=== PATIENT | male | born 1960 | race Caucasian/White ===

== ENCOUNTER 2023-06-25 13:41 | Inpatient (IN) | payer MEDICARE, OTHER ==
[2023-06-25 14:19] LABS: Glucose,Whole Blood 532 mg/dL (70-110)
[2023-06-25 14:48] LABS: Basophils % (A) 0 %; Eosinophils # (A) 0.1 k/uL (0-0.7); Eosinophils % (A) 0 %; HGB 10.4 gm/dL (13.0-17.5); Lymphocytes # (A) 1.2 k/uL (1.0-4.8); Lymphocytes % (A) 10 %; MCH 31.6 pg (25.0-35.0); MCHC 35.8 g/dL (31.0-37.0); MCV 88.3 fL (80.0-100.0); Mean Platelet Volume 9.3; Monocytes # (A) 1.1 k/uL (0-1.0); Monocytes % (A) 9 %; Neutrophils # (A) 9.2 k/uL (1.3-7.7); Neutrophils % (A) 78 %; Platelet Count 187 k/uL (150-450); RBC 3.28 m/uL (4.30-5.90); RDW 13.1 % (11.5-15.5); WBC 11.9 k/uL (3.8-10.6)
[2023-06-25 15:15] LABS: ALT 68 U/L (4-49); AST 38 U/L (17-59); African American GFR (CKD) 38 (>60 ml/min/1.73 sqM); Albumin 4.2 g/dL (3.5-5.0); Alkaline Phosphatase 153 U/L (38-126); Anion Gap 13 mmol/L; Blood Urea Nitrogen 90 mg/dL (9-20); Calcium 8.9 mg/dL (8.4-10.2); Carbon Dioxide 25 mmol/L (22-30); Chloride 103 mmol/L (98-107); Glucose 495 mg/dL (74-99); Non-African American GFR(CKD) 32 (>60 ml/min/1.73 sqM); Potassium 4.7 mmol/L (3.5-5.1); Sodium 141 mmol/L (137-145); Total Bilirubin 0.5 mg/dL (0.2-1.3); Total Protein 6.9 g/dL (6.3-8.2)
--- NOTE | 2023-06-25 15:31 | ED ---
General Adult HPI - General Chief complaint: Altered Mental Status Stated complaint: Hyperglycemia Time Seen by Provider: 06/25/23 13:50 Source: patient, EMS, RN notes reviewed, old records reviewed Mode of arrival: EMS Limitations: no limitations, altered mental status - History of Present Illness Initial comments: This is a 63-year-old male who was transferred to us from the hospital. We were told the patient was in DKA and renal failure. Patient arrived they aren't giving him Ativan and Haldol and [address] here for combativeness. Patient was unable to give any history and no one came with the patient. Patient did not appear to be in DKA from the lab work sent. Ear to be dehydrated with hyperglycemia as well as a possible mass on the CAT scan and some acute renal failure. Review of Systems ROS Statement: Those systems with pertinent positive or pertinent negative responses have been documented in the HPI. ROS Other: All systems not noted in ROS Statement are negative. Past Medical History Past Medical History: Unable to Obtain History of Any Multi-Drug Resistant Organisms: Unobtainable Past Surgical History: Unable to Obtain Past Psychological History: Unable to Obtain Smoking Status: Unknown if ever smoked General Exam - General Exam Comments Initial Comments: GENERAL: Patient is well-developed and well-nourished. Patient is nontoxic and well- hydrated and is in mild distress. ENT: Neck is soft and supple. No significant lymphadenopathy is noted. Oropharynx is clear. Moist mucous membranes. Neck has full range of motion without eliciting any pain. EYES: The sclera were anicteric and conjunctiva were pink and moist. Extraocular movements were intact and pupils were equal round and reactive to light. Eyelids were unremarkable. PULMONARY: Unlabored respirations. Good breath sounds bilaterally. No audible rales rhonchi or wheezing was noted. CARDIOVASCULAR: There is a regular rate and rhythm without any murmurs gallops or rubs. ABDOMEN: Soft and nontender with normal bowel sounds. SKIN: Skin is clear with no lesions or rashes and otherwise unremarkable. NEUROLOGIC: Patient is alert and oriented 0. Unable to complete neuro exam since patient was very obtunded secondary to medications MUSCULOSKELETAL: Normal extremities with adequate strength and full range of motion. LYMPHATICS: No significant lymphadenopathy is noted PSYCHIATRIC: Normal psychiatric evaluation. Limitations: no limitations, altered mental status Course Vital Signs 06/25/23 06/25/23 06/25/23 13:49 14:22 15:16 Temperature 98.6 F Pulse Rate 63 73 73 Respiratory 18 18 18 Rate Blood Pressure 99/57 136/74 O2 Sat by Pulse 95 99 96 Oximetry Medical Decision Making - Medical Decision Making EKG was interpreted by myself. EKG shows a sinus rhythm at 66 bpm MS interval is 154 QRS is 117 QT interval is 417 QTC is 4:30. EKG shows no ST segment elevation or depression. Was pt. sent in by a medical professional or institution (, PA, OPERATING ROOM MANAGER, urgent care, hospital, or retirement...) When possible be specific @ -[facility] sent the patient to us Did you speak to anyone other than the patient for history (EMS, parent, family, police, friend...)? What history was obtained from this source @ -I got all the history from the [facility] ER doctor Did you review nursing and triage notes (agree or disagree)? Why? @ -I reviewed and agree with nursing and triage notes Were old charts reviewed (outside hosp., previous admission, EMS record, old EKG, old radiological studies, urgent care reports/EKG's, retirement records)? Report findings @ -I reviewed all the charts and lab work and radiological studies that came with the patient from [facility] Differential Diagnosis (chest pain, altered mental status, abdominal pain women, abdominal pain men, vaginal bleeding, weakness, fever, dyspnea, syncope, headache, dizziness, GI bleed, back pain, seizure, CVA, palpatations, mental health, musculoskeletal)? @ -Differential Altered Mental Status: Hypoglycemia, DKA, hypercapnia, ETOH, overdose, CO poisoning, trauma, myxedema coma, HTN encephalopathy, infection, encephalitis, psychosis, intercranial hemorrhage, hepatic encephalopathy, meningitis, CVA, this is not meant to be an all-inclusive list EKG interpreted by me (3pts min.). @ -As above X-rays interpreted by me (1pt min.). @ -None done CT interpreted by me (1pt min.). @ -None done U/S interpreted by me (1pt. min.). @ -None done What testing was considered but not performed or refused? (CT, X-rays, U/S, labs)? Why? @ -None What meds were considered but not given or refused? Why? @ -None Did you discuss the management of the patient with other professionals (professionals i.e. DrDejuan, PA, OPERATING ROOM MANAGER, lab, RT, psych nurse, social services specialist, bilingual student tutor, teacher, returning officer, pillowcase cleaner)? Give summary @ -I spoke with sounds physicians and they agreed to admit the patient admitted the patient I wrote admitting orders Was smoking cessation discussed for >3mins.? @ -No Was critical care preformed (if so, how long)? @ -No Were there social determinants of health that impacted care today? How? (Homelessness, low income, unemployed, alcoholism, drug addiction, transportation, low edu. Level, literacy, decrease access to med. care, intermediate, rehab)? @ -No Was there de-escalation of care discussed even if they declined (Discuss DNR or withdrawal of care, Hospice)? DNR status @ -No What co-morbidities impacted this encounter? (DM, HTN, Smoking, COPD, CAD, Cancer, CVA, ARF, Chemo, Hep., AIDS, mental health diagnosis, sleep apnea, morbid obesity)? @ -None Was patient admitted / discharged? Hospital course, mention meds given and route, prescriptions, significant lab abnormalities, going to OR and other pertinent info. @ -Patient was Insulin Drip. Patient Received 2 L of Fluid. Patient's CT Showed a Mass in the Mediastinum Which They Did Not Mention with Triage the Patient. Patient Was Not Acidotic so Patient Is Not in DKA. Patient's Creatinine Was Elevated but since the Fluids Were Given at His Come down. Undiagnosed new problem with uncertain prognosis? @ -No Drug Therapy requiring intensive monitoring for toxicity (Heparin, Nitro, Insulin, Cardizem)? @ -No Were any procedures done? @ -No Diagnosis/symptom? @ -Dehydration Acute, or Chronic, or Acute on Chronic? @ -Acute Uncomplicated (without systemic symptoms) or Complicated (systemic symptoms)? @ -Complicated Side effects of treatment? @ -No Exacerbation, Progression, or Severe Exacerbation? @ -No Poses a threat to life or bodily function? How? (Chest pain, USA, CA, pneumonia, PE, COPD, DKA, ARF, appy, cholecystitis, CVA, Diverticulitis, Homicidal, Suicidal, threat to staff... and all critical care pts) @ -Yes this could lead to severe dehydration and poor perfusion and end organ dysfunction Diagnosis/symptom? @ -Mediastinal mass Acute, or Chronic, or Acute on Chronic? @ -Acute Uncomplicated (without systemic symptoms) or Complicated (systemic symptoms)? @ -Complicated Side effects of treatment? @ -none Exacerbation, Progression, or Severe Exacerbation] @ -no Poses a threat to life or bodily function? @ -no Diagnosis/symptom? @ -Acute renal failure Acute, or Chronic, or Acute on Chronic? @ -Acute Uncomplicated (without systemic symptoms) or Complicated (systemic symptoms)? @ -Complicated Side effects of treatment? @ -none Exacerbation, Progression, or Severe Exacerbation] @ -no Poses a threat to life or bodily function? @ -no - Lab Data Result diagrams: 06/25/23 14:23 06/25/23 14: Lab Results 06/25/23 06/25/23 06/25/23 Range/Units 14:17 14:23 14:23 WBC 11.9 H (3.8-10.6) k/uL RBC 3.28 L (4.30-5.90) m/uL Hgb 10.4 L (13.0-17.5) gm/dL Hct 29.0 L (39.0-53.0) % MCV 88.3 (80.0-100.0) fL MCH 31.6 (25.0-35.0) pg MCHC 35.8 (31.0-37.0) g/dL RDW 13.1 (11.5-15.5) % Plt Count 187 (150-450) k/uL MPV 9.3 Neutrophils % 78 % Lymphocytes % 10 % Monocytes % 9 % Eosinophils % 0 % Basophils % 0 % Neutrophils # 9.2 H (1.3-7.7) k/uL Lymphocytes # 1.2 (1.0-4.8) k/uL Monocytes # 1.1 H (0-1.0) k/uL Eosinophils # 0.1 (0-0.7) k/uL Basophils # 0.0 (0-0.2) k/uL Sodium 141 (137-145) mmol/L Potassium 4.7 (3.5-5.1) mmol/L Chloride 103 (98-107) mmol/L Carbon Dioxide 25 (22-30) mmol/L Anion Gap 13 mmol/L BUN 90 H (9-20) mg/dL Creatinine 2.08 H (0.66-1.25) mg/dL Est GFR (CKD-EPI)AfAm 38 (>60 ml/min/1.73 sqM) Est GFR (CKD-EPI)NonAf 32 (>60 ml/min/1.73 sqM) Glucose 495 H (74-99) mg/dL POC Glucose (mg/dL) 532 H (70-110) mg/dL POC Glu Propagation Manager [facility]ASS[facility] Nathalie Gallardo Calcium 8.9 (8.4-10.2) mg/dL Total Bilirubin 0.5 (0.2-1.3) mg/dL AST 38 (17-59) U/L ALT 68 H (4-49) U/L Alkaline Phosphatase 153 H (38-126) U/L Total Protein 6.9 (6.3-8.2) g/dL Albumin 4.2 (3.5-5.0) g/dL Disposition Clinical Impression: Dehydration, Acute renal failure, Hyperglycemia, Mediastinal mass Disposition: ADMITTED IP TO THIS HOSP Referrals: None,Stated [Primary Care Provider] - 1-2 days Time of Disposition: 15:31
--- NOTE | 2023-06-25 15:45 | P.HPIM ---
History of Present Illness H&P Date: 06/25/23 Patient is a 63-year-old male with no well known past medical history presenting from outside hospital for hyperglycemia, altered mentation. Patient unable to provide any meaningful history. Records reviewed from outside facility. On initial presentation, he should still EDC was 10.4, hemoglobin 9.5, anion gap 16, bicarb 24, BUN 85, creatinine 2.9, glucose 650, pH 7.358, pCO2 37, lactate 1.6, respiratory viral panel negative, troponin negative, acetone minimal, UA negative. EKG shows sinus rhythm. CT head showed no acute process. CT abdomen showed constipation and distended bladder. CT neck showed right lobe thyroid mass. Per records, patient received 2 mg of IV Haldol, 0.5 mg of IV Ativan as well as was started on insulin drip. Per report, patient received 5 mg of IV Versed on the way from other hospital. In the ED at our facility, patient saturating 95% on 3 L, rest of the vitals signs were otherwise normal limits. Point of care glucose was 532. Labs at our facility showed WBC of 11.9, hemoglobin of 10.4, BUN 90, creatinine on 08, glucose of 495, mildly elevated ALT of 68, ALP 153. Patient being admitted for acute metabolic encephalopathy as well as possible HHS. Pertinent positives and negatives as discussed in HPI, a complete review of systems was performed and all other systems are negative. Patient seen and examined at bedside. Vital signs reviewed General: nontoxic, no distress, appears at stated age Derm: warm, dry Head: atraumatic, normocephalic, symmetric Eyes: EOMI, no lid lag, anicteric sclera, pupils equal round reactive to light ENT: Nose and ears atraumatic Neck: No thyromegaly, supple Mouth: no lip lesion, mucus membranes moist Cardiovascular: S1S2 reg, no murmur, no edema Lungs: clear to auscultation bilateral, no rhonchi, no rales, no wheeze, no accessory muscle use Abdominal: soft, nontender to palpation, no guarding, no appreciable organomegaly Ext: no gross muscle atrophy, muscle strength muscle strength 5 out of 5 in all 4 extremities, no contractures Neuro: CN II-XII grossly intact Psych: Alert, oriented, appropriate affect Assessment/Plan: Acute metabolic encephalopathy Hyperglycemia, concerning for HHS versus DKA Leukocytosis Normocytic anemia, unknown baseline Acute kidney injury, baseline creatinine Constipation Thyroid mass Urinary retention -CT head did not show any acute process -TSH, B12, folic acid, A1c pending -Renal ultrasound ordered -Place Becerril catheter -Repeat CMP tomorrow -Blood cultures ordered -UA negative at outside facility -Thyroid ultrasound ordered -MiraLAX when patient is more awake -Continue insulin drip, monitor for hypoglycemia -No records available in regards to family contact or past medical history -Patient also received 5 mg of IV Versed en route from other hospital, as well as 2 mg of IV Haldol 0.5 mg of Ativan at outside hospital The patient is admitted with an anticipated greater than 2 midnight stay as inp atient status for evaluation of encephalopathy. Surrogate decision-maker: Not available CODE STATUS: Full code DVT prophylaxis: Subcu heparin Anticipated discharge date: Pending clinical course Anticipated discharge place: Pending clinical course A total of 55 minutes was spent on the care of this complex patient more than 50% of the time was spent in counseling and care coordination. Past Medical History Past Medical History: Unable to Obtain History of Any Multi-Drug Resistant Organisms: Unobtainable Past Surgical History: Unable to Obtain Past Psychological History: Unable to Obtain Smoking Status: Unknown if ever smoked Medications and Allergies Allergies Allergy/AdvReac Type Severity Reaction Status Date / Time latex Allergy Itching Verified 06/25/23 15:42 Penicillins Allergy Itching Verified 06/25/23 15:41 Physical Exam Vitals: Vital Signs Temp Pulse Resp BP Pulse Ox 06/25/23 15:16 73 18 136/74 96 06/25/23 14:22 98.6 F 73 18 99 06/25/23 13:49 63 18 99/57 95 Intake and Output 06/25/23 06/25/23 06/25/23 06:59 14:59 22:59 Other: Weight 77.111 kg Results CBC & Chem 7: 06/25/23 14:23 06/25/23 14:23 Labs: Abnormal Lab Results - Last 24 Hours (Table) 06/25/23 06/25/23 06/25/23 Range/Units 14:17 14:23 14:23 WBC 11.9 H (3.8-10.6) k/uL RBC 3.28 L (4.30-5.90) m/uL Hgb 10.4 L (13.0-17.5) gm/dL Hct 29.0 L (39.0-53.0) % Neutrophils # 9.2 H (1.3-7.7) k/uL Monocytes # 1.1 H (0-1.0) k/uL BUN 90 H (9-20) mg/dL Creatinine 2.08 H (0.66-1.25) mg/dL Glucose 495 H (74-99) mg/dL POC Glucose (mg/dL) 532 H (70-110) mg/dL ALT 68 H (4-49) U/L Alkaline Phosphatase 153 H (38-126) U/L
[2023-06-25] MEDS: SODIUM CHLORIDE 0.9% 1,000 ML IV SCH ×2 (15:54→23:09)
[2023-06-25] MEDS: INSULIN REGULAR 100 UNIT in SODIUM CHLORIDE 0.9% 100 ML IV SCH ×2 (15:58→23:31)
[2023-06-25 16:01] LABS: Glucose,Whole Blood 569 mg/dL (70-110)
[2023-06-25] MEDS ORDERED: SODIUM CHLORIDE 0.9% 1,000 ML IV STA (16:06)
[2023-06-25 16:51] LABS: Glucose,Whole Blood 556 mg/dL (70-110)
[2023-06-25 17:32] LABS: African American GFR (CKD) 37 (>60 ml/min/1.73 sqM); Anion Gap 16 mmol/L; Blood Urea Nitrogen 86 mg/dL (9-20); Carbon Dioxide 23 mmol/L (22-30); Chloride 102 mmol/L (98-107); Non-African American GFR(CKD) 32 (>60 ml/min/1.73 sqM); Phosphorus 5.1 mg/dL (2.5-4.5); Potassium 4.7 mmol/L (3.5-5.1); Sodium 141 mmol/L (137-145)
[2023-06-25 17:41] LABS: Glucose 519 mg/dL (74-99)
[2023-06-25 17:52] LABS: Glucose,Whole Blood 527 mg/dL (70-110)
[2023-06-25] MEDS ORDERED: OLANZapine 10 MG VIAL IM STA (17:52)
[2023-06-25] MEDS ORDERED: LORazepam 2 MG/ML INJ IV STA (18:44)
[2023-06-25 18:48] LABS: Glucose,Whole Blood 503 mg/dL (70-110)
--- NOTE | 2023-06-25 19:01 | P.MHFACE ---
Face to Face Restrain/Seclus - Evaluation Patient's Immediate Situation: Endangers self safety Patient's Reaction to the Intervention: Combative, Restless Patient's Medical & Behavioral Condition: Confused, Agitated Patient's Medical & Behavioral Condition - Comment: remains encephalopathic Need to Continue or Terminate Restraint or Seclusion: Continue Need to Continue or Terminate Restraint/Seclusion - Comment: Patient being transferred to ICU for worsening agitation. Face to Face Eval of Restraint Date: 06/25/23 Face to Face Eval of Restraint Time: 18:45
[2023-06-25 19:20] LABS: African American GFR (CKD) 43 (>60 ml/min/1.73 sqM); Alcohol <10 mg/dL; Anion Gap 11 mmol/L; Blood Urea Nitrogen 84 mg/dL (9-20); Carbon Dioxide 28 mmol/L (22-30); Chloride 107 mmol/L (98-107); Glucose 423 mg/dL (74-99); Non-African American GFR(CKD) 37 (>60 ml/min/1.73 sqM); Potassium 3.9 mmol/L (3.5-5.1); Sodium 146 mmol/L (137-145)
[2023-06-25 19:59] LABS: Glucose,Whole Blood 472 mg/dL (70-110)
[2023-06-25] MEDS: DEXMEDETOMIDINE/0.9% NACL(PMX) 400 MCG in EMPTY BAG 1 BAG IV SCH (20:09)
[2023-06-25] MEDS ORDERED: LORazepam 2 MG/ML INJ IV PRN (20:24)
[2023-06-25 20:42] LABS: Appearance,Urine Clear (Clear); Bilirubin,Urine Negative (Negative); Blood,Urine Moderate (Negative); Color,Urine Colorless; Glucose,Urine (UA) 4+ (Negative); Ketones,Urine 1+ (Negative); Leukocyte Esterase,Urine Trace (Negative); Mucus,Urine Rare /hpf; Nitrite,Urine Negative (Negative); Protein,Urine Negative (Negative); RBC,Urine 5 /hpf (0-5); Specific Gravity,Urine 1.019 (1.001-1.035); Squamous Epithelial Cell,Urine <1 /hpf (0-4); Urobilinogen,Urine <2.0 mg/dL (<2.0); WBC,Urine 4 /hpf (0-5)
[2023-06-25] MEDS: LORazepam 2 MG/ML INJ IV PRN ×2 (20:47→20:52)
[2023-06-25 21:27] LABS: Glucose,Whole Blood 295 mg/dL (70-110)
[2023-06-25 22:14] LABS: Glucose,Whole Blood 235 mg/dL (70-110)
[2023-06-25] MEDS: D5-0.45% NACL WITH KCL 20MEQ/L 1,000 ML IV SCH (22:37)
[2023-06-25] MEDS: DIVALPROEX ER 500 MG TAB.ER.24H PO SCH (23:09)
[2023-06-25] MEDS: ATORVASTATIN 80 MG TAB PO SCH (23:09)
[2023-06-25] MEDS: QUEtiapine 100 MG TAB PO SCH (23:10)
[2023-06-25 23:14] LABS: Glucose,Whole Blood 203 mg/dL (70-110)
[2023-06-26 00:14] LABS: ALT 58 U/L (4-49); AST 45 U/L (17-59); African American GFR (CKD) 46 (>60 ml/min/1.73 sqM); Albumin 3.7 g/dL (3.5-5.0); Alkaline Phosphatase 104 U/L (38-126); Anion Gap 9 mmol/L; Blood Urea Nitrogen 72 mg/dL (9-20); Calcium 8.9 mg/dL (8.4-10.2); Carbon Dioxide 29 mmol/L (22-30); Chloride 112 mmol/L (98-107); Glucose 166 mg/dL (74-99); Non-African American GFR(CKD) 40 (>60 ml/min/1.73 sqM); Sodium 150 mmol/L (137-145); Total Bilirubin 0.3 mg/dL (0.2-1.3); Total Protein 6.4 g/dL (6.3-8.2)
[2023-06-26 00:16] LABS: Glucose,Whole Blood 164 mg/dL (70-110)
[2023-06-26 01:26] LABS: Glucose,Whole Blood 148 mg/dL (70-110)
[2023-06-26 02:01] LABS: Glucose,Whole Blood 120 mg/dL (70-110)
[2023-06-26] MEDS: DEXMEDETOMIDINE/0.9% NACL(PMX) 400 MCG in EMPTY BAG 1 BAG IV SCH ×4 (02:02→23:15)
[2023-06-26 02:39] LABS: Glucose,Whole Blood 121 mg/dL (70-110)
--- NOTE | 2023-06-26 03:00 | P.CNPUL ---
History of Present Illness Consult date: 06/26/23 Requesting physician: Murtaza Vaughan Reason for consult: other (ICU management) Chief complaint: Altered mental status History of present illness: I am seeing this patient in new consultation today 06/26/2023 in the intensive care unit after the patient was transferred from [facility] for altered mental status and high blood sugars. Patient is a 63-year-old white male whose past medical history is largely unknown. He is currently confused and obtunded, unable to answer questions. Apparently, patient presented to [facility] yesterday he was found to be combative and confused. His blood sugars were also found to be severely high at 808 g/dL. Serum CO2 was 20, anion gap 23. Ketones were mildly positive. Possible in mild DKA vs HHS. Patient did have an initial workup, including a brain CT which did not show any acute intracranial process. Urine drug screen also negative. EtOH level at our facility was less than 10. A CT of the chest done at the outside facility reported a mass within the superior mediastinum favoring to be from the right lobe of the thyroid. There were also postsurgical open-heart changes, and dependent atelectasis without acute infiltrates. Upon transfer, the patient became combative and agitated. He required restraints, multiple doses of Ativan, and a dose of Zyprexa. Patient was then admitted to the intensive care unit, and started on Precedex which is currently infusing at 0.12 mcg/kg per hour. He is fairly sedated on this dose, and it could be weaned down. He does not follow commands, briefly opens his eyes to painful stimuli. He is currently on 3 L nasal cannula. SpO2 was in reading at 98%. Insulin is currently infusing at 12.7 units per hour. Most recent BMP at our facility shows a sodium of 150, potassium 4, chloride 112, serum bicarb of 29, anion gap 9, BUN 72, creatinine 1.76, and blood glucose is down to 166. D5W/half-normal saline with 20 meq K is infusing at 150 ML's per hour. Patient's hemoglobin A1c is 13.6. LFTs are mildly elevated. TSH level was 1.24. CBC done in our facility shows a WBC count 11.9, hemoglobin 10.4, hematocrit 29, platelets 187. Urinalysis not significant for urinary tract infection. He is afebrile. Vital signs are stable. He will be monitored in the intensive care unit. Review of Systems ROS unobtainable: due to mental status Past Medical History Past Medical History: Unable to Obtain History of Any Multi-Drug Resistant Organisms: Unobtainable Past Surgical History: Unable to Obtain Past Psychological History: Unable to Obtain Smoking Status: Unknown if ever smoked Medications and Allergies Home Medications Medication Instructions Recorded Confirmed Type Aspirin EC [Ecotrin Low Dose] 81 mg PO DAILY@1500 06/25/23 06/25/23 History Atorvastatin [Lipitor] 80 mg PO HS 06/25/23 06/25/23 History Cyanocobalamin/Mecobalamin/Folic 1 tab PO DAILY@1500 06/25/23 06/25/23 History Acid Divalproex ER [Depakote ER] 1,000 mg PO HS 06/25/23 06/25/23 History Ezetimibe [Zetia] 10 mg PO DAILY@0800 06/25/23 06/25/23 History Furosemide [Lasix] 80 mg PO DAILY@0800 06/25/23 06/25/23 History Insulin Aspart [NovoLOG Flexpen] 15 units SQ AC-LUNCH 06/25/23 06/25/23 History Insulin Aspart [NovoLOG Flexpen] 25 units SQ AC-BRKFST 06/25/23 06/25/23 History Insulin Aspart [NovoLOG Flexpen] 28 units SQ AC-SUPPER 06/25/23 06/25/23 History Insulin Aspart [NovoLOG Flexpen] See Protocol SQ AC-TID 06/25/23 06/25/23 History Insulin Glargine,Hum.rec.anlog 34 units SQ 06/25/23 06/25/23 History [Lantus Solostar Pen] Isosorbide Mononitrate ER [Imdur] 30 mg PO DAILY@0800 06/25/23 06/25/23 History Loratadine 10 mg PO DAILY@0800 06/25/23 06/25/23 History Meclizine [Antivert] 12.5 mg PO BID@0800,2100 06/25/23 06/25/23 History Meclizine [Antivert] 25 mg PO DAILY@1500 06/25/23 06/25/23 History Nitroglycerin Sl Tabs [Nitrostat] 0.4 mg SL Q5M PRN 06/25/23 06/25/23 History Omeprazole 40 mg PO DAILY@0800 06/25/23 06/25/23 History Propranolol HCl [Inderal] 80 mg PO HS 06/25/23 06/25/23 History Propranolol HCl [Inderal] 160 mg PO DAILY@0800 06/25/23 06/25/23 History QUEtiapine FUMARATE [SEROquel] 300 mg PO HS 06/25/23 06/25/23 History Venlafaxine HCl ER [Effexor Xr] 150 mg PO BID@0800,1500 06/25/23 06/25/23 History Vitamin E (Dl,Tocopheryl Acet) 400 unit PO BID@0800,1500 06/25/23 06/25/23 Hi story [Vitamin E (400 Iu = 180 mg)] buPROPion SR [Wellbutrin SR] 150 mg PO BID@0700,1500 06/25/23 06/25/23 History Allergies Allergy/AdvReac Type Severity Reaction Status Date / Time latex Allergy Itching Verified 06/25/23 15:42 Penicillins Allergy Itching Verified 06/25/23 15:41 Physical Exam Vitals: Vital Signs Temp Pulse Pulse Resp BP BP Pulse Ox 06/26/23 02:00 61 19 110/62 99 06/26/23 01:30 64 21 111/59 92 L 06/26/23 01:00 65 21 118/64 90 L 06/26/23 00:30 63 26 H 109/64 89 L 06/26/23 00:00 98.3 F 64 19 98/60 98 06/25/23 23:30 67 21 109/62 94 L 06/25/23 23:08 70 20 109/62 96 06/25/23 23:00 71 21 124/65 95 06/25/23 22:30 74 20 134/65 94 L 06/25/23 22:00 75 21 151/73 94 L 06/25/23 21:30 79 20 157/68 92 L 06/25/23 21:00 98.1 F 76 23 172/69 94 L 06/25/23 20:30 163/79 97 06/25/23 20:20 163/79 06/25/23 17:55 99.3 F 89 24 164/77 96 06/25/23 16:58 64 18 110/57 100 06/25/23 15:16 73 18 136/74 96 06/25/23 14:22 98.6 F 73 18 99 06/25/23 13:49 63 18 99/57 95 Intake and Output 06/25/23 06/25/23 06/26/23 14:59 22:59 06:59 Intake Total 64.381 912.034 Output Total 850 Balance 64.381 62.034 Intake: IV 850 D5-0.45% NaCl with KCl 450 20Meq/l 1,000 ml @ 150 mls/hr IV .[id number] [facility]AYDE Rx# :[id number] Sodium Chloride 0.9% 1, 400 000 ml @ 200 mls/hr IV . Q5H [facility]AYDE Rx#:[id number] Intake, IV Titration 64.381 62.034 Amount Dexmedetomidine/0.9% NaCl 8.098 8.751 (Pmx) 400 mcg In Empty Bag 1 bag @ 0.2 MCG/KG/HR 3.856 mls/hr IV .Q24H [facility]AYDE Rx#:[id number] Insulin Regular 100 unit 56.283 53.283 In Sodium Chloride 0.9% 100 ml @ 0.1 UNITS/KG/HR 7.788 mls/hr IV .[id number] HAYDE Rx#:[id number] Output: Urine 850 Other: Voiding Method Indwelling Catheter Indwelling Catheter Weight 77.111 kg GENERAL EXAM: Obtunded, 63-year-old white male, sedated in no apparent distress. HEAD: Normocephalic and atraumatic EYES: Normal reaction of pupils, equal size. NOSE: Clear with pink turbinates. THROAT: No erythema or exudates. NECK: No masses, no JVD. CHEST: No chest wall deformity. LUNGS: Equal air entry with no crackles, wheeze, rhonchi or dullness. On 3 L/m nasal cannula. No conversational dyspnea or accessory muscle use.. CVS: S1 and S2 normal with no audible murmur, regular rhythm. No extra heart sounds ABDOMEN: No hepatosplenomegaly, active bowel sounds, no guarding or rigidity. SPINE: No scoliosis or deformity SKIN: No rashes CENTRAL NERVOUS SYSTEM: Patient is fairly sedated and obtunded. Depressed DTRs in all 4 extremities. No clonus. EXTREMITIES: Currently in bilateral upper extremities soft restraints. Neurovascular status of upper extremity is intact. There is no peripheral edema, clubbing, or cyanosis. Peripheral pulses are intact. Results - Laboratory Findings CBC and BMP: 06/26/23 05:28 06/26/23 05:28 Abnormal lab findings: Abnormal Labs 06/25/23 06/25/23 06/25/23 14:17 14:23 14:23 WBC 11.9 H RBC 3.28 L Hgb 10.4 L Hct 29.0 L Neutrophils # 9.2 H Monocytes # 1.1 H Sodium Chloride BUN 90 H Creatinine 2.08 H Glucose 495 H POC Glucose (mg/dL) 532 H Hemoglobin A1c Phosphorus ALT 68 H Alkaline Phosphatase 153 H Vitamin B12 Folate Urine Glucose (UA) Urine Ketones Urine Blood Ur Leukocyte Esterase Urine Mucus 06/25/23 06/25/23 06/25/23 15:54 16:28 16:50 WBC RBC Hgb Hct Neutrophils # Monocytes # Sodium Chloride BUN 86 H Creatinine 2.09 H Glucose 519 H* POC Glucose (mg/dL) 569 H 556 H Hemoglobin A1c Phosphorus 5.1 H ALT Alkaline Phosphatase Vitamin B12 Folate Urine Glucose (UA) Urine Ketones Urine Blood Ur Leukocyte Esterase Urine Mucus 06/25/23 06/25/23 06/25/23 16:51 16:51 16:51 WBC RBC Hgb Hct Neutrophils # Monocytes # Sodium Chloride BUN Creatinine Glucose POC Glucose (mg/dL) Hemoglobin A1c 13.6 H Phosphorus ALT Alkaline Phosphatase Vitamin B12 3369.0 H Folate 40.00 H Urine Glucose (UA) Urine Ketones Urine Blood Ur Leukocyte Esterase Urine Mucus 06/25/23 06/25/23 06/25/23 17:45 17:50 18:42 WBC RBC Hgb Hct Neutrophils # Monocytes # Sodium Chloride BUN Creatinine Glucose POC Glucose (mg/dL) 527 H 503 H Hemoglobin A1c Phosphorus ALT Alkaline Phosphatase Vitamin B12 Folate Urine Glucose (UA) 4+ H Urine Ketones 1+ H Urine Blood Moderate H Ur Leukocyte Esterase Trace H Urine Mucus Rare H 06/25/23 06/25/23 06/25/23 18:50 19:57 21:26 WBC RBC Hgb Hct Neutrophils # Monocytes # Sodium 146 H Chloride BUN 84 H Creatinine 1.88 H Glucose 423 H POC Glucose (mg/dL) 472 H 295 H Hemoglobin A1c Phosphorus ALT Alkaline Phosphatase Vitamin B12 Folate Urine Glucose (UA) Urine Ketones Urine Blood Ur Leukocyte Esterase Urine Mucus 06/25/23 06/25/23 06/25/23 22:13 23:13 23:23 WBC RBC Hgb Hct Neutrophils # Monocytes # Sodium 150 H Chloride 112 H BUN 72 H Creatinine 1.76 H Glucose 166 H POC Glucose (mg/dL) 235 H 203 H Hemoglobin A1c Phosphorus ALT 58 H Alkaline Phosphatase Vitamin B12 Folate Urine Glucose (UA) Urine Ketones Urine Blood Ur Leukocyte Esterase Urine Mucus 06/26/23 06/26/23 06/26/23 00:14 01:23 01:59 WBC RBC Hgb Hct Neutrophils # Monocytes # Sodium Chloride BUN Creatinine Glucose POC Glucose (mg/dL) 164 H 148 H 120 H Hemoglobin A1c Phosphorus ALT Alkaline Phosphatase Vitamin B12 Folate Urine Glucose (UA) Urine Ketones Urine Blood Ur Leukocyte Esterase Urine Mucus - Diagnostic Findings CT scan - chest: report reviewed Assessment and Plan Assessment: Acute Hyperglycemia, related to mild DHHS. Altered mental status, likely related to toxic metabolic encephalopathy, secondary to above. CAT scan of the brain showed some chronic white matter changes. No CVA. No seizure activity. Poorly controlled diabetes mellitus. The patient will maintain on insulin on outpatient basis and he has been taken Lantus 34 units at bedtime, NovoLog 15 units at lunch, 25 at breakfast and 28 at supper. 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 No evidence of any stridor Acute hypoxemic respiratory failure, currently on BiPAP at a pressure of 14/6 cm of water with FiO2 of 40% with a pulse ox of 94% acute kidney injury, no baseline creatinine available, improving and the patient is currently on IV fluids Hypernatremia History of uncontrolled insulin-dependent diabetes mellitus, hemoglobin A1c of 13.6 History of anxiety/depression/bipolar disorder, maintain on a combination of Seroquel, Effexor, Wellbutrin, and Depakote. Coronary artery disease with previous coronary artery bypass surgery Plan: Patient is currently on the DKA protocol. Patient's blood glucose has corrected nicely at a rate to 50-100 mg/dL per hour. Continue on the insulin infusion overnight, and will likely transition to subcu insulin in the morning. He is unable to tolerate an oral diet at this point. Patient is obtunded, hold Precedex for now CT of the brain at outside facility did not report any acute intracranial process. Urine drug screen is negative. Serum EtOH level less than 10. Assess readiness for restraint removable Obtain chest x-ray Thyroid ultrasound ordered Patient will be monitored in the intensive care unit. Prognosis is guarded. I have personally seen and examined the patient, performed the documentation and the assessment and plan as written. Number of minutes spent on the visit:20 This is a 63-year-old male patient, poorly controlled diabetic, presented to us with acute hyperglycemia, probably a hyperosmolar nonketotic state and the patie nt does not have any significant anion gap metabolic acidosis of this point in time. The patient is also encephalopathic. Currently on IV fluids with D5 half-normal saline at and 20 mg of potassium running at 150 mL an hour. Insulin drip is running at 7 units an hour. The patient's is encephalopathic, at times restless and agitated. He has an extensive psychiatric history maintain on a combination of Seroquel s, Depakote, Wellbutrin and Effexor on outpatient basis. Currently is on Precedex which is running at 1 mcg/kg/h and his agitation is under adequate control. He has 2 point restraints and he has also subsided the bedside. CAT scan of the brain that was done at the time of admission showed no evidence of any intracranial process. There was some mild white matter hypodensities consistent with chronic microvascular changes. Computed tomography scan of the chest that was done without contrast showed a low-density mass measuring 2.3 x 2.1 cm involving the right lobe of the thyroid with a calcified rim. Lungs showed some dependent atelectatic changes. Gallbladder was within normal limits. The blood work from today shows a BUN of 71 and a creatinine of 1.5. Sodium level is at 148, the physical 7.9 with a hemoglobin of 9 and a platelet count of 158. Alcohol level is less than 10. UA is positive for ketones. Anion gap is currently at 9 with a serum bicarb of 26. C hest x-ray that was done this morning shows postthoracotomy changes, small hiatal hernia, no airspace disease. The patient is currently on BiPAP for respiratory support and he is currently on a BiPAP pressure of 14/6 cm of water The plan for now is to continue the insulin drip. I'm going to use the regular insulin infusion intended for ICU patients. We'll give an additional 2 L of normal saline at this point in time. We'll check a Depakote level. No evidence of any anion gap metabolic acidosis at this point in time. Keep the Precedex. We will gradually wean this patient off the BiPAP. We'll obtain a ultrasound of the neck to evaluate for this superior mediastinal/thyroid mass. No stridor on physical examination. No palpable masses on physical examination. He is a full code. We'll continue to follow. This is a critical care evaluation. The patient will be kept in ICU for now. Critical care evaluation,, >30 min Time with Patient: Greater than 30
[2023-06-26] MEDS ORDERED: SODIUM CHLORIDE 0.9% 1,000 ML IV ONE (03:02)
[2023-06-26] MEDS: LACTATED RINGERS 1,000 ML IV SCH ×3 (03:07→06:44)
[2023-06-26 03:11] LABS: Glucose,Whole Blood 129 mg/dL (70-110)
--- NOTE | 2023-06-26 03:27 | XR ---
EXAM: XR Chest, 1 View CLINICAL HISTORY: ITS.REASON XR Reason: dyspnea TECHNIQUE: Frontal view of the chest. COMPARISON: No previous studies. FINDINGS: Lungs: There is patchy airspace disease the right lung base. A 2.2 x 1.8 cm density is noted posterior medially at the right lung base of uncertain etiology. Pleural space: Unremarkable. No pneumothorax. Heart: Unremarkable. No cardiomegaly. Mediastinum: Unremarkable. Bones/joints: Sternotomy wires are noted in place. Upper abdomen: Elevation of the right hemidiaphragm. IMPRESSION: 1. Ovoid density posterior medially at the right lung base. 2. Presumed subsegmental atelectasis at the right lung base. 3. Elevation of the right hemidiaphragm. 4. CT imaging of the chest is advised to further assessment at the right lung base posteriorly medially.
[2023-06-26 03:59] LABS: Glucose,Whole Blood 130 mg/dL (70-110)
[2023-06-26] MEDS: LORazepam 2 MG/ML INJ IV PRN ×5 (04:24→22:00)
[2023-06-26] MEDS: D5-0.45% NACL WITH KCL 20MEQ/L 1,000 ML IV SCH (04:44)
[2023-06-26] MEDS: buPROPion SR 150 MG TABLET.ER PO SCH ×2 (04:45→15:11)
[2023-06-26 05:04] LABS: Glucose,Whole Blood 300 mg/dL (70-110)
[2023-06-26 06:01] LABS: HCT 26.7 % (39.0-53.0); MCHC 33.8 g/dL (31.0-37.0); MCV 91.6 fL (80.0-100.0); Platelet Count 158 k/uL (150-450); RBC 2.91 m/uL (4.30-5.90); RDW 13.2 % (11.5-15.5); WBC 7.9 k/uL (3.8-10.6)
[2023-06-26 06:25] LABS: Glucose,Whole Blood 337 mg/dL (70-110)
[2023-06-26 06:59] LABS: ALT 53 U/L (4-49); AST 47 U/L (17-59); African American GFR (CKD) 53 (>60 ml/min/1.73 sqM); Albumin 3.3 g/dL (3.5-5.0); Alkaline Phosphatase 94 U/L (38-126); Anion Gap 9 mmol/L; Blood Urea Nitrogen 71 mg/dL (9-20); Calcium 8.5 mg/dL (8.4-10.2); Carbon Dioxide 26 mmol/L (22-30); Chloride 113 mmol/L (98-107); Glucose 273 mg/dL (74-99); Non-African American GFR(CKD) 46 (>60 ml/min/1.73 sqM); Potassium 4.7 mmol/L (3.5-5.1); Sodium 148 mmol/L (137-145); Total Bilirubin 0.5 mg/dL (0.2-1.3); Total Protein 5.9 g/dL (6.3-8.2)
[2023-06-26 06:59] LABS: Glucose,Whole Blood 358 mg/dL (70-110)
[2023-06-26] MEDS: EZETIMIBE 10 MG TAB PO SCH (07:56)
[2023-06-26] MEDS: VENLAFAXINE HCL ER 150 MG CAP PO SCH ×2 (07:56→15:11)
[2023-06-26] MEDS ORDERED: PANTOPRAZOLE 40 MG TABLET PO SCH (08:00)
[2023-06-26 08:03] LABS: Glucose,Whole Blood 330 mg/dL (70-110)
[2023-06-26] MEDS ORDERED: THIAMINE 100 MG in SODIUM CHLORIDE 0.9% 50 ML IVPB SCH (09:00)
[2023-06-26] MEDS ORDERED: THIAMINE 100 MG TAB PO SCH (09:00)
[2023-06-26 09:03] LABS: Glucose,Whole Blood 327 mg/dL (70-110)
[2023-06-26] MEDS ORDERED: SODIUM CHLORIDE 0.9% 2,000 ML IV ONE (09:26)
[2023-06-26] MEDS ORDERED: SODIUM CHLORIDE 0.9% 1,000 ML IV SCH (09:30)
[2023-06-26] MEDS ORDERED: INSULIN REGULAR 100 UNIT in SODIUM CHLORIDE 0.9% 100 ML IV SCH (09:36)
[2023-06-26] MEDS: PANTOPRAZOLE 40 MG/10 ML VIAL IVP SCH (09:46)
[2023-06-26] MEDS: HEPARIN SODIUM,PORCINE 5,000 UNIT/ML 1 ML VIAL SQ SCH ×2 (09:46→21:01)
[2023-06-26] MEDS: THIAMINE 100 MG/ML 2 ML VIAL IVP SCH (09:46)
[2023-06-26] MEDS: SODIUM CHLORIDE 0.45% 1,000 ML IV SCH ×3 (09:46→23:38)
[2023-06-26 10:04] LABS: Glucose,Whole Blood 294 mg/dL (70-110)
--- NOTE | 2023-06-26 10:52 | US ---
EXAMINATION TYPE: US renals and bladder DATE OF EXAM: 06/26/2023 COMPARISON: NONE CLINICAL INDICATION: Male, 63 years old with history of guillermo; EXAM MEASUREMENTS: Right Kidney: 10.2 x 5.0 x 4.5 cm Left Kidney: unable to visualize Technical limitations, ICU patient, unable to rotate from supine position Right Kidney: Inferior pole obscured by bowel gas Left Kidney: Obscured by overlying bowel gas, unable to visualize Bladder: Becerril catheter No obvious hydronephrosis right kidney. No nephrolithiasis. IMPRESSION: No hydronephrosis or nephrolithiasis of the right kidney. Left kidney obscured by bowel gas.
--- NOTE | 2023-06-26 10:55 | US ---
EXAMINATION TYPE: US thyroid st tissue head/neck DATE OF EXAM: 06/26/2023 COMPARISON: NONE CLINICAL INDICATION: Male, 63 years old with history of thryoid mass; thyroid lesion visualized on re cent CT. Technical limitations, ICU patient GLAND SIZE: Right Lobe: 4.5 x 2.9 x 2.0 cm Overall Parenchyma: homogeneous Left Lobe: 3.3 x 1.4 x 1.9 cm - limited evaluation Overall Parenchyma: homogeneous NODULES RIGHT: # of nodules measured on right: 1 1. 2.2 X 2.5 x 2.0 cm, mid , mixed cystic and solid, hypoechoic nodule, which is taller than wide, with lobulated or irregular margins, with echogenic foci. Prior size: no prior LEFT: # of nodules measured on left: 0 ISTHMUS: # of nodules measured in the isthmus: 0 Bilateral neck scanned, no evidence of lymphadenopathy as visualized IMPRESSION: Complex predominantly cystic 2.5 cm right thyroid TR 5 nodule 2017 ACR TI-RADS LEVEL: TI-RADS 5 - Highly Suspicious: Follow if > 0.5 cm, FNA if > 1.0 cm *Highest TI-RADS level nodule reported
[2023-06-26 11:07] LABS: Glucose,Whole Blood 236 mg/dL (70-110)
--- NOTE | 2023-06-26 11:21 | P.PN ---
Subjective Progress Note Date: 06/26/23 Hospital Course: 63-year-old male with no well known past medical history presenting from outside hospital for hyperglycemia, altered mentation. On initial presentation, his WBC was 10.4, hemoglobin 9.5, anion gap 16, bicarb 24, BUN 85, creatinine 2.9, glucose 650, pH 7.358, pCO2 37, lactate 1.6, respiratory viral panel negative, troponin negative, acetone minimal, UA negative. EKG shows sinus rhythm. CT head showed no acute process. CT abdomen showed constipation and distended b ladder. CT neck showed right lobe thyroid mass. Per records, patient received 2 mg of IV Haldol, 0.5 mg of IV Ativan as well as was started on insulin drip. Per report, patient received 5 mg of IV Versed on the way from other hospital. In the ED at our facility, patient saturating 95% on 3 L, rest of the vitals signs were otherwise normal limits. Point of care glucose was 532. Labs at our facility showed WBC of 11.9, hemoglobin of 10.4, BUN 90, creatinine on 08, glucose of 495, mildly elevated ALT of 68, ALP 153. Patient being admitted for acute metabolic encephalopathy in the setting of HHS versus mild DKA. Patient continued to remain agitated requiring restraints. He was transferred to medical ICU. Subjective: Patient seen and examined at bedside. No acute events overnight. Continues to remain agitated Pertinent positives and negatives as discussed above, a complete review of systems was performed and all other systems are negative. Vitals Signs Reviewed. General: nontoxic, no distress, appears at stated age Derm: warm, dry Head: atraumatic, normocephalic, symmetric Eyes: EOMI, no lid lag, anicteric sclera Mouth: no lip lesion, mucus membranes moist Cardiovascular: S1S2 reg, no murmur Lungs: CTA bilateral, no rhonchi, no rales , no accessory muscle use, suppl emental oxygen Abdominal: soft, nontender to palpation, no guarding, no appreciable organomegaly Ext: no gross muscle atrophy, no edema, no contractures Neuro: CN II-XI grossly intact, no focal neuro deficits Psych: Agitated and noncooperative Data Reviewed Today: Pertinent Labs: WBC 7.9, hemoglobin 9, sodium 148, chloride 113, creatinine 1.57, BUN 71, blood sugars ranging between 121-358 Imaging: Chest x-ray independently interpreted, shows right hemidiaphragm Assessment and Plan: Patient is critically ill, in ICU, prognosis guarded. Acute metabolic encephalopathy with agitation Uncontrolled type 2 diabetes, A1c 13.6 HHS versus mild DKA Possible alcohol withdrawal Acute hypoxic respiratory failure Leukocytosis, resolved Normocytic anemia, unknown baseline Acute kidney injury, unknown baseline creatinine, resolving Hyponatremia Constipation Thyroid mass Urinary retention History of psychotic disorder History of depression Dyslipidemia -Patient currently on Ativan IV as needed per CIWA scores -Also on Precedex drip -Continue insulin drip, monitor for hypoglycemia -Currently requiring BiPAP -Pulmonology note reviewed, continue supportive care -Renal ultrasound pending -Blood cultures pending -Thyroid ultrasound pending -MiraLAX when patient is more awake -Patient has no active bleeding, repeat CBC tomorrow -He may need more free water given hypernatremia -Continue to monitor BMP DVT ppx: Subcu heparin Code status: Full code Anticipated discharge place: Pending clinical course Anticipated discharge time: Pending clinical course Objective - Vital Signs Vital signs: Vital Signs Temp 98.3 F 06/26/23 04:00 Pulse 55 L 06/26/23 07:00 Resp 19 06/26/23 07:00 BP 111/63 06/26/23 07:00 Pulse Ox 98 06/26/23 07:00 FiO2 60 06/26/23 07:00 Intake & Output 06/25/23 06/26/23 06/26/23 18:59 06:59 18:59 Intake Total 24.037 2737.260 155.456 Output Total 1130 100 Balance 24.037 1607.260 55.456 Weight 77.111 kg 85.1 kg Intake: IV 1600 150 D5-0.45% NaCl with KCl 1200 150 20Meq/l 1,000 ml @ 150 mls/hr IV .Q6H40M [facility] Rx# :[id number] Sodium Chloride 0.9% 1, 400 000 ml @ 200 mls/hr IV . Q5H [facility] Rx#:[id number] Intake, IV Titration 24.037 1137.260 5.456 Amount Dexmedetomidine/0.9% NaCl 45.401 (Pmx) 400 mcg In Empty Bag 1 bag @ 0.2 MCG/KG/HR 3.856 mls/hr IV .Q24H [facility] Rx#:[id number] Insulin Regular 100 unit 24.037 91.859 5.456 In Sodium Chloride 0.9% 100 ml @ 0.1 UNITS/KG/HR 7.788 mls/hr IV .[id number] [facility] Rx#:[id number] Sodium Chloride 0.9% 1, 1000 000 ml @ 999 mls/hr IV . Q1H1M [facility] Rx#:[id number] Output: Urine 1130 100 Other: Voiding Method Indwelling Catheter - Labs CBC & Chem 7: 06/26/23 05:28 06/26/23 05:28 Labs: Abnormal Lab Results - Last 24 Hours (Table) 06/25/23 06/25/23 06/25/23 Range/Units 14:17 14:23 14:23 WBC 11.9 H (3.8-10.6) k/uL RBC 3.28 L (4.30-5.90) m/uL Hgb 10.4 L (13.0-17.5) gm/dL Hct 29.0 L (39.0-53.0) % Neutrophils # 9.2 H (1.3-7.7) k/uL Monocytes # 1.1 H (0-1.0) k/uL Sodium (137-145) mmol/L Chloride (98-107) mmol/L BUN 90 H (9-20) mg/dL Creatinine 2.08 H (0.66-1.25) mg/dL Glucose 495 H (74-99) mg/dL POC Glucose (mg/dL) 532 H (70-110) mg/dL Hemoglobin A1c (<=6.0) % Phosphorus (2.5-4.5) mg/dL ALT 68 H (4-49) U/L Alkaline Phosphatase 153 H (38-126) U/L Total Protein (6.3-8.2) g/dL Albumin (3.5-5.0) g/dL Vitamin B12 (200.0-944.0) pg/mL Folate (4.40-31.00) ng/mL Urine Glucose (UA) (Negative) Urine Ketones (Negative) Urine Blood (Negative) Ur Leukocyte Esterase (Negative) Urine Mucus (None) /hpf 06/25/23 06/25/23 06/25/23 Range/Units 15:54 16:28 16:50 WBC (3.8-10.6) k/uL RBC (4.30-5.90) m/uL Hgb (13.0-17.5) gm/dL Hct (39.0-53.0) % Neutrophils # (1.3-7.7) k/uL Monocytes # (0-1.0) k/uL Sodium (137-145) mmol/L Chloride (98-107) mmol/L BUN 86 H (9-20) mg/dL Creatinine 2.09 H (0.66-1.25) mg/dL Glucose 519 H* (74-99) mg/dL POC Glucose (mg/dL) 569 H 556 H (70-110) mg/dL Hemoglobin A1c (<=6.0) % Phosphorus 5.1 H (2.5-4.5) mg/dL ALT (4-49) U/L Alkaline Phosphatase (38-126) U/L Total Protein (6.3-8.2) g/dL Albumin (3.5-5.0) g/dL Vitamin B12 (200.0-944.0) pg/mL Folate (4.40-31.00) ng/mL Urine Glucose (UA) (Negative) Urine Ketones (Negative) Urine Blood (Negative) Ur Leukocyte Esterase (Negative) Urine Mucus (None) /hpf 06/25/23 06/25/23 06/25/23 Range/Units 16:51 16:51 16:51 WBC (3.8-10.6) k/uL RBC (4.30-5.90) m/uL Hgb (13.0-17.5) gm/dL Hct (39.0-53.0) % Neutrophils # (1.3-7.7) k/uL Monocytes # (0-1.0) k/uL Sodium (137-145) mmol/L Chloride (98-107) mmol/L BUN (9-20) mg/dL Creatinine (0.66-1.25) mg/dL Glucose (74-99) mg/dL POC Glucose (mg/dL) (70-110) mg/dL Hemoglobin A1c 13.6 H (<=6.0) % Phosphorus (2.5-4.5) mg/dL ALT (4-49) U/L Alkaline Phosphatase (38-126) U/L Total Protein (6.3-8.2) g/dL Albumin (3.5-5.0) g/dL Vitamin B12 3369.0 H (200.0-944.0) pg/mL Folate 40.00 H (4.40-31.00) ng/mL Urine Glucose (UA) (Negative) Urine Ketones (Negative) Urine Blood (Negative) Ur Leukocyte Esterase (Negative) Urine Mucus (None) /hpf 06/25/23 06/25/23 06/25/23 Range/Units 17:45 17:50 18:42 WBC (3.8-10.6) k/uL RBC (4.30-5.90) m/uL Hgb (13.0-17.5) gm/dL Hct (39.0-53.0) % Neutrophils # (1.3-7.7) k/uL Monocytes # (0-1.0) k/uL Sodium (137-145) mmol/L Chloride (98-107) mmol/L BUN (9-20) mg/dL Creatinine (0.66-1.25) mg/dL Glucose (74-99) mg/dL POC Glucose (mg/dL) 527 H 503 H (70-110) mg/dL Hemoglobin A1c (<=6.0) % Phosphorus (2.5-4.5) mg/dL ALT (4-49) U/L Alkaline Phosphatase (38-126) U/L Total Protein (6.3-8.2) g/dL Albumin (3.5-5.0) g/dL Vitamin B12 (200.0-944.0) pg/mL Folate (4.40-31.00) ng/mL Urine Glucose (UA) 4+ H (Negative) Urine Ketones 1+ H (Negative) Urine Blood Moderate H (Negative) Ur Leukocyte Esterase Trace H (Negative) Urine Mucus Rare H (None) /hpf 06/25/23 06/25/23 06/25/23 Range/Units 18:50 19:57 21:26 WBC (3.8-10.6) k/uL RBC (4.30-5.90) m/uL Hgb (13.0-17.5) gm/dL Hct (39.0-53.0) % Neutrophils # (1.3-7.7) k/uL Monocytes # (0-1.0) k/uL Sodium 146 H (137-145) mmol/L Chloride (98-107) mmol/L BUN 84 H (9-20) mg/dL Creatinine 1.88 H (0.66-1.25) mg/dL Glucose 423 H (74-99) mg/dL POC Glucose (mg/dL) 472 H 295 H (70-110) mg/dL Hemoglobin A1c (<=6.0) % Phosphorus (2.5-4.5) mg/dL ALT (4-49) U/L Alkaline Phosphatase (38-126) U/L Total Protein (6.3-8.2) g/dL Albumin (3.5-5.0) g/dL Vitamin B12 (200.0-944.0) pg/mL Folate (4.40-31.00) ng/mL Urine Glucose (UA) (Negative) Urine Ketones (Negative) Urine Blood (Negative) Ur Leukocyte Esterase (Negative) Urine Mucus (None) /hpf 06/25/23 06/25/23 06/25/23 Range/Units 22:13 23:13 23:23 WBC (3.8-10.6) k/uL RBC (4.30-5.90) m/uL Hgb (13.0-17.5) gm/dL Hct (39.0-53.0) % Neutrophils # (1.3-7.7) k/uL Monocytes # (0-1.0) k/uL Sodium 150 H (137-145) mmol/L Chloride 112 H (98-107) mmol/L BUN 72 H (9-20) mg/dL Creatinine 1.76 H (0.66-1.25) mg/dL Glucose 166 H (74-99) mg/dL POC Glucose (mg/dL) 235 H 203 H (70-110) mg/dL Hemoglobin A1c (<=6.0) % Phosphorus (2.5-4.5) mg/dL ALT 58 H (4-49) U/L Alkaline Phosphatase (38-126) U/L Total Protein (6.3-8.2) g/dL Albumin (3.5-5.0) g/dL Vitamin B12 (200.0-944.0) pg/mL Folate (4.40-31.00) ng/mL Urine Glucose (UA) (Negative) Urine Ketones (Negative) Urine Blood (Negative) Ur Leukocyte Esterase (Negative) Urine Mucus (None) /hpf 06/26/23 06/26/23 06/26/23 Range/Units 00:14 01:23 01:59 WBC (3.8-10.6) k/uL RBC (4.30-5.90) m/uL Hgb (13.0-17.5) gm/dL Hct (39.0-53.0) % Neutrophils # (1.3-7.7) k/uL Monocytes # (0-1.0) k/uL Sodium (137-145) mmol/L Chloride (98-107) mmol/L BUN (9-20) mg/dL Creatinine (0.66-1.25) mg/dL Glucose (74-99) mg/dL POC Glucose (mg/dL) 164 H 148 H 120 H (70-110) mg/dL Hemoglobin A1c (<=6.0) % Phosphorus (2.5-4.5) mg/dL ALT (4-49) U/L Alkaline Phosphatase (38-126) U/L Total Protein (6.3-8.2) g/dL Albumin (3.5-5.0) g/dL Vitamin B12 (200.0-944.0) pg/mL Folate (4.40-31.00) ng/mL Urine Glucose (UA) (Negative) Urine Ketones (Negative) Urine Blood (Negative) Ur Leukocyte Esterase (Negative) Urine Mucus (None) /hpf 06/26/23 06/26/23 06/26/23 Range/Units 02:36 03:09 03:58 WBC (3.8-10.6) k/uL RBC (4.30-5.90) m/uL Hgb (13.0-17.5) gm/dL Hct (39.0-53.0) % Neutrophils # (1.3-7.7) k/uL Monocytes # (0-1.0) k/uL Sodium (137-145) mmol/L Chloride (98-107) mmol/L BUN (9-20) mg/dL Creatinine (0.66-1.25) mg/dL Glucose (74-99) mg/dL POC Glucose (mg/dL) 121 H 129 H 130 H (70-110) mg/dL Hemoglobin A1c (<=6.0) % Phosphorus (2.5-4.5) mg/dL ALT (4-49) U/L Alkaline Phosphatase (38-126) U/L Total Protein (6.3-8.2) g/dL Albumin (3.5-5.0) g/dL Vitamin B12 (200.0-944.0) pg/mL Folate (4.40-31.00) ng/mL Urine Glucose (UA) (Negative) Urine Ketones (Negative) Urine Blood (Negative) Ur Leukocyte Esterase (Negative) Urine Mucus (None) /hpf 06/26/23 06/26/23 06/26/23 Range/Units 05:03 05:28 05:28 WBC (3.8-10.6) k/uL RBC 2.91 L (4.30-5.90) m/uL Hgb 9.0 L (13.0-17.5) gm/dL Hct 26.7 L (39.0-53.0) % Neutrophils # (1.3-7.7) k/uL Monocytes # (0-1.0) k/uL Sodium 148 H (137-145) mmol/L Chloride 113 H (98-107) mmol/L BUN 71 H (9-20) mg/dL Creatinine 1.57 H (0.66-1.25) mg/dL Glucose 273 H (74-99) mg/dL POC Glucose (mg/dL) 300 H (70-110) mg/dL Hemoglobin A1c (<=6.0) % Phosphorus (2.5-4.5) mg/dL ALT 53 H (4-49) U/L Alkaline Phosphatase (38-126) U/L Total Protein 5.9 L (6.3-8.2) g/dL Albumin 3.3 L (3.5-5.0) g/dL Vitamin B12 (200.0-944.0) pg/mL Folate (4.40-31.00) ng/mL Urine Glucose (UA) (Negative) Urine Ketones (Negative) Urine Blood (Negative) Ur Leukocyte Esterase (Negative) Urine Mucus (None) /hpf 06/26/23 06/26/23 06/26/23 Range/Units 06:23 06:57 08:02 WBC (3.8-10.6) k/uL RBC (4.30-5.90) m/uL Hgb (13.0-17.5) gm/dL Hct (39.0-53.0) % Neutrophils # (1.3-7.7) k/uL Monocytes # (0-1.0) k/uL Sodium (137-145) mmol/L Chloride (98-107) mmol/L BUN (9-20) mg/dL Creatinine (0.66-1.25) mg/dL Glucose (74-99) mg/dL POC Glucose (mg/dL) 337 H 358 H 330 H (70-110) mg/dL Hemoglobin A1c (<=6.0) % Phosphorus (2.5-4.5) mg/dL ALT (4-49) U/L Alkaline Phosphatase (38-126) U/L Total Protein (6.3-8.2) g/dL Albumin (3.5-5.0) g/dL Vitamin B12 (200.0-944.0) pg/mL Folate (4.40-31.00) ng/mL Urine Glucose (UA) (Negative) Urine Ketones (Negative) Urine Blood (Negative) Ur Leukocyte Esterase (Negative) Urine Mucus (None) /hpf
[2023-06-26 12:21] LABS: Glucose,Whole Blood 190 mg/dL (70-110)
[2023-06-26 13:02] LABS: Glucose,Whole Blood 172 mg/dL (70-110)
[2023-06-26] MEDS ORDERED: LORazepam 2 MG/ML INJ IV STA ×3 (13:25→21:56)
[2023-06-26] MEDS ORDERED: OLANZapine 10 MG VIAL IM STA (13:25)
[2023-06-26 13:53] LABS: Glucose,Whole Blood 161 mg/dL (70-110)
[2023-06-26] MEDS ORDERED: FOLIC ACID PO SCH (15:00)
[2023-06-26] MEDS ORDERED: MECOBALAMIN PO SCH (15:00)
[2023-06-26] MEDS ORDERED: CYANOCOBALAMIN PO SCH (15:00)
[2023-06-26 15:03] LABS: Glucose,Whole Blood 196 mg/dL (70-110)
[2023-06-26] MEDS: ASPIRIN 81 MG PO SCH (15:11)
[2023-06-26 16:19] LABS: Glucose,Whole Blood 183 mg/dL (70-110)
[2023-06-26 17:01] LABS: Glucose,Whole Blood 161 mg/dL (70-110)
[2023-06-26 18:17] LABS: Glucose,Whole Blood 142 mg/dL (70-110)
[2023-06-26 19:13] LABS: Glucose,Whole Blood 134 mg/dL (70-110)
[2023-06-26 20:12] LABS: Glucose,Whole Blood 190 mg/dL (70-110)
[2023-06-26] MEDS: ATORVASTATIN 80 MG TAB PO SCH (21:01)
[2023-06-26] MEDS: QUEtiapine 100 MG TAB PO SCH (21:01)
[2023-06-26] MEDS: DIVALPROEX ER 500 MG TAB.ER.24H PO SCH (21:01)
[2023-06-26 21:08] LABS: Glucose,Whole Blood 203 mg/dL (70-110)
[2023-06-26 22:14] LABS: Glucose,Whole Blood 183 mg/dL (70-110)
[2023-06-26 23:04] LABS: Glucose,Whole Blood 158 mg/dL (70-110)
[2023-06-26 23:48] LABS: Glucose,Whole Blood 171 mg/dL (70-110)
[2023-06-27] MEDS: LORazepam 2 MG/ML INJ IV PRN ×10 (00:38→20:22)
[2023-06-27 01:35] LABS: Glucose,Whole Blood 170 mg/dL (70-110)
[2023-06-27 02:26] LABS: Glucose,Whole Blood 168 mg/dL (70-110)
[2023-06-27 03:09] LABS: Glucose,Whole Blood 156 mg/dL (70-110)
[2023-06-27 04:10] LABS: Glucose,Whole Blood 139 mg/dL (70-110)
[2023-06-27] MEDS: DEXMEDETOMIDINE/0.9% NACL(PMX) 400 MCG in EMPTY BAG 1 BAG IV SCH ×3 (05:47→21:27)
[2023-06-27 05:50] LABS: Glucose,Whole Blood 179 mg/dL (70-110)
[2023-06-27] MEDS: buPROPion SR 150 MG TABLET.ER PO SCH ×2 (06:50→13:49)
--- NOTE | 2023-06-27 07:17 | XR ---
EXAMINATION TYPE: XR chest 1V portable DATE OF EXAM: 06/27/2023 COMPARISON: 06/26/2023 HISTORY: Shortness of breath TECHNIQUE: Single frontal view of the chest is obtained. FINDINGS: Post median sternotomy. Limited inspiration. Right retrocardiac infiltrate stable. No pleu ral effusion or pneumothorax. No overt failure. Arthropathy of the right AC joint. Degenerative billings e spine. IMPRESSION: Stable right lower lobe infiltrate.
[2023-06-27] MEDS: INSULIN REGULAR 100 UNIT in SODIUM CHLORIDE 0.9% 100 ML IV SCH (07:49)
[2023-06-27 08:02] LABS: Glucose,Whole Blood 176 mg/dL (70-110)
--- NOTE | 2023-06-27 08:20 | P.PN ---
Subjective Progress Note Date: 06/27/23 I am seeing this patient in new consultation today 06/26/2023 in the intensive care unit after the patient was transferred from [facility] for altered mental status and high blood sugars. Patient is a 63-year-old white male whose past medical history is largely unknown. He is currently confused and obtunded, unable to answer questions. Apparently, patient presented to [facility] yesterday he was found to be combative and confused. His blood sugars were also found to be severely high at 808 g/dL. Serum CO2 was 20, anion gap 23. Ketones were mildly positive. Possible in mild DKA vs HHS. Patient did have an initial workup, including a brain CT which did not show any acute intracranial process. Urine drug screen also negative. EtOH level at our facility was less than 10. A CT of the chest done at the outside facility reported a mass within the superior mediastinum favoring to be from the right lobe of the thyroid. There were also postsurgical open-heart changes, and dependent atelectasis without acute infiltrates. Upon transfer, the patient became combative and agitated. He required restraints, multiple doses of Ativan, and a dose of Zyprexa. Patient was then admitted to the intensive care unit, and started on Precedex which is currently infusing at 0.12 mcg/kg per hour. He is fairly sedated on this dose, and it could be weaned down. He does not follow commands, briefly opens his eyes to painful stimuli. He is currently on 3 L nasal cannula. SpO2 was in reading at 98%. Insulin is currently infusing at 12.7 units per hour. Most recent BMP at our facility shows a sodium of 150, potassium 4, chloride 112, serum bicarb of 29, anion gap 9, BUN 72, creatinine 1.76, and blood glucose is down to 166. D5W/half-normal saline with 20 meq K is infusing at 150 ML's per hour. Patient's hemoglobin A1c is 13.6. LFTs are mildly elevated. TSH level was 1.24. CBC done in our facility shows a WBC count 11.9, hemoglobin 10.4, hematocrit 29, platelets 187. Urinalysis not significant for urinary tract infection. He is afebrile. Vital signs are stabl e. He will be monitored in the intensive care unit. On 06/27/2023, the patient is being seen for a follow-up. The patient was transferred to us for altered mental status and hyperglycemia related to hyperosmolar nonketotic state. The patient remains in the intensive care unit. The patient remains on a BiPAP at pressure 14/6 cm of water with an FiO2 of 40%. Overnight, he was quite restless and agitated. He remains on 2 point restraints. He was given a total of 5 mg of Ativan overnight. This morning, is quite comfortable and his synchronous with the BiPAP machine. He remains encephalopathic for now. Precedex is also running at 0.7 mcg/kg/h to control his agitation. CAT scan of the brain showed some chronic microvascular changes. The patient remains on IV fluids. He is currently on half-normal saline at the rate of 150 mL an hour. Is also on an insulin drip at 3 units an hour. Blood sugars under better control for now. In terms of his blood work, no new labs are available from today. Most recent labs are from yesterday and morning labs are still pending for now. His chest x-ray showed no acute abnormalities. Ultrasound the kidneys showed no evidence of any hydronephrosis. There was a concern of a neck/thyroid mass and for that reason, the patient was given an u ltrasound of the thyroid that showed a a 2.2 x 2.5 x 2.0 cm mixed cystic and solid nodule on the right. Hemodynamically stable. Cardiac rhythm is sinus. No other significant issues overnight. Objective - Vital Signs Vital signs: Vital Signs Temp 98 F 06/27/23 04:00 Pulse 58 L 06/27/23 07:00 Resp 18 06/27/23 07:00 BP 125/62 06/27/23 07:00 Pulse Ox 95 06/27/23 07:00 FiO2 40 06/27/23 07:51 Intake & Output 06/26/23 06/27/23 06/27/23 18:59 06:59 18:59 Intake Total 4187.193 2121.647 Output Total 1135 1905 Balance 3052.193 216.647 Weight 85.1 kg 87.8 kg Intake: IV 450 1800 0.45@150 1800 D5-0.45% NaCl with KCl 450 20Meq/l 1,000 ml @ 150 mls/hr IV .Q6H40M [facility] Rx# :[id number] Intake, IV Titration 3737.193 321.647 Amount Dexmedetomidine/0.9% NaCl 189.419 152.884 (Pmx) 400 mcg In Empty Bag 1 bag @ 0.2 MCG/KG/HR 3.856 mls/hr IV .Q24H [facility] Rx#:[id number] Insulin Regular 100 unit 47.774 18.763 In Sodium Chloride 0.9% 100 ml @ 0.0796 UNITS/KG/ HR 6.199 mls/hr IV . [id number] [facility] Rx#:[id number] Sodium Chloride 0.9% 1, 1500 150 000 ml @ 150 mls/hr IV . Q6H40M [facility] Rx#:[id number] Sodium Chloride 0.9% 2, 2000 000 ml @ 999 mls/hr IV . Q2H1M [facility] Rx#:[id number] Output: Urine 1135 1905 Other: Voiding Method Indwelling Catheter Indwelling Catheter Indwelling Catheter - Exam GENERAL EXAM: Obtunded, 63-year-old white male, sedated in no apparent distress. , The patient remains on a BiPAP at a pressure 14/6 with an FiO2 of 40% HEAD: Normocephalic and atraumatic EYES: Normal reaction of pupils, equal size. NOSE: Clear with pink turbinates. THROAT: No erythema or exudates. NECK: No masses, no JVD. CHEST: No chest wall deformity. LUNGS: Equal air entry with no crackles, wheeze, rhonchi or dullness. No conversational dyspnea or accessory muscle use.. CVS: S1 and S2 normal with no audible murmur, regular rhythm. No extra heart sounds ABDOMEN: No hepatosplenomegaly, active bowel sounds, no guarding or rigidity. SPINE: No scoliosis or deformity SKIN: No rashes CENTRAL NERVOUS SYSTEM: Patient is fairly sedated and obtunded. Depressed DTRs in all 4 extremities. No clonus. EXTREMITIES: Currently in bilateral upper extremities soft restraints. Neurovascular status of upper extremity is intact. There is no peripheral edema, clubbing, or cyanosis. Peripheral pulses are intact. - Labs CBC & Chem 7: 06/26/23 05:28 06/26/23 05:28 Labs: Abnormal Lab Results - Last 24 Hours (Table) 06/26/23 06/26/23 06/26/23 Range/Units 05:28 09:00 10:02 POC Glucose (mg/dL) 327 H 294 H (70-110) mg/dL Hemoglobin A1c 12.6 H (<=6.0) % 06/26/23 06/26/23 06/26/23 Range/Units 11:05 12:19 13:00 POC Glucose (mg/dL) 236 H 190 H 172 H (70-110) mg/dL Hemoglobin A1c (<=6.0) % 06/26/23 06/26/23 06/26/23 Range/Units 13:52 15:02 16:17 POC Glucose (mg/dL) 161 H 196 H 183 H (70-110) mg/dL Hemoglobin A1c (<=6.0) % 06/26/23 06/26/23 06/26/23 Range/Units 16:59 18:15 19:11 POC Glucose (mg/dL) 161 H 142 H 134 H (70-110) mg/dL Hemoglobin A1c (<=6.0) % 06/26/23 06/26/23 06/26/23 Range/Units 20:11 21:07 22:13 POC Glucose (mg/dL) 190 H 203 H 183 H (70-110) mg/dL Hemoglobin A1c (<=6.0) % 06/26/23 06/26/23 06/27/23 Range/Units 23:03 23:47 01:34 POC Glucose (mg/dL) 158 H 171 H 170 H (70-110) mg/dL Hemoglobin A1c (<=6.0) % 06/27/23 06/27/23 06/27/23 Range/Units 02:25 03:07 04:09 POC Glucose (mg/dL) 168 H 156 H 139 H (70-110) mg/dL Hemoglobin A1c (<=6.0) % 06/27/23 06/27/23 Range/Units 05:49 08:01 POC Glucose (mg/dL) 179 H 176 H (70-110) mg/dL Hemoglobin A1c (<=6.0) % Microbiology - Last 24 Hours (Table) 06/25/23 16:51 Blood Culture - Preliminary Blood Assessment and Plan Assessment: Acute Hyperglycemia, related to mild DHHS. The patient has been adequately resuscitated with IV fluids. Awaiting follow-up electrolytes from today. Remains on insulin drip at 3 units an hour and the patient is also on half- normal saline at the rate of 150 mL an hour. Blood sugars under better control Diabetes mellitus type 2, poorly controlled Altered mental status, likely related to toxic metabolic encephalopathy, secondary to above. CAT scan of the brain showed some chronic white matter changes. No CVA. No seizure activity. The patient is on Precedex and the patient is still requiring Ativan for agitation. No significant history of alcoholism. Nevertheless, the patient is an extensive psychiatric history. He is a previous alcoholic. Poorly controlled diabetes mellitus. The patient will maintain on insulin on outpatient basis and he has been taken Lantus 34 units at bedtime, NovoLog 15 units at lunch, 25 at breakfast and 28 at supper. 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 No evidence of any stridor. Ultrasound the thyroid showed a right thyroid nodule as discussed. Acute hypoxemic respiratory failure, currently on BiPAP at a pressure of 14/6 cm of water with FiO2 of 40% with a pulse ox of 94% acute kidney injury, no baseline creatinine available, improving and the patient is currently on IV fluids Hypernatremia History of uncontrolled insulin-dependent diabetes mellitus, hemoglobin A1c of 13.6 History of anxiety/depression/bipolar disorder, maintain on a combination of Seroquel, Effexor, Wellbutrin, and Depakote. Coronary artery disease with previous coronary artery bypass surgery Plan: Keep the patient on Precedex and titrate Avoid Ativan Continue BiPAP for respiratory support Continue half-normal saline at the rate of 150 mL an hour Continue insulin drip Awaiting labs from today Chest x-rays not showing any acute abnormalities is clear May need a neurology evaluation doesn't show adequate recovery in terms of his mental status We'll continue to follow Critical care evaluation, >30 min Time with Patient: Greater than 30
[2023-06-27 08:41] LABS: Basophils % (A) 0 %; Eosinophils # (A) 0.1 k/uL (0-0.7); Eosinophils % (A) 2 %; HCT 24.8 % (39.0-53.0); HGB 8.4 gm/dL (13.0-17.5); Lymphocytes # (A) 1.2 k/uL (1.0-4.8); Lymphocytes % (A) 28 %; MCH 31.5 pg (25.0-35.0); MCHC 33.9 g/dL (31.0-37.0); MCV 92.9 fL (80.0-100.0); Mean Platelet Volume 8.8; Monocytes # (A) 0.3 k/uL (0-1.0); Monocytes % (A) 8 %; Neutrophils # (A) 2.6 k/uL (1.3-7.7); Neutrophils % (A) 60 %; Platelet Count 118 k/uL (150-450); RBC 2.67 m/uL (4.30-5.90); RDW 13.3 % (11.5-15.5); WBC 4.4 k/uL (3.8-10.6)
[2023-06-27] MEDS: VENLAFAXINE HCL ER 150 MG CAP PO SCH ×2 (08:43→13:49)
[2023-06-27] MEDS: SODIUM CHLORIDE 0.45% 1,000 ML IV SCH ×3 (08:43→20:22)
[2023-06-27] MEDS: EZETIMIBE 10 MG TAB PO SCH (08:43)
[2023-06-27] MEDS: PANTOPRAZOLE 40 MG/10 ML VIAL IVP SCH (08:48)
[2023-06-27] MEDS: THIAMINE 100 MG/ML 2 ML VIAL IVP SCH (08:48)
[2023-06-27] MEDS: HEPARIN SODIUM,PORCINE 5,000 UNIT/ML 1 ML VIAL SQ SCH ×2 (08:48→20:22)
[2023-06-27 08:55] LABS: Glucose,Whole Blood 178 mg/dL (70-110)
[2023-06-27 08:56] LABS: African American GFR (CKD) >90 (>60 ml/min/1.73 sqM); Anion Gap 1 mmol/L; Blood Urea Nitrogen 27 mg/dL (9-20); Calcium 8.1 mg/dL (8.4-10.2); Carbon Dioxide 28 mmol/L (22-30); Chloride 117 mmol/L (98-107); Glucose 165 mg/dL (74-99); Non-African American GFR(CKD) >90 (>60 ml/min/1.73 sqM); Sodium 146 mmol/L (137-145)
--- NOTE | 2023-06-27 10:31 | P.PN ---
Subjective Progress Note Date: 06/27/23 Hospital Course: 63-year-old male with no well known past medical history presenting from outside hospital for hyperglycemia, altered mentation. On initial presentation, his WBC was 10.4, hemoglobin 9.5, anion gap 16, bicarb 24, BUN 85, creatinine 2.9, glucose 650, pH 7.358, pCO2 37, lactate 1.6, respiratory viral panel negative, troponin negative, acetone minimal, UA negative. EKG shows sinus rhythm. CT head showed no acute process. CT abdomen showed constipation and distended b ladder. CT neck showed right lobe thyroid mass. Per records, patient received 2 mg of IV Haldol, 0.5 mg of IV Ativan as well as was started on insulin drip. Per report, patient received 5 mg of IV Versed on the way from other hospital. In the ED at our facility, patient saturating 95% on 3 L, rest of the vitals signs were otherwise normal limits. Point of care glucose was 532. Labs at our facility showed WBC of 11.9, hemoglobin of 10.4, BUN 90, creatinine on 08, glucose of 495, mildly elevated ALT of 68, ALP 153. Patient being admitted for acute metabolic encephalopathy in the setting of HHS versus mild DKA. Patient continued to remain agitated requiring restraints. He was transferred to medical ICU. He remains agitated. Currently on Precedex drip. Also hypoxic requiring BiPAP. Subjective: Patient seen and examined at bedside. No acute events overnight. Continues to remain agitated, on BiPAP, Becreril catheter in place. Restraints in place. Pertinent positives and negatives as discussed above, a complete review of systems was performed and all other systems are negative. Vitals Signs Reviewed. General: nontoxic, no distress, appears at stated age, sedated, restrained Derm: warm, dry Head: atraumatic, normocephalic, symmetric Eyes: EOMI, no lid lag, anicteric sclera Mouth: no lip lesion, mucus membranes moist Cardiovascular: S1S2 reg, no murmur Lungs: CTA bilateral, no rhonchi, no rales , no accessory muscle use, supplemental oxygen on BiPAP Abdominal: soft, nontender to palpation, no guarding, no appreciable organomegaly Ext: no gross muscle atrophy, no edema, no contractures Neuro: CN II-XI grossly intact, no focal neuro deficits Psych: Noncooperative Data Reviewed Today: Pertinent Labs: WBC 4.4, hemoglobin 8.4, platelet 118, sodium 146, creatinine 0.88, glucose 165-179 Imaging: Chest x-ray independently interpreted, shows no clear opacities Assessment and Plan: Patient is critically ill, in ICU, prognosis guarded. Acute metabolic encephalopathy with agitation Uncontrolled type 2 diabetes, A1c 13.6 HHS versus mild DKA, resolving Possible alcohol withdrawal Acute hypoxic respiratory failure Leukocytosis, resolved Normocytic anemia, unknown baseline Acute kidney injury, unknown baseline creatinine, resolved Hyponatremia Constipation Thyroid mass Urinary retention History of psychotic disorder History of depression Dyslipidemia -Patient currently on Ativan IV as needed per CIWA scores, requiring a quite frequently -Also on Precedex drip, continue to wean -If no improvement, would recommend neurology or psychiatric -Continue insulin drip, monitor for hypoglycemia -On D5 half-normal saline at 1 50 mL an hour -Currently requiring BiPAP -Pulmonology note reviewed, continue supportive care -Blood cultures no growth to date -Thyroid ultrasound complex predominantly cystic 2.5 cm right thyroid T-R 5 nodule, highly suspicious for malignancy -MiraLAX when patient is more awake -Patient has no active bleeding, repeat CBC tomorrow -Continue to monitor BMP DVT ppx: Subcu heparin Code status: Full code Anticipated discharge place: Pending clinical course Anticipated discharge time: Pending clinical course Objective - Vital Signs Vital signs: Vital Signs Temp 98.3 F 06/27/23 08:00 Pulse 74 06/27/23 08:00 Resp 13 06/27/23 08:00 BP 144/60 06/27/23 08:00 Pulse Ox 98 06/27/23 08:00 FiO2 40 06/27/23 08:00 Intake & Output 06/26/23 06/27/23 06/27/23 18:59 06:59 18:59 Intake Total 4187.193 2121.647 353.107 Output Total 1135 1905 300 Balance 3052.193 216.647 53.107 Weight 85.1 kg 87.8 kg Intake: IV 450 1800 300 0.45@150 1800 300 D5-0.45% NaCl with KCl 450 20Meq/l 1,000 ml @ 150 mls/hr IV .Q6H40M [facility] Rx# :[id number] Intake, IV Titration 3737.193 321.647 53.107 Amount Dexmedetomidine/0.9% NaCl 189.419 152.884 50.507 (Pmx) 400 mcg In Empty Bag 1 bag @ 0.2 MCG/KG/HR 3.856 mls/hr IV .Q24H [facility] Rx#:[id number] Insulin Regular 100 unit 47.774 18.763 2.6 In Sodium Chloride 0.9% 100 ml @ 0.0796 UNITS/KG/ HR 6.199 mls/hr IV . [id number] [facility] Rx#:[id number] Sodium Chloride 0.9% 1, 1500 150 000 ml @ 150 mls/hr IV . Q6H40M [facility] Rx#:[id number] Sodium Chloride 0.9% 2, 2000 000 ml @ 999 mls/hr IV . Q2H1M [facility] Rx#:[id number] Output: Urine 1135 1905 300 Other: Voiding Method Indwelling Catheter Indwelling Catheter Indwelling Catheter - Labs CBC & Chem 7: 06/27/23 08:17 06/27/23 08:17 Labs: Abnormal Lab Results - Last 24 Hours (Table) 06/26/23 06/26/23 06/26/23 Range/Units 05:28 11:05 12:19 RBC (4.30-5.90) m/uL Hgb (13.0-17.5) gm/dL Hct (39.0-53.0) % Plt Count (150-450) k/uL Sodium (137-145) mmol/L Chloride (98-107) mmol/L BUN (9-20) mg/dL Glucose (74-99) mg/dL POC Glucose (mg/dL) 236 H 190 H (70-110) mg/dL Hemoglobin A1c 12.6 H (<=6.0) % Calcium (8.4-10.2) mg/dL 06/26/23 06/26/23 06/26/23 Range/Units 13:00 13:52 15:02 RBC (4.30-5.90) m/uL Hgb (13.0-17.5) gm/dL Hct (39.0-53.0) % Plt Count (150-450) k/uL Sodium (137-145) mmol/L Chloride (98-107) mmol/L BUN (9-20) mg/dL Glucose (74-99) mg/dL POC Glucose (mg/dL) 172 H 161 H 196 H (70-110) mg/dL Hemoglobin A1c (<=6.0) % Calcium (8.4-10.2) mg/dL 06/26/23 06/26/23 06/26/23 Range/Units 16:17 16:59 18:15 RBC (4.30-5.90) m/uL Hgb (13.0-17.5) gm/dL Hct (39.0-53.0) % Plt Count (150-450) k/uL Sodium (137-145) mmol/L Chloride (98-107) mmol/L BUN (9-20) mg/dL Glucose (74-99) mg/dL POC Glucose (mg/dL) 183 H 161 H 142 H (70-110) mg/dL Hemoglobin A1c (<=6.0) % Calcium (8.4-10.2) mg/dL 06/26/23 06/26/23 06/26/23 Range/Units 19:11 20:11 21:07 RBC (4.30-5.90) m/uL Hgb (13.0-17.5) gm/dL Hct (39.0-53.0) % Plt Count (150-450) k/uL Sodium (137-145) mmol/L Chloride (98-107) mmol/L BUN (9-20) mg/dL Glucose (74-99) mg/dL POC Glucose (mg/dL) 134 H 190 H 203 H (70-110) mg/dL Hemoglobin A1c (<=6.0) % Calcium (8.4-10.2) mg/dL 06/26/23 06/26/23 06/26/23 Range/Units 22:13 23:03 23:47 RBC (4.30-5.90) m/uL Hgb (13.0-17.5) gm/dL Hct (39.0-53.0) % Plt Count (150-450) k/uL Sodium (137-145) mmol/L Chloride (98-107) mmol/L BUN (9-20) mg/dL Glucose (74-99) mg/dL POC Glucose (mg/dL) 183 H 158 H 171 H (70-110) mg/dL Hemoglobin A1c (<=6.0) % Calcium (8.4-10.2) mg/dL 06/27/23 06/27/23 06/27/23 Range/Units 01:34 02:25 03:07 RBC (4.30-5.90) m/uL Hgb (13.0-17.5) gm/dL Hct (39.0-53.0) % Plt Count (150-450) k/uL Sodium (137-145) mmol/L Chloride (98-107) mmol/L BUN (9-20) mg/dL Glucose (74-99) mg/dL POC Glucose (mg/dL) 170 H 168 H 156 H (70-110) mg/dL Hemoglobin A1c (<=6.0) % Calcium (8.4-10.2) mg/dL 06/27/23 06/27/23 06/27/23 Range/Units 04:09 05:49 08:01 RBC (4.30-5.90) m/uL Hgb (13.0-17.5) gm/dL Hct (39.0-53.0) % Plt Count (150-450) k/uL Sodium (137-145) mmol/L Chloride (98-107) mmol/L BUN (9-20) mg/dL Glucose (74-99) mg/dL POC Glucose (mg/dL) 139 H 179 H 176 H (70-110) mg/dL Hemoglobin A1c (<=6.0) % Calcium (8.4-10.2) mg/dL 06/27/23 06/27/23 06/27/23 Range/Units 08:17 08:17 08:54 RBC 2.67 L (4.30-5.90) m/uL Hgb 8.4 L (13.0-17.5) gm/dL Hct 24.8 L (39.0-53.0) % Plt Count 118 L (150-450) k/uL Sodium 146 H (137-145) mmol/L Chloride 117 H (98-107) mmol/L BUN 27 H (9-20) mg/dL Glucose 165 H (74-99) mg/dL POC Glucose (mg/dL) 178 H (70-110) mg/dL Hemoglobin A1c (<=6.0) % Calcium 8.1 L (8.4-10.2) mg/dL Microbiology - Last 24 Hours (Table) 06/25/23 16:51 Blood Culture - Preliminary Blood
[2023-06-27 10:54] LABS: Glucose,Whole Blood 186 mg/dL (70-110)
[2023-06-27 12:01] LABS: Glucose,Whole Blood 174 mg/dL (70-110)
[2023-06-27] MEDS: ASPIRIN 81 MG PO SCH (13:49)
[2023-06-27 13:53] LABS: Glucose,Whole Blood 184 mg/dL (70-110)
[2023-06-27] MEDS ORDERED: DEXTROSE 50% SYRINGE 50 ML IVP PRN ×2 (15:22)
[2023-06-27] MEDS: INSULIN DETEMIR (LEVEMIR) 100 UNIT/ML SYR SQ SCH ×2 (16:38→20:22)
[2023-06-27 17:57] LABS: Glucose,Whole Blood 150 mg/dL (70-110)
[2023-06-27] MEDS: INSULIN ASPART (NovoLOG) 100 UNIT/ML VIAL SQ SCH (18:00)
[2023-06-27 20:11] LABS: Glucose,Whole Blood 187 mg/dL (70-110)
[2023-06-27] MEDS: QUEtiapine 100 MG TAB PO SCH (20:21)
[2023-06-27] MEDS: ATORVASTATIN 80 MG TAB PO SCH (20:21)
[2023-06-27] MEDS: DIVALPROEX ER 500 MG TAB.ER.24H PO SCH (20:21)
[2023-06-28 00:02] LABS: Glucose,Whole Blood 137 mg/dL (70-110)
[2023-06-28] MEDS: INSULIN ASPART (NovoLOG) 100 UNIT/ML VIAL SQ SCH ×5 (00:20→23:29)
[2023-06-28] MEDS: LORazepam 2 MG/ML INJ IV PRN ×4 (00:27→08:53)
[2023-06-28] MEDS: DEXMEDETOMIDINE/0.9% NACL(PMX) 400 MCG in EMPTY BAG 1 BAG IV SCH ×3 (05:48→22:46)
[2023-06-28] MEDS: SODIUM CHLORIDE 0.45% 1,000 ML IV SCH ×2 (05:48→10:15)
[2023-06-28 06:18] LABS: Glucose,Whole Blood 50 mg/dL (70-110)
[2023-06-28] MEDS: buPROPion SR 150 MG TABLET.ER PO SCH ×2 (06:36→14:08)
[2023-06-28] MEDS: INSULIN DETEMIR (LEVEMIR) 100 UNIT/ML SYR SQ SCH (06:36)
[2023-06-28 06:40] LABS: Glucose,Whole Blood 153 mg/dL (70-110)
[2023-06-28 07:38] LABS: Basophils % (A) 0 %; Eosinophils # (A) 0.1 k/uL (0-0.7); Eosinophils % (A) 2 %; HCT 23.8 % (39.0-53.0); HGB 8.4 gm/dL (13.0-17.5); Lymphocytes # (A) 1.1 k/uL (1.0-4.8); Lymphocytes % (A) 24 %; MCH 32.3 pg (25.0-35.0); MCHC 35.1 g/dL (31.0-37.0); MCV 91.9 fL (80.0-100.0); Mean Platelet Volume 8.4; Monocytes # (A) 0.3 k/uL (0-1.0); Monocytes % (A) 7 %; Neutrophils # (A) 2.7 k/uL (1.3-7.7); Neutrophils % (A) 62 %; Platelet Count 111 k/uL (150-450); RBC 2.59 m/uL (4.30-5.90); WBC 4.4 k/uL (3.8-10.6)
[2023-06-28 07:45] LABS: Potassium 3.5 mmol/L (3.5-5.1)
[2023-06-28 07:46] LABS: African American GFR (CKD) >90 (>60 ml/min/1.73 sqM); Anion Gap 5 mmol/L; Blood Urea Nitrogen 15 mg/dL (9-20); Calcium 8.3 mg/dL (8.4-10.2); Carbon Dioxide 24 mmol/L (22-30); Chloride 113 mmol/L (98-107); Glucose 115 mg/dL (74-99); Non-African American GFR(CKD) >90 (>60 ml/min/1.73 sqM); Sodium 142 mmol/L (137-145)
[2023-06-28] MEDS: HEPARIN SODIUM,PORCINE 5,000 UNIT/ML 1 ML VIAL SQ SCH ×2 (09:17→21:35)
[2023-06-28] MEDS: PANTOPRAZOLE 40 MG/10 ML VIAL IVP SCH (09:17)
[2023-06-28] MEDS: THIAMINE 100 MG/ML 2 ML VIAL IVP SCH (09:31)
[2023-06-28] MEDS ORDERED: HALOPERIDOL LACTATE 5 MG/ML 1 ML VIAL IVP PRN (09:45)
--- NOTE | 2023-06-28 09:46 | P.PN ---
Subjective Progress Note Date: 06/28/23 I am seeing this patient in new consultation today 06/26/2023 in the intensive care unit after the patient was transferred from [facility] for altered mental status and high blood sugars. Patient is a 63-year-old white male whose past medical history is largely unknown. He is currently confused and obtunded, unable to answer questions. Apparently, patient presented to [facility] yesterday he was found to be combative and confused. His blood sugars were also found to be severely high at 808 g/dL. Serum CO2 was 20, anion gap 23. Ketones were mildly positive. Possible in mild DKA vs HHS. Patient did have an initial workup, including a brain CT which did not show any acute intracranial process. Urine drug screen also negative. EtOH level at our facility was less than 10. A CT of the chest done at the outside facility reported a mass within the superior mediastinum favoring to be from the right lobe of the thyroid. There were also postsurgical open-heart changes, and dependent atelectasis without acute infiltrates. Upon transfer, the patient became combative and agitated. He required restraints, multiple doses of Ativan, and a dose of Zyprexa. Patient was then admitted to the intensive care unit, and started on Precedex which is currently infusing at 0.12 mcg/kg per hour. He is fairly sedated on this dose, and it could be weaned down. He does not follow commands, briefly opens his eyes to painful stimuli. He is currently on 3 L nasal cannula. SpO2 was in reading at 98%. Insulin is currently infusing at 12.7 units per hour. Most recent BMP at our facility shows a sodium of 150, potassium 4, chloride 112, serum bicarb of 29, anion gap 9, BUN 72, creatinine 1.76, and blood glucose is down to 166. D5W/half-normal saline with 20 meq K is infusing at 150 ML's per hour. Patient's hemoglobin A1c is 13.6. LFTs are mildly elevated. TSH level was 1.24. CBC done in our facility shows a WBC count 11.9, hemoglobin 10.4, hematocrit 29, platelets 187. Urinalysis not significant for urinary tract infection. He is afebrile. Vital signs are stabl e. He will be monitored in the intensive care unit. On 06/27/2023, the patient is being seen for a follow-up. The patient was transferred to us for altered mental status and hyperglycemia related to hyperosmolar nonketotic state. The patient remains in the intensive care unit. The patient remains on a BiPAP at pressure 14/6 cm of water with an FiO2 of 40%. Overnight, he was quite restless and agitated. He remains on 2 point restraints. He was given a total of 5 mg of Ativan overnight. This morning, is quite comfortable and his synchronous with the BiPAP machine. He remains encephalopathic for now. Precedex is also running at 0.7 mcg/kg/h to control his agitation. CAT scan of the brain showed some chronic microvascular changes. The patient remains on IV fluids. He is currently on half-normal saline at the rate of 150 mL an hour. Is also on an insulin drip at 3 units an hour. Blood sugars under better control for now. In terms of his blood work, no new labs are available from today. Most recent labs are from yesterday and morning labs are still pending for now. His chest x-ray showed no acute abnormalities. Ultrasound the kidneys showed no evidence of any hydronephrosis. There was a concern of a neck/thyroid mass and for that reason, the patient was given an u ltrasound of the thyroid that showed a a 2.2 x 2.5 x 2.0 cm mixed cystic and solid nodule on the right. Hemodynamically stable. Cardiac rhythm is sinus. No other significant issues overnight. On today's evaluation of 06/28/2023, the patient is restless and is thrashing in bed. Nevertheless, he seems to be more alert and awake compared to yesterday. His opening up his eyes and is trying to get out of bed. He has a sitter at the bedside. He remains on Precedex which is running at 0.9 microvascular kilogram per minutes. He was also given Ativan overnight and he was getting frequent doses. The patient is currently off BiPAP. He was taken off BiPAP yesterday midday and he was placed on nasal cannula at 2 L. No signs of any respiratory distress. No neck stiffness. No fever. No hemodynamic instability. No hypoxemia. He is hemodynamically stable. BUN is at 50 with a creatinine 0.8 and a sodium level is at 142 and the patient is on normal saline at rate of 75 mL an hour. I'll discuss 4.4 with a hemoglobin of 8.4. He remains nothing by mouth. Unable to take his oral medication as the patient is quite altered mentally and his swallow is not properly at this point in time. I think Objective - Vital Signs Vital signs: Vital Signs Temp 98.1 F 06/28/23 08:00 Pulse 71 06/28/23 09:00 Resp 9 L 06/28/23 09:00 BP 131/67 06/28/23 09:00 Pulse Ox 98 06/28/23 09:00 FiO2 40 06/27/23 11:39 Intake & Output 06/27/23 06/28/23 06/28/23 18:59 06:59 18:59 Intake Total 3286.823 0837.634 472.330 Output Total 1675 1645 340 Balance 82.328 354.634 132.330 Weight 87.4 kg Intake: IV 1650 1800 450 0.45@150 1650 1800 450 Intake, IV Titration 107.328 199.634 22.330 Amount Dexmedetomidine/0.9% NaCl 84.853 199.634 22.330 (Pmx) 400 mcg In Empty Bag 1 bag @ 0.2 MCG/KG/HR 3.856 mls/hr IV .Q24H [facility] Rx#:[id number] Insulin Regular 100 unit 22.475 In Sodium Chloride 0.9% 100 ml @ 0.0796 UNITS/KG/ HR 6.199 mls/hr IV . [id number] [facility] Rx#:[id number] Output: Urine 1675 1645 340 Other: Voiding Method Indwelling Catheter Indwelling Catheter # Bowel Movements 1 - Exam GENERAL EXAM: Obtunded, 63-year-old white male, sedated in no apparent distress., The patient remains on a 2liters NC HEAD: Normocephalic and atraumatic EYES: Normal reaction of pupils, equal size. NOSE: Clear with pink turbinates. THROAT: No erythema or exudates. NECK: No masses, no JVD. CHEST: No chest wall deformity. LUNGS: Equal air entry with no crackles, wheeze, rhonchi or dullness. No conversational dyspnea or accessory muscle use.. CVS: S1 and S2 normal with no audible murmur, regular rhythm. No extra heart sounds ABDOMEN: No hepatosplenomegaly, active bowel sounds, no guarding or rigidity. SPINE: No scoliosis or deformity SKIN: No rashes CENTRAL NERVOUS SYSTEM: Patient is fairly sedated and obtunded. Depressed DTRs in all 4 extremities. No clonus. EXTREMITIES: Currently in bilateral upper extremities soft restraints. Neurovascular status of upper extremity is intact. There is no peripheral edema, clubbing, or cyanosis. Peripheral pulses are intact. - Labs CBC & Chem 7: 06/28/23 07:09 06/28/23 07:09 Labs: Abnormal Lab Results - Last 24 Hours (Table) 06/27/23 06/27/23 06/27/23 Range/Units 10:52 12:00 13:51 RBC (4.30-5.90) m/uL Hgb (13.0-17.5) gm/dL Hct (39.0-53.0) % Plt Count (150-450) k/uL Chloride (98-107) mmol/L Glucose (74-99) mg/dL POC Glucose (mg/dL) 186 H 174 H 184 H (70-110) mg/dL Calcium (8.4-10.2) mg/dL 06/27/23 06/27/23 06/28/23 Range/Units 17:56 20:09 00:01 RBC (4.30-5.90) m/uL Hgb (13.0-17.5) gm/dL Hct (39.0-53.0) % Plt Count (150-450) k/uL Chloride (98-107) mmol/L Glucose (74-99) mg/dL POC Glucose (mg/dL) 150 H 187 H 137 H (70-110) mg/dL Calcium (8.4-10.2) mg/dL 06/28/23 06/28/23 06/28/23 Range/Units 06:16 06:38 07:09 RBC 2.59 L (4.30-5.90) m/uL Hgb 8.4 L (13.0-17.5) gm/dL Hct 23.8 L (39.0-53.0) % Plt Count 111 L (150-450) k/uL Chloride (98-107) mmol/L Glucose (74-99) mg/dL POC Glucose (mg/dL) 50 L 153 H (70-110) mg/dL Calcium (8.4-10.2) mg/dL 06/28/23 Range/Units 07:09 RBC (4.30-5.90) m/uL Hgb (13.0-17.5) gm/dL Hct (39.0-53.0) % Plt Count (150-450) k/uL Chloride 113 H (98-107) mmol/L Glucose 115 H (74-99) mg/dL POC Glucose (mg/dL) (70-110) mg/dL Calcium 8.3 L (8.4-10.2) mg/dL Microbiology - Last 24 Hours (Table) 06/25/23 16:51 Blood Culture - Preliminary Blood Assessment and Plan Assessment: Acute Hyperglycemia, related to mild DHHS. The patient is currently on Levemir insulin 14 units twice a day. He is obviously received an additional dose of Levemir yesterday which resulted into some morning hypoglycemia. He was treated accordingly with D50. Most recent blood sugar is at 115. We'll keep the Levemir will for now and cover him only with slight scale coverage. Diabetes mellitus type 2, poorly controlled Altered mental status, likely related to toxic metabolic encephalopathy, secondary to above. CAT scan of the brain showed some chronic white matter changes. No CVA. No seizure activity. The patient is on Precedex and the patient is still requiring Ativan for agitation. No significant history of alcoholism. Nevertheless, the patient is an extensive psychiatric history. He is a previous alcoholic. The patient obviously may have a component of delirium at this point in time. he signs of serotonergic syndrome. Unable to take his psychiatric medication as the patient is not awake enough to take oral medication. I'm going to discontinue that evening utilize Haldol instead. Poorly controlled diabetes mellitus. The patient will maintain on insulin on ou tpatient basis and he has been taken Lantus 34 units at bedtime, NovoLog 15 units at lunch, 25 at breakfast and 28 at supper. 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 No evidence of any stridor. Ultrasound the thyroid showed a right thyroid nodule as discussed. Acute hypoxemic respiratory failure, currently on BiPAP at a pressure of 14/6 cm of water with FiO2 of 40% with a pulse ox of 94% acute kidney injury, no baseline creatinine available, improving and the patient is currently on IV fluids Hypernatremia History of uncontrolled insulin-dependent diabetes mellitus, hemoglobin A1c of 13.6 History of anxiety/depression/bipolar disorder, maintain on a combination of Seroquel, Effexor, Wellbutrin, and Depakote. Coronary artery disease with previous coronary artery bypass surgery Plan: Keep the patient on Precedex and titrate Discontinue Ativan and use Haldol 1-2 mg every 2 hours to control his agitation. Avoid Ativan Continue oxygen 2 L/m nasal cannula and the patient is off the BiPAP Continue normal saline at rate of 75 Chest x-rays not showing any acute abnormalities is clear May need a neurology evaluation doesn't show adequate recovery in terms of his mental status sitter at the bedside We'll continue to follow Critical care evaluation, >30 min
[2023-06-28] MEDS: VENLAFAXINE HCL ER 150 MG CAP PO SCH ×2 (10:14→14:08)
[2023-06-28] MEDS: EZETIMIBE 10 MG TAB PO SCH (10:14)
[2023-06-28] MEDS: SODIUM CHLORIDE 0.9% 1,000 ML IV SCH ×2 (10:20→21:36)
[2023-06-28] MEDS ORDERED: HALOPERIDOL LACTATE 5 MG/ML 1 ML VIAL IVP STA (10:25)
--- NOTE | 2023-06-28 10:34 | EEG ---
DATE OF SERVICE: 06/28/2023 ELECTROENCEPHALOGRAM REPORT PREAMBLE: This is a 63-year-old male with altered mental status. CURRENT MEDICATIONS: 1. Aspirin. 2. Wellbutrin. 3. Depakote. 4. Zetia. 5. NovoLog. 6. Ativan. 7. Seroquel. 8. B1. 9. Effexor. EEG FINDINGS: This is a 21-channel digital EEG recorded with video component, utilizing 10/20 international system with referential and bipolar montages. Background consists of moderately well-developed, poorly regulated, mixed frequencies of moderate amplitude theta, with some delta activity seen in bihemispheric region. Background does not seem to be reactive to eye opening or closing. Photic stimulation was not performed. Hyperventilation was not done. Different stages of sleep were not seen. No focal or generalized epileptiform activity was seen. Frequent movement/myogenic artifacts were seen. IMPRESSION: This is an abnormal EEG due to background slowing of moderate degree. This is suggestive of generalized cerebral dysfunction as can be seen with toxic metabolic encephalopathy or related to diffuse structural brain abnormality. Clinical correlation is recommended. No epileptiform activity was seen. MMODL / IJN: [id number] / MTDD
[2023-06-28 10:56] LABS: Glucose,Whole Blood 97 mg/dL (70-110)
--- NOTE | 2023-06-28 11:08 | P.CNNES ---
History of Present Illness Consult date: 06/27/23 Requesting physician: Murtaza Vaughan Reason for Consult: Encephalopathy History of Present Illness: Patient is a 63-year-old male, who was brought to the hospital by ambulance to days ago on 06/25/2023 at 1:41 PM. for altered mental status. Patient not able to provide any history. Family members were not present. As per EMS flow sheet, patient was transferred from [facility] for transfer to [facility]. They mentioned that patient was brought to the [place] couple hours prior. His blood sugar was noted to be 808 mg/dL. His BUN was elevated 94.0 mg/dL. He was diagnosed with diabetic ketoacidosis and acute kidney injury. He was on insulin infusion at 12 mL per hour. He also has been combative, uncooperative. He has been given Haldol and Ativan over an hour ago and his combativeness improved. He was transferred for consultation with emt p regarding DKA and defense analyst for acute kidney injury. [facility] does not have those specialties available. He was on supplemental oxygen at 2 L per minute via nasal cannula. He was uncooperative during transfer. His vital signs at [facility] prior to arrival was 1:30/62, pulse rate 70, saturation 92% and blood sugar 524. His vitals has been stable, and patient is afebrile. His blood tests on arrival was WBC 11.90, WBC 10.4, platelets are normal. Electrolytes are normal, BUN 19, creatinine 2.08. AST normal, ALT 68, B12 3369, folate 40.0 and TSH is normal, UA is negative. Blood alcohol level negative. His most recent hemoglobin 8.4, sodium 146, BUN has improved 27, creatinine 0.88. Calcium 8.1. CT head performed 06/25/2023 in [facility] showed no acute process. Some small vessel disease. Mild atrophy, and slight prominence of the ventricles. Chest x-ray showed ovoid density posterior medially at the right lung base. Presumed subsegmental atelectasis at the right lung base. Elevation of the right hemidiaphragm. CT chest recommended. Patient has a thyroid node dual. According to the nursing report, patient is currently on Ativan, Precedex. He is on CIWA protocol. According to the nurse, he quit alcohol more than 1 year ago. The nurse mentioned that he is trying to get out of bed. He is pulling on IV, gets agitated. He is not answering questions. He is very encephalopathic. Initially he was following some commands. Review of Systems Patient's nurse does not know any more details, and family members not available. ROS unobtainable: due to mental status Past Medical History Past Medical History: Unable to Obtain Additional Past Medical History / Comment(s): neuropathy History of Any Multi-Drug Resistant Organisms: Unobtainable Past Surgical History: Unable to Obtain Additional Past Surgical History / Comment(s): 2009 CABG, hernia Past Anesthesia/Blood Transfusion Reactions: No Reported Reaction Past Psychological History: Unable to Obtain Smoking Status: Unknown if ever smoked - Past Family History Mother Family Medical History: Coronary Artery Disease (CAD), Diabetes Mellitus Medications and Allergies Home Medications Medication Instructions Recorded Confirmed Type Aspirin EC [Ecotrin Low Dose] 81 mg PO DAILY@1500 06/25/23 06/26/23 History Atorvastatin [Lipitor] 80 mg PO HS 06/25/23 06/26/23 History Cyanocobalamin/Mecobalamin/Folic 1 tab PO DAILY@1500 06/25/23 06/26/23 History Acid Divalproex ER [Depakote ER] 1,000 mg PO HS 06/25/23 06/26/23 History Ezetimibe [Zetia] 10 mg PO DAILY@0800 06/25/23 06/26/23 History Furosemide [Lasix] 80 mg PO DAILY@0800 06/25/23 06/26/23 History Insulin Aspart [NovoLOG Flexpen] 15 units SQ AC-LUNCH 06/25/23 06/26/23 History Insulin Aspart [NovoLOG Flexpen] 25 units SQ AC-BRKFST 06/25/23 06/26/23 History Insulin Aspart [NovoLOG Flexpen] 28 units SQ AC-SUPPER 06/25/23 06/26/23 History Insulin Aspart [NovoLOG Flexpen] See Protocol SQ AC-TID 06/25/23 06/26/23 History Insulin Glargine,Hum.rec.anlog 34 units SQ HS 06/25/23 06/26/23 History [Lantus Solostar Pen] Isosorbide Mononitrate ER [Imdur] 30 mg PO DAILY@0800 06/25/23 06/26/23 History Loratadine 10 mg PO DAILY@0800 06/25/23 06/26/23 History Meclizine [Antivert] 12.5 mg PO BID@0800,2100 06/25/23 06/26/23 History Meclizine [Antivert] 25 mg PO DAILY@1500 06/25/23 06/26/23 History Nitroglycerin Sl Tabs [Nitrostat] 0.4 mg SL Q5M PRN 06/25/23 06/25/23 History Omeprazole 40 mg PO DAILY@0800 06/25/23 06/26/23 History Propranolol HCl [Inderal] 80 mg PO HS 06/25/23 06/26/23 History Propranolol HCl [Inderal] 160 mg PO DAILY@0800 06/25/23 06/26/23 History QUEtiapine FUMARATE [SEROquel] 300 mg PO HS 06/25/23 06/26/23 History Venlafaxine HCl ER [Effexor Xr] 150 mg PO BID@0800,1500 06/25/23 06/26/23 History Vitamin E (Dl,Tocopheryl Acet) 400 unit PO BID@0800,1500 06/25/23 06/26/23 History [Vitamin E (400 Iu = 180 mg)] buPROPion SR [Wellbutrin SR] 150 mg PO BID@0700 06/25/23 06/26/23 History Melatonin [Melatonin ER] 10 mg PO HS 06/26/23 06/26/23 History Vitamin E (Dl,Tocopheryl Acet) 400 unit PO 0800,1500 06/26/23 06/26/23 History [Vitamin E (400 Iu = 180 mg)] Allergies Allergy/AdvReac Type Severity Reaction Status Date / Time latex Allergy Itching Verified 06/25/23 15:42 Penicillins Allergy Itching Verified 06/25/23 15:41 Physical Examination - Vital Signs Vital Signs: Vital Signs Temp Pulse Resp BP Pulse Ox FiO2 06/27/23 16:00 99.2 F 80 14 97/51 95 06/27/23 15:00 20 127/61 95 06/27/23 14:00 73 24 116/98 97 06/27/23 13:00 82 23 137/81 97 06/27/23 12:00 78 13 147/79 96 06/27/23 11:45 96 06/27/23 11:39 97 40 06/27/23 11:34 40 06/27/23 11:00 98.3 F 66 20 140/100 98 06/27/23 10:00 72 27 H 124/77 97 06/27/23 09:00 52 L 15 95 06/27/23 08:00 98.3 F 74 13 144/60 98 40 06/27/23 07:51 40 06/27/23 07:00 58 L 18 125/62 95 06/27/23 06:45 56 L 20 131/58 96 06/27/23 06:30 56 L 19 147/71 96 06/27/23 06:15 74 18 140/82 99 06/27/23 06:00 74 19 146/77 99 06/27/23 05:45 76 19 159/68 99 06/27/23 05:30 61 17 148/108 97 06/27/23 05:15 77 16 165/79 98 06/27/23 05:00 74 18 147/78 98 06/27/23 04:45 74 20 151/76 98 06/27/23 04:30 75 20 120/85 98 06/27/23 04:15 76 20 165/86 97 06/27/23 04:00 98 F 75 19 149/100 98 06/27/23 03:45 77 18 130/67 98 06/27/23 03:38 40 06/27/23 03:30 50 L 19 129/63 97 06/27/23 03:15 50 L 20 133/67 97 06/27/23 03:00 50 L 20 134/68 98 06/27/23 02:45 49 L 20 135/69 97 06/27/23 02:30 50 L 19 134/66 98 06/27/23 02:15 51 L 18 131/67 98 06/27/23 02:00 50 L 17 130/65 97 06/27/23 01:45 51 L 17 129/66 97 06/27/23 01:30 51 L 17 128/64 97 06/27/23 01:15 50 L 18 127/64 96 06/27/23 01:00 50 L 16 125/81 97 06/27/23 00:45 50 L 17 129/63 96 06/27/23 00:30 51 L 17 157/76 94 L 06/27/23 00:15 71 17 139/66 97 06/27/23 00:00 98.2 F 51 L 16 152/111 96 06/26/23 23:45 73 18 127/65 99 06/26/23 23:30 51 L 17 123/63 96 06/26/23 23:25 40 06/26/23 23:15 52 L 19 133/66 95 06/26/23 23:00 68 17 123/63 97 06/26/23 22:45 53 L 18 127/66 96 06/26/23 22:30 53 L 19 127/63 96 06/26/23 22:15 53 L 19 146/73 96 06/26/23 22:00 55 L 17 153/74 97 06/26/23 21:45 75 21 153/91 95 06/26/23 21:30 75 20 155/74 97 06/26/23 21:15 54 L 19 150/81 96 06/26/23 21:00 73 18 97/69 96 06/26/23 20:45 55 L 18 127/64 93 L 06/26/23 20:30 50 L 15 127/62 94 L 06/26/23 20:15 51 L 15 123/62 93 L 06/26/23 20:00 97.9 F 51 L 16 125/59 93 L 06/26/23 19:55 40 06/26/23 19:45 51 L 17 125/61 91 L 06/26/23 19:30 52 L 15 131/62 90 L 06/26/23 19:15 55 L 16 128/68 91 L 06/26/23 19:00 76 20 98 06/26/23 18:45 80 28 H 98 06/26/23 18:30 29 H 96 06/26/23 18:15 48 L 16 128/68 95 Intake and Output 06/27/23 06/27/23 06/27/23 06:59 14:59 22:59 Intake Total 3215.023 4930.453 319.875 Output Total 1375 1075 425 Balance 75.586 62.453 -105.125 Intake: IV 1350 1050 300 0.45@150 1350 1050 300 Intake, IV Titration 100.586 87.453 19.875 Amount Dexmedetomidine/0.9% NaCl 89.931 84.853 (Pmx) 400 mcg In Empty Bag 1 bag @ 0.2 MCG/KG/HR 3.856 mls/hr IV .Q24H [facility] Rx#:[id number] Insulin Regular 100 unit 10.655 2.6 19.875 In Sodium Chloride 0.9% 100 ml @ 0.0796 UNITS/KG/ HR 6.199 mls/hr IV . [id number] [facility] Rx#:[id number] Output: Urine 1375 1075 425 Other: Voiding Method Indwelling Catheter Indwelling Catheter Indwelling Catheter Weight 87.8 kg Patient is an elderly male, who is obviously encephalopathic, restless, frequently moving. He has a abdominal belt holding him down. He is currently on Precedex running at 0.7 mcg/kg/h to control his agitation. His hands are in mittens. Patient is restless, groggy. Patient did not speak any words, although with painful stimuli, he did vocalize 'Aaa" once. Speech and language functions cannot be assessed. Attention, concentration is severely impaired and fund of knowledge cannot be assessed. On cranial nerve examination, pupils are equal, round and reacting to light, visual palmer could not be tested. Extraocular muscles are intact. Oculocephalics are present. No obvious nystagmus in the primary gaze. Face is symmetric, did not protrude his tongue. Hearing and lower cranial nerves cannot be assessed. On muscle strength testing, patient very mildly grimaces to painful stimuli with the upper extremity and minimally moves the lower extremity with painful stimulus. Tone is normal in the arms and legs. His neck is supple. He does spontaneously moves all 4 extremities. Deep tendon reflexes are symmetric 1 at the biceps, 1 brachioradialis, 1+ at the knees, and plantars downgoing. Sensory and cerebellar functions cannot be tested. Gait cannot be tested. On general examination, there is no carotid bruit or murmur, S1-S2 audible. Chest is clear on consultation. Abdomen is soft nontender. No organomegaly, bowel sounds present. Peripheral pulses are present. No peripheral edema. Results - Laboratory Findings CBC and BMP: 06/28/23 07:09 06/28/23 07:09 Abnormal Lab Findings: Abnormal Labs 06/25/23 06/25/23 06/25/23 14:17 14:23 14:23 WBC 11.9 H RBC 3.28 L Hgb 10.4 L Hct 29.0 L Plt Count Neutrophils # 9.2 H Monocytes # 1.1 H Sodium Chloride BUN 90 H Creatinine 2.08 H Glucose 495 H POC Glucose (mg/dL) 532 H Hemoglobin A1c Calcium Phosphorus ALT 68 H Alkaline Phosphatase 153 H Total Protein Albumin Vitamin B12 Folate Urine Glucose (UA) Urine Ketones Urine Blood Ur Leukocyte Esterase Urine Mucus 06/25/23 06/25/23 06/25/23 15:54 16:28 16:50 WBC RBC Hgb Hct Plt Count Neutrophils # Monocytes # Sodium Chloride BUN 86 H Creatinine 2.09 H Glucose 519 H* POC Glucose (mg/dL) 569 H 556 H Hemoglobin A1c Calcium Phosphorus 5.1 H ALT Alkaline Phosphatase Total Protein Albumin Vitamin B12 Folate Urine Glucose (UA) Urine Ketones Urine Blood Ur Leukocyte Esterase Urine Mucus 06/25/23 06/25/23 06/25/23 16:51 16:51 16:51 WBC RBC Hgb Hct Plt Count Neutrophils # Monocytes # Sodium Chloride BUN Creatinine Glucose POC Glucose (mg/dL) Hemoglobin A1c 13.6 H Calcium Phosphorus ALT Alkaline Phosphatase Total Protein Albumin Vitamin B12 3369.0 H Folate 40.00 H Urine Glucose (UA) Urine Ketones Urine Blood Ur Leukocyte Esterase Urine Mucus 06/25/23 06/25/23 06/25/23 17:45 17:50 18:42 WBC RBC Hgb Hct Plt Count Neutrophils # Monocytes # Sodium Chloride BUN Creatinine Glucose POC Glucose (mg/dL) 527 H 503 H Hemoglobin A1c Calcium Phosphorus ALT Alkaline Phosphatase Total Protein Albumin Vitamin B12 Folate Urine Glucose (UA) 4+ H Urine Ketones 1+ H Urine Blood Moderate H Ur Leukocyte Esterase Trace H Urine Mucus Rare H 06/25/23 06/25/23 06/25/23 18:50 19:57 21:26 WBC RBC Hgb Hct Plt Count Neutrophils # Monocytes # Sodium 146 H Chloride BUN 84 H Creatinine 1.88 H Glucose 423 H POC Glucose (mg/dL) 472 H 295 H Hemoglobin A1c Calcium Phosphorus ALT Alkaline Phosphatase Total Protein Albumin Vitamin B12 Folate Urine Glucose (UA) Urine Ketones Urine Blood Ur Leukocyte Esterase Urine Mucus 06/25/23 06/25/23 06/25/23 22:13 23:13 23:23 WBC RBC Hgb Hct Plt Count Neutrophils # Monocytes # Sodium 150 H Chloride 112 H BUN 72 H Creatinine 1.76 H Glucose 166 H POC Glucose (mg/dL) 235 H 203 H Hemoglobin A1c Calcium Phosphorus ALT 58 H Alkaline Phosphatase Total Protein Albumin Vitamin B12 Folate Urine Glucose (UA) Urine Ketones Urine Blood Ur Leukocyte Esterase Urine Mucus 06/26/23 06/26/23 06/26/23 00:14 01:23 01:59 WBC RBC Hgb Hct Plt Count Neutrophils # Monocytes # Sodium Chloride BUN Creatinine Glucose POC Glucose (mg/dL) 164 H 148 H 120 H Hemoglobin A1c Calcium Phosphorus ALT Alkaline Phosphatase Total Protein Albumin Vitamin B12 Folate Urine Glucose (UA) Urine Ketones Urine Blood Ur Leukocyte Esterase Urine Mucus 06/26/23 06/26/23 06/26/23 02:36 03:09 03:58 WBC RBC Hgb Hct Plt Count Neutrophils # Monocytes # Sodium Chloride BUN Creatinine Glucose POC Glucose (mg/dL) 121 H 129 H 130 H Hemoglobin A1c Calcium Phosphorus ALT Alkaline Phosphatase Total Protein Albumin Vitamin B12 Folate Urine Glucose (UA) Urine Ketones Urine Blood Ur Leukocyte Esterase Urine Mucus 06/26/23 06/26/23 06/26/23 05:03 05:28 05:28 WBC RBC 2.91 L Hgb 9.0 L Hct 26.7 L Plt Count Neutrophils # Monocytes # Sodium 148 H Chloride 113 H BUN 71 H Creatinine 1.57 H Glucose 273 H POC Glucose (mg/dL) 300 H Hemoglobin A1c Calcium Phosphorus ALT 53 H Alkaline Phosphatase Total Protein 5.9 L Albumin 3.3 L Vitamin B12 Folate Urine Glucose (UA) Urine Ketones Urine Blood Ur Leukocyte Esterase Urine Mucus 06/26/23 06/26/23 06/26/23 05:28 06:23 06:57 WBC RBC Hgb Hct Plt Count Neutrophils # Monocytes # Sodium Chloride BUN Creatinine Glucose POC Glucose (mg/dL) 337 H 358 H Hemoglobin A1c 12.6 H Calcium Phosphorus ALT Alkaline Phosphatase Total Protein Albumin Vitamin B12 Folate Urine Glucose (UA) Urine Ketones Urine Blood Ur Leukocyte Esterase Urine Mucus 06/26/23 06/26/23 06/26/23 08:02 09:00 10:02 WBC RBC Hgb Hct Plt Count Neutrophils # Monocytes # Sodium Chloride BUN Creatinine Glucose POC Glucose (mg/dL) 330 H 327 H 294 H Hemoglobin A1c Calcium Phosphorus ALT Alkaline Phosphatase Total Protein Albumin Vitamin B12 Folate Urine Glucose (UA) Urine Ketones Urine Blood Ur Leukocyte Esterase Urine Mucus 06/26/23 06/26/23 06/26/23 11:05 12:19 13:00 WBC RBC Hgb Hct Plt Count Neutrophils # Monocytes # Sodium Chloride BUN Creatinine Glucose POC Glucose (mg/dL) 236 H 190 H 172 H Hemoglobin A1c Calcium Phosphorus ALT Alkaline Phosphatase Total Protein Albumin Vitamin B12 Folate Urine Glucose (UA) Urine Ketones Urine Blood Ur Leukocyte Esterase Urine Mucus 06/26/23 06/26/23 06/26/23 13:52 15:02 16:17 WBC RBC Hgb Hct Plt Count Neutrophils # Monocytes # Sodium Chloride BUN Creatinine Glucose POC Glucose (mg/dL) 161 H 196 H 183 H Hemoglobin A1c Calcium Phosphorus ALT Alkaline Phosphatase Total Protein Albumin Vitamin B12 Folate Urine Glucose (UA) Urine Ketones Urine Blood Ur Leukocyte Esterase Urine Mucus 06/26/23 06/26/23 06/26/23 16:59 18:15 19:11 WBC RBC Hgb Hct Plt Count Neutrophils # Monocytes # Sodium Chloride BUN Creatinine Glucose POC Glucose (mg/dL) 161 H 142 H 134 H Hemoglobin A1c Calcium Phosphorus ALT Alkaline Phosphatase Total Protein Albumin Vitamin B12 Folate Urine Glucose (UA) Urine Ketones Urine Blood Ur Leukocyte Esterase Urine Mucus 06/26/23 06/26/23 06/26/23 20:11 21:07 22:13 WBC RBC Hgb Hct Plt Count Neutrophils # Monocytes # Sodium Chloride BUN Creatinine Glucose POC Glucose (mg/dL) 190 H 203 H 183 H Hemoglobin A1c Calcium Phosphorus ALT Alkaline Phosphatase Total Protein Albumin Vitamin B12 Folate Urine Glucose (UA) Urine Ketones Urine Blood Ur Leukocyte Esterase Urine Mucus 06/26/23 06/26/23 06/27/23 23:03 23:47 01:34 WBC RBC Hgb Hct Plt Count Neutrophils # Monocytes # Sodium Chloride BUN Creatinine Glucose POC Glucose (mg/dL) 158 H 171 H 170 H Hemoglobin A1c Calcium Phosphorus ALT Alkaline Phosphatase Total Protein Albumin Vitamin B12 Folate Urine Glucose (UA) Urine Ketones Urine Blood Ur Leukocyte Esterase Urine Mucus 06/27/23 06/27/23 06/27/23 02:25 03:07 04:09 WBC RBC Hgb Hct Plt Count Neutrophils # Monocytes # Sodium Chloride BUN Creatinine Glucose POC Glucose (mg/dL) 168 H 156 H 139 H Hemoglobin A1c Calcium Phosphorus ALT Alkaline Phosphatase Total Protein Albumin Vitamin B12 Folate Urine Glucose (UA) Urine Ketones Urine Blood Ur Leukocyte Esterase Urine Mucus 06/27/23 06/27/23 06/27/23 05:49 08:01 08:17 WBC RBC 2.67 L Hgb 8.4 L Hct 24.8 L Plt Count 118 L Neutrophils # Monocytes # Sodium Chloride BUN Creatinine Glucose POC Glucose (mg/dL) 179 H 176 H Hemoglobin A1c Calcium Phosphorus ALT Alkaline Phosphatase Total Protein Albumin Vitamin B12 Folate Urine Glucose (UA) Urine Ketones Urine Blood Ur Leukocyte Esterase Urine Mucus 06/27/23 06/27/23 06/27/23 08:17 08:54 10:52 WBC RBC Hgb Hct Plt Count Neutrophils # Monocytes # Sodium 146 H Chloride 117 H BUN 27 H Creatinine Glucose 165 H POC Glucose (mg/dL) 178 H 186 H Hemoglobin A1c Calcium 8.1 L Phosphorus ALT Alkaline Phosphatase Total Protein Albumin Vitamin B12 Folate Urine Glucose (UA) Urine Ketones Urine Blood Ur Leukocyte Esterase Urine Mucus 06/27/23 06/27/23 06/27/23 12:00 13:51 17:56 WBC RBC Hgb Hct Plt Count Neutrophils # Monocytes # Sodium Chloride BUN Creatinine Glucose POC Glucose (mg/dL) 174 H 184 H 150 H Hemoglobin A1c Calcium Phosphorus ALT Alkaline Phosphatase Total Protein Albumin Vitamin B12 Folate Urine Glucose (UA) Urine Ketones Urine Blood Ur Leukocyte Esterase Urine Mucus Assessment and Plan Assessment: * Altered mental status, likely due to toxic metabolic encephalopathy * Diabetic HHS versus mild DKA, improving. 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 * Acute kidney injury, now resolved * Hyponatremia * History of psychiatric disorder, on Seroquel, Effexor, Wellbutrin and Depakote. * CAD with history of bypass surgery * Previous history of alcoholism Plan: * Patient is clearly encephalopathic, delirious, very restless. Patient's examination is nonfocal. CT head showed no acute process. * We will check EEG to evaluate for encephalopathy, rule out any epileptiform activity. * Management of other medical conditions as per IM/critical care. * Neurology will follow clinically. * We will also try to obtain collateral history from family member. * Thank you for the consult.
--- NOTE | 2023-06-28 12:09 | P.PN ---
Subjective Progress Note Date: 06/28/23 Hospital Course: 63-year-old male with no well known past medical history presenting from outside hospital for hyperglycemia, altered mentation. On initial presentation, his WBC was 10.4, hemoglobin 9.5, anion gap 16, bicarb 24, BUN 85, creatinine 2.9, glucose 650, pH 7.358, pCO2 37, lactate 1.6, respiratory viral panel negative, troponin negative, acetone minimal, UA negative. EKG shows sinus rhythm. CT head showed no acute process. CT abdomen showed constipation and distended bladder. CT neck showed right lobe thyroid mass. Per records, patient received 2 mg of IV Haldol, 0.5 mg of IV Ativan as well as was started on insulin drip. Per report, patient received 5 mg of IV Versed on the way from other hospital. In the ED at our facility, patient saturating 95% on 3 L, rest of the vitals signs were otherwise normal limits. Point of care glucose was 532. Labs at our facility showed WBC of 11.9, hemoglobin of 10.4, BUN 90, creatinine on 08, glucose of 495, mildly elevated ALT of 68, ALP 153. Patient being admitted for acute metabolic encephalopathy in the setting of HHS versus mild DKA. Patient continued to remain agitated requiring restraints. He was transferred to medical ICU. He remains agitated. Currently on Precedex drip. Subjective: Patient seen and examined at bedside. No acute events overnight. Restraints in place. Sitter at bedside. Pertinent positives and negatives as discussed above, a complete review of systems was performed and all other systems are negative. Vitals Signs Reviewed. General: nontoxic, no distress, appears at stated age, restrained, climbing out of bed Derm: warm, dry Head: atraumatic, normocephalic, symmetric Eyes: EOMI, no lid lag, anicteric sclera Mouth: no lip lesion, mucus membranes moist Cardiovascular: S1S2 reg, no murmur Lungs: CTA bilateral, no rhonchi, no rales , no accessory muscle use, supplem ental oxygen Abdominal: soft, nontender to palpation, no guarding, no appreciable organomegaly Ext: no gross muscle atrophy, no edema, no contractures Neuro: CN II-XI grossly intact, no focal neuro deficits Psych: Noncooperative Data Reviewed Today: Pertinent Labs: WBC 4.4, hemoglobin 8.4, platelets 111, potassium 3.5, creatinine 0.84, blood sugars range between 97-153 Imaging: EEG report reviewed, shows generalized cerebral dysfunction, no epileptiform activity Assessment and Plan: Patient is critically ill, in ICU, prognosis guarded. Acute metabolic encephalopathy with agitation History of psychosis Uncontrolled type 2 diabetes, A1c 13.6 HHS versus mild DKA, resolved Acute hypoxic respiratory failure, resolving Leukocytosis, resolved Normocytic anemia, unknown baseline, currently stable Acute kidney injury, unknown baseline creatinine, resolved Hyponatremia, resolved Constipation, resolved Thyroid mass Urinary retention, status post Becerril catheter Dyslipidemia -Pulmonology note reviewed, abdomen discontinued, started on Haldol 1 mg IV push every hour as needed -Also on Precedex drip, continue to wean -Neurology following, EEG does not show any Epileptiform activity -Psychiatry consulted -Insulin drip discontinued, patient started on insulin aspart every 6 hours per sliding scale, monitor for hypoglycemia -On normal saline 75 mL an hour -Blood cultures no growth to date -Thyroid ultrasound complex predominantly cystic 2.5 cm right thyroid T-R 5 nodule, highly suspicious for malignancy, will likely need further workup once patient is more stable -Patient has no active bleeding, repeat CBC tomorrow -Continue to monitor BMP DVT ppx: Subcu heparin Code status: Full code Anticipated discharge place: Pending clinical course Anticipated discharge time: Pending clinical course Objective - Vital Signs Vital signs: Vital Signs Temp 98.1 F 06/28/23 08:00 Pulse 69 06/28/23 11:00 Resp 14 06/28/23 11:00 BP 130/92 06/28/23 11:00 Pulse Ox 96 06/28/23 11:00 FiO2 40 06/27/23 11:39 Intake & Output 06/27/23 06/28/23 06/28/23 18:59 06:59 18:59 Intake Total 5936.102 5534.634 669.013 Output Total 1675 1645 525 Balance 82.328 354.634 144.013 Weight 87.4 kg Intake: IV 1650 1800 600 0.45@150 1650 1800 600 Intake, IV Titration 107.328 199.634 69.013 Amount Dexmedetomidine/0.9% NaCl 84.853 199.634 69.013 (Pmx) 400 mcg In Empty Bag 1 bag @ 0.2 MCG/KG/HR 3.856 mls/hr IV .Q24H [facility] Rx#:[id number] Insulin Regular 100 unit 22.475 In Sodium Chloride 0.9% 100 ml @ 0.0796 UNITS/KG/ HR 6.199 mls/hr IV . [id number] [facility] Rx#:[id number] Output: Urine 1675 1645 525 Other: Voiding Method Indwelling Catheter Indwelling Catheter Indwelling Catheter # Bowel Movements 1 - Labs CBC & Chem 7: 06/28/23 07:09 06/28/23 07:09 Labs: Abnormal Lab Results - Last 24 Hours (Table) 06/27/23 06/27/23 06/27/23 Range/Units 13:51 17:56 20:09 RBC (4.30-5.90) m/uL Hgb (13.0-17.5) gm/dL Hct (39.0-53.0) % Plt Count (150-450) k/uL Chloride (98-107) mmol/L Glucose (74-99) mg/dL POC Glucose (mg/dL) 184 H 150 H 187 H (70-110) mg/dL Calcium (8.4-10.2) mg/dL 06/28/23 06/28/23 06/28/23 Range/Units 00:01 06:16 06:38 RBC (4.30-5.90) m/uL Hgb (13.0-17.5) gm/dL Hct (39.0-53.0) % Plt Count (150-450) k/uL Chloride (98-107) mmol/L Glucose (74-99) mg/dL POC Glucose (mg/dL) 137 H 50 L 153 H (70-110) mg/dL Calcium (8.4-10.2) mg/dL 06/28/23 06/28/23 Range/Units 07:09 07:09 RBC 2.59 L (4.30-5.90) m/uL Hgb 8.4 L (13.0-17.5) gm/dL Hct 23.8 L (39.0-53.0) % Plt Count 111 L (150-450) k/uL Chloride 113 H (98-107) mmol/L Glucose 115 H (74-99) mg/dL POC Glucose (mg/dL) (70-110) mg/dL Calcium 8.3 L (8.4-10.2) mg/dL Microbiology - Last 24 Hours (Table) 06/25/23 16:51 Blood Culture - Preliminary Blood
[2023-06-28] MEDS: HALOPERIDOL LACTATE 5 MG/ML 1 ML VIAL IVP PRN ×3 (12:56→23:31)
[2023-06-28] MEDS: ASPIRIN 81 MG PO SCH (14:08)
[2023-06-28 16:41] LABS: Glucose,Whole Blood 178 mg/dL (70-110)
[2023-06-28] MEDS ORDERED: ZINC OXIDE PASTE (Z-GUARD) 1 APPLIC APPLIC TOPICAL PRN (17:12)
[2023-06-28] MEDS: ATORVASTATIN 80 MG TAB PO SCH (21:35)
[2023-06-28] MEDS: DIVALPROEX ER 500 MG TAB.ER.24H PO SCH (21:35)
[2023-06-28 23:19] LABS: Glucose,Whole Blood 289 mg/dL (70-110)
[2023-06-29] MEDS: HALOPERIDOL LACTATE 5 MG/ML 1 ML VIAL IVP PRN ×3 (02:04→06:09)
[2023-06-29 04:54] LABS: HCT 24.4 % (39.0-53.0); HGB 8.2 gm/dL (13.0-17.5); MCH 31.5 pg (25.0-35.0); MCHC 33.5 g/dL (31.0-37.0); Mean Platelet Volume 9.7; Platelet Count 92 k/uL (150-450); RDW 13.2 % (11.5-15.5); WBC 4.8 k/uL (3.8-10.6)
[2023-06-29 05:16] LABS: African American GFR (CKD) >90 (>60 ml/min/1.73 sqM); Anion Gap 12 mmol/L; Blood Urea Nitrogen 16 mg/dL (9-20); Calcium 8.3 mg/dL (8.4-10.2); Carbon Dioxide 17 mmol/L (22-30); Chloride 115 mmol/L (98-107); Glucose 215 mg/dL (74-99); Non-African American GFR(CKD) 78 (>60 ml/min/1.73 sqM); Potassium 4.1 mmol/L (3.5-5.1); Sodium 144 mmol/L (137-145)
[2023-06-29 05:22] LABS: Glucose,Whole Blood 261 mg/dL (70-110)
[2023-06-29] MEDS: DEXMEDETOMIDINE/0.9% NACL(PMX) 400 MCG in EMPTY BAG 1 BAG IV SCH ×2 (05:34→22:59)
[2023-06-29 05:59] LABS: Lymphocytes # (M) 0.91 k/uL (1.0-4.8); Monocytes # (M) 0.38 k/uL (0-1.0); Neutrophils # (M) 3.41 k/uL (1.3-7.7); Neutrophils % (M) 71 %; Nucleated Red Blood Cells 0 /100 WBC (0-0); Total Cells Counted 100
[2023-06-29] MEDS: buPROPion SR 150 MG TABLET.ER PO SCH (06:09)
[2023-06-29] MEDS: INSULIN ASPART (NovoLOG) 100 UNIT/ML VIAL SQ SCH ×3 (06:09→19:04)
[2023-06-29] MEDS: THIAMINE 100 MG/ML 2 ML VIAL IVP SCH (08:43)
[2023-06-29] MEDS: HEPARIN SODIUM,PORCINE 5,000 UNIT/ML 1 ML VIAL SQ SCH (08:45)
[2023-06-29] MEDS: PANTOPRAZOLE 40 MG/10 ML VIAL IVP SCH (08:45)
--- NOTE | 2023-06-29 09:23 | P.PN ---
Subjective Progress Note Date: 06/29/23 I am seeing this patient in new consultation today 06/26/2023 in the intensive care unit after the patient was transferred from [facility] for altered mental status and high blood sugars. Patient is a 63-year-old white male whose past medical history is largely unknown. He is currently confused and obtunded, unable to answer questions. Apparently, patient presented to [facility] yesterday he was found to be combative and confused. His blood sugars were also found to be severely high at 808 g/dL. Serum CO2 was 20, anion gap 23. Ketones were mildly positive. Possible in mild DKA vs HHS. Patient did have an initial workup, including a brain CT which did not show any acute intracranial process. Urine drug screen also negative. EtOH level at our facility was less than 10. A CT of the chest done at the outside facility reported a mass within the superior mediastinum favoring to be from the right lobe of the thyroid. There were also postsurgical open-heart changes, and dependent atelectasis without acute infiltrates. Upon transfer, the patient became combative and agitated. He required restraints, multiple doses of Ativan, and a dose of Zyprexa. Patient was then admitted to the intensive care unit, and started on Precedex which is currently infusing at 0.12 mcg/kg per hour. He is fairly sedated on this dose, and it could be weaned down. He does not follow commands, briefly opens his eyes to painful stimuli. He is currently on 3 L nasal cannula. SpO2 was in reading at 98%. Insulin is currently infusing at 12.7 units per hour. Most recent BMP at our facility shows a sodium of 150, potassium 4, chloride 112, serum bicarb of 29, anion gap 9, BUN 72, creatinine 1.76, and blood glucose is down to 166. D5W/half-normal saline with 20 meq K is infusing at 150 ML's per hour. Patient's hemoglobin A1c is 13.6. LFTs are mildly elevated. TSH level was 1.24. CBC done in our facility shows a WBC count 11.9, hemoglobin 10.4, hematocrit 29, platelets 187. Urinalysis not significant for urinary tract infection. He is afebrile. Vital signs are stabl e. He will be monitored in the intensive care unit. On 06/27/2023, the patient is being seen for a follow-up. The patient was transferred to us for altered mental status and hyperglycemia related to hyperosmolar nonketotic state. The patient remains in the intensive care unit. The patient remains on a BiPAP at pressure 14/6 cm of water with an FiO2 of 40%. Overnight, he was quite restless and agitated. He remains on 2 point restraints. He was given a total of 5 mg of Ativan overnight. This morning, is quite comfortable and his synchronous with the BiPAP machine. He remains encephalopathic for now. Precedex is also running at 0.7 mcg/kg/h to control his agitation. CAT scan of the brain showed some chronic microvascular changes. The patient remains on IV fluids. He is currently on half-normal saline at the rate of 150 mL an hour. Is also on an insulin drip at 3 units an hour. Blood sugars under better control for now. In terms of his blood work, no new labs are available from today. Most recent labs are from yesterday and morning labs are still pending for now. His chest x-ray showed no acute abnormalities. Ultrasound the kidneys showed no evidence of any hydronephrosis. There was a concern of a neck/thyroid mass and for that reason, the patient was given an u ltrasound of the thyroid that showed a a 2.2 x 2.5 x 2.0 cm mixed cystic and solid nodule on the right. Hemodynamically stable. Cardiac rhythm is sinus. No other significant issues overnight. On today's evaluation of 06/28/2023, the patient is restless and is thrashing in bed. Nevertheless, he seems to be more alert and awake compared to yesterday. His opening up his eyes and is trying to get out of bed. He has a sitter at the bedside. He remains on Precedex which is running at 0.9 microvascular kilogram per minutes. He was also given Ativan overnight and he was getting frequent doses. The patient is currently off BiPAP. He was taken off BiPAP yesterday midday and he was placed on nasal cannula at 2 L. No signs of any respiratory distress. No neck stiffness. No fever. No hemodynamic instability. No hypoxemia. He is hemodynamically stable. BUN is at 50 with a creatinine 0.8 and a sodium level is at 142 and the patient is on normal saline at rate of 75 mL an hour. I'll discuss 4.4 with a hemoglobin of 8.4. He remains nothing by mouth. Unable to take his oral medication as the patient is quite altered mentally and his swallow is not properly at this point in time. On today's evaluation of 06/29/2023, I'm seeing the patient for a follow-up. Agitation or restlessness and delirium is an ongoing issue for this patient. The patient is currently on Precedex at 0.8 mcg/kg/h. This needs to be gradually weaned off. I noticed that he is a is able to communicate more effectively and he was able to mention his date of today. He is not consistently following commands. Neurologic exam is nonfocal at this point in time and the patient is moving all 4 extremities without any limitation. Hemodynamically stable. Is on oxygen at 2 L nasal cannula. He has limited on multiple psychotropic medications on outpatient basis including Seroquel, they are milligrams at bedtime, Effexor XL are 150 mg by mouth twice a day, Wellbutrin SR 150 mg by mouth twice a day and Depakote 1 g at bedtime. Note that those medications have not been started the patient hasn't been able to safely swallow. The patient has a sitter at the bedside. In terms of blood sugar control, the patient was having episodes of hypoglycemia. Based on that, the Levemir insulin was placed on hold and the blood sugars are gradually on the rise and the patient will be started on a lower dose of Levemir for now in addition to a sliding scale coverage. IV fluids are currently running at 75 mL an hour and the patient is on oxygen at 2 L nasal cannula. EEG was done yesterday and it showed no seizure activity. The patient has abnormal EEG with moderate lowering and this is indicative of generalized cerebral dysfunction. Neurology consultation was also performed and that input is appreciated. Objective - Vital Signs Vital signs: Vital Signs Temp 100.4 F H 06/29/23 08:00 Pulse 62 06/29/23 09:00 Resp 7 L 06/29/23 09:00 BP 127/65 06/29/23 09:00 Pulse Ox 97 06/29/23 09:00 FiO2 40 06/27/23 11:39 Intake & Output 06/28/23 06/29/23 06/29/23 18:59 06:59 18:59 Intake Total 1735.754 1291.487 225 Output Total 1110 1120 275 Balance 158.905 -96.513 -50 Weight 86.1 kg Intake: IV 1125 900 225 0.45@150 1125 75 Sodium Chloride 0.9% 1, 825 225 000 ml @ 75 mls/hr IV . [id number] HAYDE Rx#:[id number] Intake, IV Titration 143.905 123.487 Amount Dexmedetomidine/0.9% NaCl 143.905 123.487 (Pmx) 400 mcg In Empty Bag 1 bag @ 0.2 MCG/KG/HR 3.856 mls/hr IV .Q24H HAYDE Rx#:[id number] Output: Urine 1110 1120 275 Other: Voiding Method Indwelling Catheter Indwelling Catheter # Bowel Movements 1 - Exam GENERAL EXAM: Obtunded, 63-year-old white male, sedated in no apparent distress., The patient remains on a 2liters NC HEAD: Normocephalic and atraumatic EYES: Normal reaction of pupils, equal size. NOSE: Clear with pink turbinates. THROAT: No erythema or exudates. NECK: No masses, no JVD. CHEST: No chest wall deformity. LUNGS: Equal air entry with no crackles, wheeze, rhonchi or dullness. No conversational dyspnea or accessory muscle use.. CVS: S1 and S2 normal with no audible murmur, regular rhythm. No extra heart sounds ABDOMEN: No hepatosplenomegaly, active bowel sounds, no guarding or rigidity. SPINE: No scoliosis or deformity SKIN: No rashes CENTRAL NERVOUS SYSTEM: Patient is fairly sedated and obtunded. Depressed DTRs in all 4 extremities. No clonus. EXTREMITIES: Currently in bilateral upper extremities soft restraints. Neurovascular status of upper extremity is intact. There is no peripheral edema, clubbing, or cyanosis. Peripheral pulses are intact. - Labs CBC & Chem 7: 06/29/23 03:58 06/29/23 03:58 Labs: Abnormal Lab Results - Last 24 Hours (Table) 06/28/23 06/28/23 06/29/23 Range/Units 16:40 23:18 03:58 RBC 2.60 L (4.30-5.90) m/uL Hgb 8.2 L (13.0-17.5) gm/dL Hct 24.4 L (39.0-53.0) % Plt Count 92 L (150-450) k/uL Lymphocytes # (Manual) 0.91 L (1.0-4.8) k/uL Chloride (98-107) mmol/L Carbon Dioxide (22-30) mmol/L Glucose (74-99) mg/dL POC Glucose (mg/dL) 178 H 289 H (70-110) mg/dL Calcium (8.4-10.2) mg/dL 06/29/23 06/29/23 Range/Units 03:58 05:20 RBC (4.30-5.90) m/uL Hgb (13.0-17.5) gm/dL Hct (39.0-53.0) % Plt Count (150-450) k/uL Lymphocytes # (Manual) (1.0-4.8) k/uL Chloride 115 H (98-107) mmol/L Carbon Dioxide 17 L (22-30) mmol/L Glucose 215 H (74-99) mg/dL POC Glucose (mg/dL) 261 H (70-110) mg/dL Calcium 8.3 L (8.4-10.2) mg/dL Microbiology - Last 24 Hours (Table) 06/25/23 16:51 Blood Culture - Preliminary Blood Assessment and Plan Assessment: Acute Hyperglycemia, related to mild DHHS. The patient is off Levemir will for now and cover him only with slight scale coverage. Diabetes mellitus type 2, poorly controlled Altered mental status, likely related to toxic metabolic encephalopathy, secondary to above. CAT scan of the brain showed some chronic white matter changes. No CVA. No seizure activity. The patient is on Precedex and Haldol for agitation. No significant history of alcoholism. Nevertheless, the patient is an extensive psychiatric history. He is a previous alcoholic. The patient obviously may have a component of delirium at this point in time. he signs of serotonergic syndrome. Unable to take his psychiatric medication as the patient is not awake enough to take oral medication. She remains on Precedex at 0.8 mcg/kg/h. The patient is also requiring Haldol and he was given few lows overnight. Poorly controlled diabetes mellitus. The patient will maintain on insulin on outpatient basis and he has been taken Lantus 34 units at bedtime, NovoLog 15 units at lunch, 25 at breakfast and 28 at supper. 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 No evidence of any stridor. Ultrasound the thyroid showed a right thyroid nodule as discussed. Acute hypoxemic respiratory failure, currently on BiPAP at a pressure of 14/6 cm of water with FiO2 of 40% with a pulse ox of 94% acute kidney injury, no baseline creatinine available, improving and the patient is currently on IV fluids Hypernatremia History of uncontrolled insulin-dependent diabetes mellitus, hemoglobin A1c of 13.6 History of anxiety/depression/bipolar disorder, maintain on a combination of Seroquel, Effexor, Wellbutrin, and Depakote. Coronary artery disease with previous coronary artery bypass surgery Plan: Keep the patient on Precedex and titrate currently on 0.8 micrograms Discontinue Ativan and use Haldol 1-2 mg every 2 hours to control his agitation. Restart his psychiatric medications once the patient is able to swallow his oral medication. No Ativan Levemir 10 units daily along with a sliding scale coverage Continue oxygen 2 L/m nasal cannula and the patient is off the BiPAP Continue normal saline at rate of 75 Chest x-rays not showing any acute abnormalities is clear Neurology consultation has been appreciated. The patient had an EEG that showed moderate encephalopathy. sitter at the bedside We'll continue to follow Critical care evaluation, >30 min
[2023-06-29] MEDS: SODIUM CHLORIDE 0.9% 1,000 ML IV SCH (09:28)
[2023-06-29] MEDS: EZETIMIBE 10 MG TAB PO SCH (09:37)
[2023-06-29] MEDS: VENLAFAXINE HCL ER 150 MG CAP PO SCH ×2 (09:38→16:06)
[2023-06-29] MEDS ORDERED: buPROPion SR 150 MG TABLET.ER PO SCH (09:45)
[2023-06-29 11:45] LABS: Glucose,Whole Blood 258 mg/dL (70-110)
--- NOTE | 2023-06-29 11:47 | P.PN ---
Subjective Progress Note Date: 06/29/23 Hospital Course: 63-year-old male with no well known past medical history presented from outside hospital for hyperglycemia, altered mentation. On initial presentation, his WBC was 10.4, hemoglobin 9.5, anion gap 16, bicarb 24, BUN 85, creatinine 2.9, glucose 650, pH 7.358, pCO2 37, lactate 1.6, respiratory viral panel negative, troponin negative, acetone minimal, UA negative. EKG shows sinus rhythm. CT head showed no acute process. CT abdomen showed constipation and distended bladder. CT neck showed right lobe thyroid mass. Per records, patient received 2 mg of IV Haldol, 0.5 mg of IV Ativan as well as was started on insulin drip. Per report, patient received 5 mg of IV Versed on the way from other hospital. In the ED at our facility, patient saturating 95% on 3 L, rest of the vitals s igns were otherwise normal limits. Point of care glucose was 532. Labs at our facility showed WBC of 11.9, hemoglobin of 10.4, BUN 90, creatinine on 08, glucose of 495, mildly elevated ALT of 68, ALP 153. Patient being admitted for acute metabolic encephalopathy in the setting of HHS versus mild DKA. Patient continued to remain agitated requiring restraints. He was transferred to medical ICU. He remains agitated. Currently on Precedex drip. Subjective: Patient seen and examined at bedside. No acute events overnight. Restraints in place. Sitter at bedside. He is interactive to voice, but is still encephalopathic and agitation requiring precedex gtt - has had limited PO intake due to AMS. Gen: awake, alert, confused HEENT: normocephalic, atraumatic, good hearing acuity, moist mucous membranes Resp: good air exchange, breathing comfortably with no accessory muscle use CVS: good distal perfusion x 4, GI: soft, NTTP, ND : no SPT, no CVAT, freeman catheter not present MSK: no pitting edema, no clubbing Neuro: non-focal, moving all extremities Assessment and Plan: Acute metabolic encephalopathy with agitation History of psychosis - metablic acidosis has improved, but non-gap acidosis is still present and mild - psychiatry consult is pending - patient has been unable to take his home depakote, effexor, and seroquel; has rec'd PRN haldol overnight - valproic acid level is subtherapeutic at 32.7 - ETOH level was < 10 - serum osmolality will be ordered to eval for osmol gap, and if positive will order volatiles screen - continue precedex as needed - bedside swallow evaluation, please inform MD when able to tolerate PO Uncontrolled type 2 diabetes, A1c 13.6 HHS versus mild DKA, resolved - insulin gtt d/c'd, transitioned to SQ levemir 10U, aspart SSI q6h - continue NS @ 75cc/hr Anemia, normocytic Thrombocytopenia - unclear etiology; B12/Folate are high - Timing of Plt drop (92 on 06/29, 187 on 06/25) is not consistent with HIT - will d/c SQ heparin and replace with lovenox 40 SQ daily - reticulocyte count, LDH, haptoglobin ordered Thyroid mass -TSH wnl -outpatient PCP f/u [facility] Urinary retention - resolved s/p freeman catheter insertion and IVF Dyslipidemia - atorvastatin 80mg HS DVT ppx: Subcu enoxaparin Code status: Full code Anticipated discharge place: Pending clinical course Anticipated discharge time: Pending clinical course Objective - Vital Signs Vital signs: Vital Signs Temp 100.4 F H 06/29/23 08:00 Pulse 71 06/29/23 11:00 Resp 19 06/29/23 11:00 BP 129/85 06/29/23 11:00 Pulse Ox 97 06/29/23 11:00 FiO2 40 06/27/23 11:39 Intake & Output 06/28/23 06/29/23 06/29/23 18:59 06:59 18:59 Intake Total 4233.666 8024.487 933.660 Output Total 1110 1120 375 Balance 158.905 -96.513 558.660 Weight 86.1 kg Intake: IV 1125 900 375 0.45@150 1125 75 Sodium Chloride 0.9% 1, 825 375 000 ml @ 75 mls/hr IV . [id number] [facility]AYDE Rx#:[id number] Intake, IV Titration 143.905 123.487 68.660 Amount Dexmedetomidine/0.9% NaCl 143.905 123.487 68.660 (Pmx) 400 mcg In Empty Bag 1 bag @ 0.2 MCG/KG/HR 3.856 mls/hr IV .Q24H [facility]AYDE Rx#:[id number] Oral 490 Output: Urine 1110 1120 375 Other: Voiding Method Indwelling Catheter Indwelling Catheter Indwelling Catheter # Bowel Movements 1 - Labs CBC & Chem 7: 06/29/23 03:58 06/29/23 03:58 Labs: Abnormal Lab Results - Last 24 Hours (Table) 06/28/23 06/28/23 06/29/23 Range/Units 16:40 23:18 03:58 RBC 2.60 L (4.30-5.90) m/uL Hgb 8.2 L (13.0-17.5) gm/dL Hct 24.4 L (39.0-53.0) % Plt Count 92 L (150-450) k/uL Lymphocytes # (Manual) 0.91 L (1.0-4.8) k/uL Chloride (98-107) mmol/L Carbon Dioxide (22-30) mmol/L Glucose (74-99) mg/dL POC Glucose (mg/dL) 178 H 289 H (70-110) mg/dL Calcium (8.4-10.2) mg/dL 06/29/23 06/29/23 Range/Units 03:58 05:20 RBC (4.30-5.90) m/uL Hgb (13.0-17.5) gm/dL Hct (39.0-53.0) % Plt Count (150-450) k/uL Lymphocytes # (Manual) (1.0-4.8) k/uL Chloride 115 H (98-107) mmol/L Carbon Dioxide 17 L (22-30) mmol/L Glucose 215 H (74-99) mg/dL POC Glucose (mg/dL) 261 H (70-110) mg/dL Calcium 8.3 L (8.4-10.2) mg/dL Microbiology - Last 24 Hours (Table) 06/25/23 16:51 Blood Culture - Preliminary Blood
[2023-06-29 12:45] LABS: LDH 356 U/L (120-246)
[2023-06-29 12:54] LABS: Reticulocyte % 1.6 % (0.5-2.0)
[2023-06-29] MEDS ORDERED: flUPHENAZine 2.5 MG/ML (MDV) 10 ML VIAL IM ONE (13:15)
--- NOTE | 2023-06-29 14:04 | P.CN ---
Psychiatric Consult - . Consult date: 06/29/23 Consult:: 06/29/23 12:15 IDENTIFYING DATA: This patient is a 63-year-old male, who currently lives with his in a house, he has 3 kids REASON FOR REFERRAL: Psychiatry was consulted for "multiple psychiatric medications, severe altered MENTAL status". HISTORY OF PRESENT ILLNESS: The patient presented to the hospital on 06/25 as a transfer, patient was indicated had renal failure, he was also combative and disoriented. Patient is currently in the ICU receiving treatment, he was in restraints with a sitter at his side. Patient is being described as being encephalopathic and agitated. Patient is currently on precedex titration and haldol prn and has selectiely been taking some psych meds. Patient's mother states that patient is doing a bit better today however continues to be disoriented, agitated at times and in restraints. Patient apparently has been kicking at times internally get out of bed. Patient was seen today laying in bed, patient was restless, poor eye contact poor attention span trying to get out of bed. He was kicking at times. Patient was also calling out for "mom" and also another name. She knew his crack name however did not know his date of , patient did not know the location he was in. He was a poor historian and did not answer many questions and cannot follow commands. was at his side and asked further questions and rest of information was taken from her. She states that patient was hallucinating earlier calling out for different people and his mother who is . She states that he is "in and out mentally" . states that she does not use any substances or any cigarettes or alcohol. PAST PSYCHIATRIC HISTORY: Patient has a a history of bipolar disorder and ADHD according to . Patient is currently on Effexor and Wellbutrin and Depakote. Patient denies any previous psychiatric hospitalizations. Patient is currently being seen by a tele-psychiatrist Dr Buchanan. Patient denies any history of suicide attempts in the past. Past Medical History: Unable to Obtain History of Any Multi-Drug Resistant Organisms: Unobtainable Past Surgical History: Unable to Obtain Past Psychological History: Unable to Obtain Smoking Status: Unknown if ever smoked ALLERGIES: as per EMR. CHEMICAL DEPENDENCY HISTORY: as per HPI. FAMILY PSYCHIATRIC/SUBSTANCE USE HISTORY: Patient's daughters have anxiety, his son apparently has bipolar disorder SOCIAL HISTORY: Patient was born and raised in [facility], states that he completed high school, he was in the [employer] from [id number]. Denies any legal history. He currently lives with his in a house, the 3 kids. MENTAL STATUS EXAM: General Appearance: Patient appears to be thin, longer hair, has a brannon, stated age is alert, agitated and restless. Patient appears to have fair hygiene and grooming wearing hospital gown with poor eye contact. Behavior: Age and is restless in bed, kicking and moving around. Speech: Patient's speech is fluent and nonpressured. Trinity Mood/Affect: Patient reports their mood is "ok", affect is incongruent Suicidality/Homicidality: Unable to assess Perceptions: unable to assess Though content/process: Trinity, poverty of content, bizarre, calling out names Memory and concentration: AOX1, to name only. Patient cannot follow directions/commands. Cannot spell "WORLD" backwards Judgment and insight: poor IMPRESSIONS: Delirium, unknown etiology History of bipolar disorder History of ADHD PLAN: -At this time patient DOES NOT meet criteria for inpatient psychiatric admission. -Delirium precautions recommended with patient including - avoiding use of narc otics and [employer] sedatives, limit anticholinergic medications when possible, frequent re-orientation, minimize use of restraints, open window shades during the day and close them at night -Would recommend the following medication changes/additions: please refrain from giving him benzodiazepines or opiates at this time as this will further increase patient's confusion and disorientation. Give prolixin IM one dose for agitation. Prolixin q8hr prn IM for agitation/psychosis. We'll start Risperdal 1 mg twice a day for psychosis/confusion, can continue with Depakote as prescribed and Effexor as prescribed. Will discontinue Wellbutrin this time. Added melatonin 5 mg daily at bedtime for sleep. -Continue 1:1 sitter for safety -Communicated plan to patient's nurse -Will continue to follow along as needed -Please contact with any questions.
[2023-06-29] MEDS: ASPIRIN 81 MG PO SCH (16:06)
[2023-06-29 18:51] LABS: Glucose,Whole Blood 427 mg/dL (70-110)
[2023-06-29] MEDS ORDERED: INSULIN DETEMIR (LEVEMIR) 100 UNIT/ML SYR SQ SCH (21:00)
[2023-06-29] MEDS ORDERED: MELATONIN 5 MG TABLET PO SCH (21:00)
[2023-06-29] MEDS: risperiDONE 1 MG TAB PO SCH (21:18)
[2023-06-29] MEDS: ATORVASTATIN 80 MG TAB PO SCH (21:18)
[2023-06-29] MEDS: DIVALPROEX ER 500 MG TAB.ER.24H PO SCH (21:18)
[2023-06-30 00:12] LABS: Glucose,Whole Blood 181 mg/dL (70-110)
[2023-06-30] MEDS: INSULIN ASPART (NovoLOG) 100 UNIT/ML VIAL SQ SCH ×6 (00:39→21:47)
[2023-06-30] MEDS: SODIUM CHLORIDE 0.9% 1,000 ML IV SCH ×2 (02:37→15:44)
[2023-06-30 05:57] LABS: African American GFR (CKD) >90 (>60 ml/min/1.73 sqM); Anion Gap 11 mmol/L; Blood Urea Nitrogen 15 mg/dL (9-20); Calcium 8.6 mg/dL (8.4-10.2); Carbon Dioxide 20 mmol/L (22-30); Chloride 117 mmol/L (98-107); Glucose 115 mg/dL (74-99); Magnesium 1.9 mg/dL (1.6-2.3); Non-African American GFR(CKD) >90 (>60 ml/min/1.73 sqM); Potassium 3.2 mmol/L (3.5-5.1); Sodium 148 mmol/L (137-145)
[2023-06-30 05:57] LABS: Glucose,Whole Blood 134 mg/dL (70-110)
[2023-06-30 06:11] LABS: HGB 8.4 gm/dL (13.0-17.5); MCH 32.1 pg (25.0-35.0); MCHC 34.8 g/dL (31.0-37.0); MCV 92.2 fL (80.0-100.0); Mean Platelet Volume 9.3; Platelet Count 126 k/uL (150-450); RDW 13.3 % (11.5-15.5); WBC 5.2 k/uL (3.8-10.6)
[2023-06-30] MEDS: POTASSIUM CHLORIDE ER 20 MEQ TAB.ER PO SCH ×2 (06:43→08:38)
[2023-06-30] MEDS ORDERED: Magnesium Replacement Protocol 1 EACH MISC MISCELLANE PRN (08:35)
[2023-06-30] MEDS: VENLAFAXINE HCL ER 150 MG CAP PO SCH ×2 (08:38→15:47)
[2023-06-30] MEDS: EZETIMIBE 10 MG TAB PO SCH (08:38)
[2023-06-30] MEDS: risperiDONE 1 MG TAB PO SCH (08:38)
[2023-06-30] MEDS: PANTOPRAZOLE 40 MG/10 ML VIAL IVP SCH (08:44)
[2023-06-30] MEDS: THIAMINE 100 MG/ML 2 ML VIAL IVP SCH (08:44)
[2023-06-30] MEDS ORDERED: ENOXAPARIN 40 MG/0.4 ML SYRINGE SQ SCH (09:00)
--- NOTE | 2023-06-30 09:04 | P.PN ---
Subjective Progress Note Date: 06/30/23 I am seeing this patient in new consultation today 06/26/2023 in the intensive care unit after the patient was transferred from [facility] for altered mental status and high blood sugars. Patient is a 63-year-old white male whose past medical history is largely unknown. He is currently confused and obtunded, unable to answer questions. Apparently, patient presented to [facility] yesterday he was found to be combative and confused. His blood sugars were also found to be severely high at 808 g/dL. Serum CO2 was 20, anion gap 23. Ketones were mildly positive. Possible in mild DKA vs HHS. Patient did have an initial workup, including a brain CT which did not show any acute intracranial process. Urine drug screen also negative. EtOH level at our facility was less than 10. A CT of the chest done at the outside facility reported a mass within the superior mediastinum favoring to be from the right lobe of the thyroid. There were also postsurgical open-heart changes, and dependent atelectasis without acute infiltrates. Upon transfer, the patient became combative and agitated. He required restraints, multiple doses of Ativan, and a dose of Zyprexa. Patient was then admitted to the intensive care unit, and started on Precedex which is currently infusing at 0.12 mcg/kg per hour. He is fairly sedated on this dose, and it could be weaned down. He does not follow commands, briefly opens his eyes to painful stimuli. He is currently on 3 L nasal cannula. SpO2 was in reading at 98%. Insulin is currently infusing at 12.7 units per hour. Most recent BMP at our facility shows a sodium of 150, potassium 4, chloride 112, serum bicarb of 29, anion gap 9, BUN 72, creatinine 1.76, and blood glucose is down to 166. D5W/half-normal saline with 20 meq K is infusing at 150 ML's per hour. Patient's hemoglobin A1c is 13.6. LFTs are mildly elevated. TSH level was 1.24. CBC done in our facility shows a WBC count 11.9, hemoglobin 10.4, hematocrit 29, platelets 187. Urinalysis not significant for urinary tract infection. He is afebrile. Vital signs are stabl e. He will be monitored in the intensive care unit. On 06/27/2023, the patient is being seen for a follow-up. The patient was transferred to us for altered mental status and hyperglycemia related to hyperosmolar nonketotic state. The patient remains in the intensive care unit. The patient remains on a BiPAP at pressure 14/6 cm of water with an FiO2 of 40%. Overnight, he was quite restless and agitated. He remains on 2 point restraints. He was given a total of 5 mg of Ativan overnight. This morning, is quite comfortable and his synchronous with the BiPAP machine. He remains encephalopathic for now. Precedex is also running at 0.7 mcg/kg/h to control his agitation. CAT scan of the brain showed some chronic microvascular changes. The patient remains on IV fluids. He is currently on half-normal saline at the rate of 150 mL an hour. Is also on an insulin drip at 3 units an hour. Blood sugars under better control for now. In terms of his blood work, no new labs are available from today. Most recent labs are from yesterday and morning labs are still pending for now. His chest x-ray showed no acute abnormalities. Ultrasound the kidneys showed no evidence of any hydronephrosis. There was a concern of a neck/thyroid mass and for that reason, the patient was given an u ltrasound of the thyroid that showed a a 2.2 x 2.5 x 2.0 cm mixed cystic and solid nodule on the right. Hemodynamically stable. Cardiac rhythm is sinus. No other significant issues overnight. On today's evaluation of 06/28/2023, the patient is restless and is thrashing in bed. Nevertheless, he seems to be more alert and awake compared to yesterday. His opening up his eyes and is trying to get out of bed. He has a sitter at the bedside. He remains on Precedex which is running at 0.9 microvascular kilogram per minutes. He was also given Ativan overnight and he was getting frequent doses. The patient is currently off BiPAP. He was taken off BiPAP yesterday midday and he was placed on nasal cannula at 2 L. No signs of any respiratory distress. No neck stiffness. No fever. No hemodynamic instability. No hypoxemia. He is hemodynamically stable. BUN is at 50 with a creatinine 0.8 and a sodium level is at 142 and the patient is on normal saline at rate of 75 mL an hour. I'll discuss 4.4 with a hemoglobin of 8.4. He remains nothing by mouth. Unable to take his oral medication as the patient is quite altered mentally and his swallow is not properly at this point in time. On today's evaluation of 06/29/2023, I'm seeing the patient for a follow-up. Agitation or restlessness and delirium is an ongoing issue for this patient. The patient is currently on Precedex at 0.8 mcg/kg/h. This needs to be gradually weaned off. I noticed that he is a is able to communicate more effectively and he was able to mention his date of today. He is not consistently following commands. Neurologic exam is nonfocal at this point in time and the patient is moving all 4 extremities without any limitation. Hemodynamically stable. Is on oxygen at 2 L nasal cannula. He has limited on multiple psychotropic medications on outpatient basis including Seroquel, they are milligrams at bedtime, Effexor XL are 150 mg by mouth twice a day, Wellbutrin SR 150 mg by mouth twice a day and Depakote 1 g at bedtime. Note that those medications have not been started the patient hasn't been able to safely swallow. The patient has a sitter at the bedside. In terms of blood sugar control, the patient was having episodes of hypoglycemia. Based on that, the Levemir insulin was placed on hold and the blood sugars are gradually on the rise and the patient will be started on a lower dose of Levemir for now in addition to a sliding scale coverage. IV fluids are currently running at 75 mL an hour and the patient is on oxygen at 2 L nasal cannula. EEG was done yesterday and it showed no seizure activity. The patient has abnormal EEG with moderate lowering and this is indicative of generalized cerebral dysfunction. Neurology consultation was also performed and that input is appreciated. On today's evaluation of 06/30/2023, seeing the patient for a follow-up. Is currently off Precedex and this medication was discontinued this morning. He is awake and communicating. He remains confused. He is pleasantly confused. He cannot answer all questions appropriately. He continues to try to get out of bed. He was seen by psychiatry yesterday. He was started on Risperdal 1 mg twice a day. He was also started on Effexor XR 150 mg twice a day and Depakote will be discontinued and the patient will be given Prolixin 30 mg IM every 8 hours on an as-needed basis. He is on room air oxygen. No signs of any respiratory distress. BiPAP has been discontinued. He remains on Levemir insulin 10 units daily. He is on Lovenox portably prophylaxis. Labs from today show a white cell count of 5.2 with a hemoglobin of 8.4. Sodium level is at 148 and the patient is currently on normal saline at the rate of 75 mL an hour. His potassium levels at 3.2. The ends of 50 with a creatinine of 0.8. Objective - Vital Signs Vital signs: Vital Signs Temp 97.4 F L 06/30/23 04:00 Pulse 66 06/30/23 06:00 Resp 13 06/30/23 06:00 BP 156/75 06/30/23 06:00 Pulse Ox 96 06/30/23 08:03 FiO2 40 06/27/23 11:39 Intake & Output 06/29/23 06/30/23 06/30/23 18:59 06:59 18:59 Intake Total 2056.660 920.793 Output Total 925 1600 Balance 1131.660 -679.207 Weight 87.7 kg Intake: IV 900 825 Sodium Chloride 0.9% 1, 900 825 000 ml @ 75 mls/hr IV . [id number] [facility] Rx#:[id number] Intake, IV Titration 68.660 95.793 Amount Dexmedetomidine/0.9% NaCl 68.660 95.793 (Pmx) 400 mcg In Empty Bag 1 bag @ 0.2 MCG/KG/HR 3.856 mls/hr IV .Q24H [facility] Rx#:[id number] Oral 1088 Output: Urine 925 1600 Other: Voiding Method Indwelling Catheter Indwelling Catheter # Bowel Movements 1 - Exam GENERAL EXAM: Obtunded, 63-year-old white male, sedated in no apparent distress., The patient remains on a RA HEAD: Normocephalic and atraumatic EYES: Normal reaction of pupils, equal size. NOSE: Clear with pink turbinates. THROAT: No erythema or exudates. NECK: No masses, no JVD. CHEST: No chest wall deformity. LUNGS: Equal air entry with no crackles, wheeze, rhonchi or dullness. No conversational dyspnea or accessory muscle use.. CVS: S1 and S2 normal with no audible murmur, regular rhythm. No extra heart sounds ABDOMEN: No hepatosplenomegaly, active bowel sounds, no guarding or rigidity. SPINE: No scoliosis or deformity SKIN: No rashes CENTRAL NERVOUS SYSTEM: Patient is fairly sedated and obtunded. Depressed DTRs in all 4 extremities. No clonus. EXTREMITIES: Currently in bilateral upper extremities soft restraints. Neurovascular status of upper extremity is intact. There is no peripheral edema, clubbing, or cyanosis. Peripheral pulses are intact. - Labs CBC & Chem 7: 06/30/23 05:30 06/30/23 05:30 Labs: Abnormal Lab Results - Last 24 Hours (Table) 06/29/23 06/29/23 06/29/23 Range/Units 03:58 11:44 18:50 RBC (4.30-5.90) m/uL Hgb (13.0-17.5) gm/dL Hct (39.0-53.0) % Plt Count (150-450) k/uL Sodium (137-145) mmol/L Potassium (3.5-5.1) mmol/L Chloride (98-107) mmol/L Carbon Dioxide (22-30) mmol/L Glucose (74-99) mg/dL POC Glucose (mg/dL) 258 H 427 H (70-110) mg/dL Osmolality 310 H (280-301) mosm/kg Lactate Dehydrogenase 356 H (120-246) U/L 06/30/23 06/30/23 06/30/23 Range/Units 00:10 05:30 05:30 RBC 2.60 L (4.30-5.90) m/uL Hgb 8.4 L (13.0-17.5) gm/dL Hct 24.0 L (39.0-53.0) % Plt Count 126 L (150-450) k/uL Sodium 148 H (137-145) mmol/L Potassium 3.2 L (3.5-5.1) mmol/L Chloride 117 H (98-107) mmol/L Carbon Dioxide 20 L (22-30) mmol/L Glucose 115 H (74-99) mg/dL POC Glucose (mg/dL) 181 H (70-110) mg/dL Osmolality (280-301) mosm/kg Lactate Dehydrogenase (120-246) U/L 06/30/23 Range/Units 05:56 RBC (4.30-5.90) m/uL Hgb (13.0-17.5) gm/dL Hct (39.0-53.0) % Plt Count (150-450) k/uL Sodium (137-145) mmol/L Potassium (3.5-5.1) mmol/L Chloride (98-107) mmol/L Carbon Dioxide (22-30) mmol/L Glucose (74-99) mg/dL POC Glucose (mg/dL) 134 H (70-110) mg/dL Osmolality (280-301) mosm/kg Lactate Dehydrogenase (120-246) U/L Assessment and Plan Assessment: Acute Hyperglycemia, related to mild DHHS. The patient is on Levemir 10 units will for now and cover him only with slight scale coverage. Diabetes mellitus type 2, poorly controlled Altered mental status, likely related to toxic metabolic encephalopathy, secondary to above. CAT scan of the brain showed some chronic white matter changes. No CVA. No seizure activity. The patient is off Precedex patient was given Prolixin 3 mg as needed, he was also started on risperidone 1 mg twice a day and he is also on Effexor. Patient was seen by psychiatry. Poorly controlled diabetes mellitus. The patient will maintain on insulin on outpatient basis and he has been taken Lantus 34 units at bedtime, NovoLog 15 units at lunch, 25 at breakfast and 28 at supper. 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 No evidence of any stridor. Ultrasound the thyroid showed a right thyroid nodule as discussed. Acute hypoxemic respiratory failure, currently on BiPAP at a pressure of 14/6 cm of water with FiO2 of 40% with a pulse ox of 94% acute kidney injury, no baseline creatinine available, improving and the patient is currently on IV fluids Hypernatremia History of uncontrolled insulin-dependent diabetes mellitus, hemoglobin A1c of 13.6 History of anxiety/depression/bipolar disorder, maintain on a combination of Seroquel, Effexor, Wellbutrin, and Depakote. Coronary artery disease with previous coronary artery bypass surgery Plan: Continue risperidone and Prolixin on an as-needed basis Continue Effexor Stop Ativan and Haldol for now Currently on room and oxygen Switch him to half-normal saline at the rate of 75 mL's an hour along with multi vitamins Levemir 10 units daily along with a sliding scale coverage She is currently on room air and we'll going to discontinue the BiPAP Chest x-rays not showing any acute abnormalities is clear Neurology consultation has been appreciated. The patient had an EEG that showed moderate encephalopathy. sitter at the bedside
[2023-06-30] MEDS ORDERED: 0.9% NACL WITH KCL 20 MEQ/L 1,000 ML with MVI, ADULT NO.4 WITH VIT K 10 ML, THIAMINE 10... IV SCH ×4 (09:15)
[2023-06-30 09:26] LABS: Lymphocytes # (M) 1.04 k/uL (1.0-4.8); Monocytes # (M) 0.78 k/uL (0-1.0); Neutrophils # (M) 3.28 k/uL (1.3-7.7); Neutrophils % (M) 63 %; Nucleated Red Blood Cells 0 /100 WBC (0-0); Total Cells Counted 100
[2023-06-30] MEDS ORDERED: MAGNESIUM SULFATE-D5W PMX 1 GM in DEXTROSE/WATER 1 100ML.BAG IVPB ONE (09:30)
[2023-06-30] MEDS: flUPHENAZine 2.5 MG/ML (MDV) 10 ML VIAL IM PRN ×2 (09:35→21:47)
[2023-06-30] MEDS: [UNRECOGNIZED DRUG - REMARK] IV SCH ×8 (09:46→22:00)
[2023-06-30] MEDS: ISOSORBIDE MONONITRATE ER 30 MG TAB.ER.24H PO SCH (10:51)
[2023-06-30 11:04] LABS: Glucose,Whole Blood 246 mg/dL (70-110)
--- NOTE | 2023-06-30 11:14 | P.PN ---
Subjective Progress Note Date: 06/30/23 Hospital Course: 63-year-old male with no well known past medical history presented from outside hospital for hyperglycemia, altered mentation. On initial presentation, his WBC was 10.4, hemoglobin 9.5, anion gap 16, bicarb 24, BUN 85, creatinine 2.9, glucose 650, pH 7.358, pCO2 37, lactate 1.6, respiratory viral panel negative, troponin negative, acetone minimal, UA negative. EKG shows sinus rhythm. CT head showed no acute process. CT abdomen showed constipation and distended bladder. CT neck showed right lobe thyroid mass. Per records, patient received 2 mg of IV Haldol, 0.5 mg of IV Ativan as well as was started on insulin drip. Per report, patient received 5 mg of IV Versed on the way from other hospital. In the ED at our facility, patient saturating 95% on 3 L, rest of the vitals s igns were otherwise normal limits. Point of care glucose was 532. Labs at our facility showed WBC of 11.9, hemoglobin of 10.4, BUN 90, creatinine on 08, glucose of 495, mildly elevated ALT of 68, ALP 153. Patient being admitted for acute metabolic encephalopathy in the setting of HHS versus mild DKA. Patient continued to remain agitated requiring restraints. He was transferred to medical ICU. He remains agitated. Currently on Precedex drip. Subjective: Patient seen and examined at bedside. No acute events overnight. Restraints in place. Sitter at bedside. He is interactive to voice, but is still encephalopathic. Seen by psych and placed on prolixin, risperdal. Seroquel remained off. Precedex weaned off. Depakote, Effexor continued Gen: awake, alert, confused HEENT: normocephalic, atraumatic, good hearing acuity, moist mucous membranes Resp: good air exchange, breathing comfortably with no accessory muscle use CVS: good distal perfusion x 4, GI: soft, NTTP, ND : no SPT, no CVAT, freeman catheter not present MSK: no pitting edema, no clubbing Neuro: non-focal, moving all extremities Assessment and Plan: Acute metabolic encephalopathy with agitation Fevers History of psychosis - BCx: NGTD at 72 hours - repeat BCx, UA, CXR given fever of 101.2 today - EEG reviewed and c/w metabolic encephalopathy - Discussed with neurology regarding consideration of LP given encephalopathy and no source of fever, they will review and assess today - psychiatry consult is appreciated, their recs 06/30 (discussed): -prolixin IM q8h -risperdal 1mg BID -depakote, effexor continued - serum osmol is 310, but no gap is present - now on PPN for nutrition Uncontrolled type 2 diabetes, A1c 13.6 HHS versus mild DKA, resolved - insulin gtt d/c'd, transitioned to SQ levemir 10U, aspart SSI q6h - continue NS @ 75cc/hr Anemia, normocytic Thrombocytopenia - unclear etiology; B12/Folate are high - Timing of Plt drop (92 on 06/29, 187 on 06/25) is not consistent with HIT - will d/c SQ heparin and replace with lovenox 40 SQ daily - reticulocyte count, LDH, haptoglobin ordered -retic count% is 1.6: calculated index is 0.46 c/w hypoproliferative state -LDH mildly elevated, haptoglobin is 93 not c/w hemolysis Thyroid mass -TSH wnl -outpatient PCP f/u [facility] Urinary retention - resolved s/p freeman catheter insertion and IVF Dyslipidemia - atorvastatin 80mg HS DVT ppx: Subcu enoxaparin Code status: Full code Anticipated discharge place: Pending clinical course Anticipated discharge time: Pending clinical course Objective - Vital Signs Vital signs: Vital Signs Temp 101.4 F H 06/30/23 08:00 Pulse 78 06/30/23 10:00 Resp 20 06/30/23 10:00 BP 162/86 06/30/23 10:00 Pulse Ox 96 06/30/23 08:03 FiO2 40 06/27/23 11:39 Intake & Output 06/29/23 06/30/23 06/30/23 18:59 06:59 18:59 Intake Total 9306.660 920.793 227.281 Output Total 925 1600 450 Balance 1131.660 -679.207 -222.719 Weight 87.7 kg 87.7 kg Intake: IV 900 825 225 Mvi, Adult No.4 with Vit 75 K 10 ml Thiamine 100 mg Folic Acid 1 mg In 0.45% NaCl with KCl 20 Meq/l 1, 000 ml @ 75 mls/hr IV .BY DURATION [facility] Rx#: [id number] Sodium Chloride 0.9% 1, 900 825 150 000 ml @ 75 mls/hr IV . [id number] [facility] Rx#:[id number] Intake, IV Titration 68.660 95.793 2.281 Amount Dexmedetomidine/0.9% NaCl 68.660 95.793 2.281 (Pmx) 400 mcg In Empty Bag 1 bag @ 0.2 MCG/KG/HR 3.856 mls/hr IV .Q24H [facility] Rx#:[id number] Oral 1088 Output: Urine 925 1600 450 Other: Voiding Method Indwelling Catheter Indwelling Catheter # Bowel Movements 1 - Labs CBC & Chem 7: 06/30/23 05:30 06/30/23 05:30 Labs: Abnormal Lab Results - Last 24 Hours (Table) 06/29/23 06/29/23 06/29/23 Range/Units 03:58 11:44 18:50 RBC (4.30-5.90) m/uL Hgb (13.0-17.5) gm/dL Hct (39.0-53.0) % Plt Count (150-450) k/uL Sodium (137-145) mmol/L Potassium (3.5-5.1) mmol/L Chloride (98-107) mmol/L Carbon Dioxide (22-30) mmol/L Glucose (74-99) mg/dL POC Glucose (mg/dL) 258 H 427 H (70-110) mg/dL Osmolality 310 H (280-301) mosm/kg Lactate Dehydrogenase 356 H (120-246) U/L 06/30/23 06/30/23 06/30/23 Range/Units 00:10 05:30 05:30 RBC 2.60 L (4.30-5.90) m/uL Hgb 8.4 L (13.0-17.5) gm/dL Hct 24.0 L (39.0-53.0) % Plt Count 126 L (150-450) k/uL Sodium 148 H (137-145) mmol/L Potassium 3.2 L (3.5-5.1) mmol/L Chloride 117 H (98-107) mmol/L Carbon Dioxide 20 L (22-30) mmol/L Glucose 115 H (74-99) mg/dL POC Glucose (mg/dL) 181 H (70-110) mg/dL Osmolality (280-301) mosm/kg Lactate Dehydrogenase (120-246) U/L 06/30/23 Range/Units 05:56 RBC (4.30-5.90) m/uL Hgb (13.0-17.5) gm/dL Hct (39.0-53.0) % Plt Count (150-450) k/uL Sodium (137-145) mmol/L Potassium (3.5-5.1) mmol/L Chloride (98-107) mmol/L Carbon Dioxide (22-30) mmol/L Glucose (74-99) mg/dL POC Glucose (mg/dL) 134 H (70-110) mg/dL Osmolality (280-301) mosm/kg Lactate Dehydrogenase (120-246) U/L
[2023-06-30 11:41] LABS: Appearance,Urine Clear (Clear); Bilirubin,Urine Negative (Negative); Blood,Urine Small (Negative); Color,Urine Colorless; Glucose,Urine (UA) 4+ (Negative); Leukocyte Esterase,Urine Trace (Negative); Mucus,Urine Occasional /hpf; Nitrite,Urine Negative (Negative); PH, Urine 5.5 (5.0-8.0); Protein,Urine 1+ (Negative); RBC,Urine 1 /hpf (0-5); Specific Gravity,Urine 1.013 (1.001-1.035); Urobilinogen,Urine <2.0 mg/dL (<2.0); WBC,Urine 3 /hpf (0-5)
[2023-06-30 11:48] LABS: Ketones,Urine 2+ (Negative)
[2023-06-30 12:02] LABS: Glucose,Whole Blood 297 mg/dL (70-110)
--- NOTE | 2023-06-30 13:24 | XR ---
EXAMINATION TYPE: XR chest 1V DATE OF EXAM: 06/30/2023 COMPARISON: 06/27/2023 HISTORY: Fever TECHNIQUE: Single frontal view of the chest is obtained. FINDINGS: Poststernotomy changes. There is limited inspiration. Diffuse osteopenia. Coarsened inters titium. No consolidation or pleural effusion. No pneumothorax. Small sclerotic focus overlying the pr oximal right humerus. Possibly superficial or related to bone island. IMPRESSION: Coarsened interstitium could be in the bases of mild interstitial pneumonitis or bronchi tis correlate clinically. Mild venous congestion less likely but not excluded.
--- NOTE | 2023-06-30 14:48 | P.PN ---
Progress Note - Text Progress Note Date: 06/30/23 Interval history: Patient was seen today for psychiatric follow-up regarding patient's delirium. Patient was more awake today, less restless during the evaluation. He was able to answer more questions today, intelligence. Improving moderately. Sitter and patient's nurse did state that patient was seeing things/hallucinating at nighttime and earlier this morning. He received Prolixin prn earlier this morning. Patient believes that he was on a "motorcycle" and did not know his location. He knows his name and age correctly, does not know today's date believes it is "1924". He denies any depression or anxiety, denies any suicidal or homicidal ideations intent or plan. Denying any auditory or visual hallucinations currently. He has been taking his medication not reporting any side effects. MENTAL STATUS EXAM: General Appearance: Patient appears to be thin, longer hair, has a brannon, stated age is alert, not agitated and lessrestless. Patient appears to have fair hygiene and grooming wearing hospital gown with improving eye contact. Behavior: less restless in bed, more directable, improving attention span Speech: Patient's speech is fluent and nonpressured. [place] Mood/Affect: Patient reports their mood is "ok", affect is incongruent and constricted Suicidality/Homicidality: Denies Perceptions: Denies Though content/process: [place], poverty of content, bizarre, improving, more appropriate. Memory and concentration: AOX1, to name only, Patient follows directions /commands. Cannot spell "WORLD" backwards Judgment and insight: poor, improving IMPRESSIONS: Delirium, unknown etiology History of bipolar disorder History of ADHD PLAN: -At this time patient DOES NOT meet criteria for inpatient psychiatric admission. -Delirium precautions recommended with patient including - avoiding use of narcotics and EMT P sedatives, limit anticholinergic medications when possible, frequent re-orientation, minimize use of restraints, open window shades during the day and close them at night -Would recommend the following medication changes/additions: please refrain from giving him benzodiazepines or opiates at this time as this will further increase patient's confusion and disorientation. Prolixin q8hr prn IM for agitation/psychosis. increase Risperdal 2 mg twice a day for psychosis/confusion, can continue with Depakote as prescribed and Effexor as prescribed. increase melatonin 10 mg daily at bedtime for sleep. added trazodone 25 mg qhs prn for insomnia -Communicated plan to patient's nurse -Will continue to follow along if needed/requested over the weekend. -Please contact with any questions.
[2023-06-30] MEDS: ASPIRIN 81 MG PO SCH (15:47)
[2023-06-30 16:45] LABS: Glucose,Whole Blood 321 mg/dL (70-110)
[2023-06-30] MEDS ORDERED: INSULIN ASPART (NovoLOG) 100 UNIT/ML VIAL SQ SCH (18:45)
[2023-06-30 20:36] LABS: Glucose,Whole Blood 274 mg/dL (70-110)
[2023-06-30] MEDS ORDERED: INSULIN DETEMIR (LEVEMIR) 100 UNIT/ML SYR SQ SCH (21:00)
[2023-06-30] MEDS: traZODone HCL 50 MG TAB PO PRN (21:45)
[2023-06-30] MEDS: risperiDONE 2 MG TAB PO SCH (21:45)
[2023-06-30] MEDS: DIVALPROEX ER 500 MG TAB.ER.24H PO SCH (21:46)
[2023-06-30] MEDS: PROPRANOLOL 40 MG TAB PO SCH (21:46)
[2023-06-30] MEDS: ATORVASTATIN 80 MG TAB PO SCH (21:47)
[2023-06-30] MEDS: MELATONIN 5 MG TABLET PO SCH (21:47)
[2023-07-01 06:43] LABS: Glucose,Whole Blood 58 mg/dL (70-110)
[2023-07-01 07:15] LABS: Glucose,Whole Blood 78 mg/dL (70-110)
[2023-07-01] MEDS: INSULIN ASPART (NovoLOG) 100 UNIT/ML VIAL SQ SCH ×3 (07:16→17:54)
[2023-07-01] MEDS: SODIUM CHLORIDE 0.9% 1,000 ML IV SCH (07:16)
[2023-07-01] MEDS ORDERED: INSULIN ASPART (NovoLOG) 100 UNIT/ML VIAL SQ SCH (07:30)
[2023-07-01 07:43] LABS: HCT 22.9 % (39.0-53.0); HGB 7.9 gm/dL (13.0-17.5); MCH 31.4 pg (25.0-35.0); MCHC 34.5 g/dL (31.0-37.0); MCV 91.3 fL (80.0-100.0); Mean Platelet Volume 9.1; Platelet Count 147 k/uL (150-450); RBC 2.51 m/uL (4.30-5.90); RDW 13.5 % (11.5-15.5); WBC 5.1 k/uL (3.8-10.6)
[2023-07-01 07:48] LABS: African American GFR (CKD) >90 (>60 ml/min/1.73 sqM); Anion Gap 6 mmol/L; Blood Urea Nitrogen 11 mg/dL (9-20); Calcium 8.3 mg/dL (8.4-10.2); Carbon Dioxide 23 mmol/L (22-30); Chloride 114 mmol/L (98-107); Non-African American GFR(CKD) >90 (>60 ml/min/1.73 sqM); Potassium 3.5 mmol/L (3.5-5.1); Sodium 143 mmol/L (137-145)
[2023-07-01 07:50] LABS: Glucose 47 mg/dL (74-99)
[2023-07-01 07:53] LABS: Glucose,Whole Blood 112 mg/dL (70-110)
[2023-07-01] MEDS ORDERED: ISOSORBIDE MONONITRATE ER 30 MG TAB.ER.24H PO SCH (08:00)
[2023-07-01] MEDS: PANTOPRAZOLE 40 MG/10 ML VIAL IVP SCH (09:13)
[2023-07-01] MEDS: EZETIMIBE 10 MG TAB PO SCH (09:14)
[2023-07-01] MEDS: PROPRANOLOL 40 MG TAB PO SCH ×2 (09:14→21:34)
[2023-07-01] MEDS: ISOSORBIDE MONONITRATE ER 30 MG TAB.ER.24H PO SCH (09:14)
[2023-07-01] MEDS: risperiDONE 2 MG TAB PO SCH ×2 (09:14→21:35)
[2023-07-01] MEDS: VENLAFAXINE HCL ER 150 MG CAP PO SCH ×2 (09:14→17:53)
[2023-07-01] MEDS: THIAMINE 100 MG/ML 2 ML VIAL IVP SCH (09:15)
--- NOTE | 2023-07-01 09:26 | P.PN ---
Subjective Progress Note Date: 07/01/23 I am seeing this patient in new consultation today 06/26/2023 in the intensive care unit after the patient was transferred from [facility] for altered mental status and high blood sugars. Patient is a 63-year-old white male whose past medical history is largely unknown. He is currently confused and obtunded, unable to answer questions. Apparently, patient presented to [facility] yesterday he was found to be combative and confused. His blood sugars were also found to be severely high at 808 g/dL. Serum CO2 was 20, anion gap 23. Ketones were mildly positive. Possible in mild DKA vs HHS. Patient did have an initial workup, including a brain CT which did not show any acute intracranial process. Urine drug screen also negative. EtOH level at our facility was less than 10. A CT of the chest done at the outside facility reported a mass within the superior mediastinum favoring to be from the right lobe of the thyroid. There were also postsurgical open-heart changes, and dependent atelectasis without acute infiltrates. Upon transfer, the patient became combative and agitated. He required restraints, multiple doses of Ativan, and a dose of Zyprexa. Patient was then admitted to the intensive care unit, and started on Precedex which is currently infusing at 0.12 mcg/kg per hour. He is fairly sedated on this dose, and it could be weaned down. He does not follow commands, briefly opens his eyes to painful stimuli. He is currently on 3 L nasal cannula. SpO2 was in reading at 98%. Insulin is currently infusing at 12.7 units per hour. Most recent BMP at our facility shows a sodium of 150, potassium 4, chloride 112, serum bicarb of 29, anion gap 9, BUN 72, creatinine 1.76, and blood glucose is down to 166. D5W/half-normal saline with 20 meq K is infusing at 150 ML's per hour. Patient's hemoglobin A1c is 13.6. LFTs are mildly elevated. TSH level was 1.24. CBC done in our facility shows a WBC count 11.9, hemoglobin 10.4, hematocrit 29, platelets 187. Urinalysis not significant for urinary tract infection. He is afebrile. Vital signs are stabl e. He will be monitored in the intensive care unit. On 06/27/2023, the patient is being seen for a follow-up. The patient was transferred to us for altered mental status and hyperglycemia related to hyperosmolar nonketotic state. The patient remains in the intensive care unit. The patient remains on a BiPAP at pressure 14/6 cm of water with an FiO2 of 40%. Overnight, he was quite restless and agitated. He remains on 2 point restraints. He was given a total of 5 mg of Ativan overnight. This morning, is quite comfortable and his synchronous with the BiPAP machine. He remains encephalopathic for now. Precedex is also running at 0.7 mcg/kg/h to control his agitation. CAT scan of the brain showed some chronic microvascular changes. The patient remains on IV fluids. He is currently on half-normal saline at the rate of 150 mL an hour. Is also on an insulin drip at 3 units an hour. Blood sugars under better control for now. In terms of his blood work, no new labs are available from today. Most recent labs are from yesterday and morning labs are still pending for now. His chest x-ray showed no acute abnormalities. Ultrasound the kidneys showed no evidence of any hydronephrosis. There was a concern of a neck/thyroid mass and for that reason, the patient was given an u ltrasound of the thyroid that showed a a 2.2 x 2.5 x 2.0 cm mixed cystic and solid nodule on the right. Hemodynamically stable. Cardiac rhythm is sinus. No other significant issues overnight. On today's evaluation of 06/28/2023, the patient is restless and is thrashing in bed. Nevertheless, he seems to be more alert and awake compared to yesterday. His opening up his eyes and is trying to get out of bed. He has a sitter at the bedside. He remains on Precedex which is running at 0.9 microvascular kilogram per minutes. He was also given Ativan overnight and he was getting frequent doses. The patient is currently off BiPAP. He was taken off BiPAP yesterday midday and he was placed on nasal cannula at 2 L. No signs of any respiratory distress. No neck stiffness. No fever. No hemodynamic instability. No hypoxemia. He is hemodynamically stable. BUN is at 50 with a creatinine 0.8 and a sodium level is at 142 and the patient is on normal saline at rate of 75 mL an hour. I'll discuss 4.4 with a hemoglobin of 8.4. He remains nothing by mouth. Unable to take his oral medication as the patient is quite altered mentally and his swallow is not properly at this point in time. On today's evaluation of 06/29/2023, I'm seeing the patient for a follow-up. Agitation or restlessness and delirium is an ongoing issue for this patient. The patient is currently on Precedex at 0.8 mcg/kg/h. This needs to be gradually weaned off. I noticed that he is a is able to communicate more effectively and he was able to mention his date of today. He is not consistently following commands. Neurologic exam is nonfocal at this point in time and the patient is moving all 4 extremities without any limitation. Hemodynamically stable. Is on oxygen at 2 L nasal cannula. He has limited on multiple psychotropic medications on outpatient basis including Seroquel, they are milligrams at bedtime, Effexor XL are 150 mg by mouth twice a day, Wellbutrin SR 150 mg by mouth twice a day and Depakote 1 g at bedtime. Note that those medications have not been started the patient hasn't been able to safely swallow. The patient has a sitter at the bedside. In terms of blood sugar control, the patient was having episodes of hypoglycemia. Based on that, the Levemir insulin was placed on hold and the blood sugars are gradually on the rise and the patient will be started on a lower dose of Levemir for now in addition to a sliding scale coverage. IV fluids are currently running at 75 mL an hour and the patient is on oxygen at 2 L nasal cannula. EEG was done yesterday and it showed no seizure activity. The patient has abnormal EEG with moderate lowering and this is indicative of generalized cerebral dysfunction. Neurology consultation was also performed and that input is appreciated. On today's evaluation of 06/30/2023, seeing the patient for a follow-up. Is currently off Precedex and this medication was discontinued this morning. He is awake and communicating. He remains confused. He is pleasantly confused. He cannot answer all questions appropriately. He continues to try to get out of bed. He was seen by psychiatry yesterday. He was started on Risperdal 1 mg twice a day. He was also started on Effexor XR 150 mg twice a day and Depakote will be discontinued and the patient will be given Prolixin 30 mg IM every 8 hours on an as-needed basis. He is on room air oxygen. No signs of any respiratory distress. BiPAP has been discontinued. He remains on Levemir insulin 10 units daily. He is on Lovenox portably prophylaxis. Labs from today show a white cell count of 5.2 with a hemoglobin of 8.4. Sodium level is at 148 and the patient is currently on normal saline at the rate of 75 mL an hour. His potassium levels at 3.2. The ends of 50 with a creatinine of 0.8. On 07/01/2023, the patient is communicating. Remains somewhat confused. He is on room air oxygen. Moving all 4 extremities. He has generalized global weakness in all 4 extremities. Mental status is still cloudy and the patient is alert and oriented 1 only. No focal neurological deficits. No headaches. No seizure activity. He was seen by psychiatry. The patient is currently on Prolixin 3 mg IM every 8 hours. Is being given as needed. Is also on Effexor or X are 150 mg by mouth twice a day and Risperdal 1 mg twice a day. Noted the patient has not required Prolixin overnight. The patient is also off Precedex. His blood sugars are on the lower side and the patient is currently on Levemir insulin at 20 units an hour. Otherwise, his condition is stable. Hemodynamically stable. BUN is 11 with a creatinine of 0.7 sodium is 143. The white cell count of 5.4 with a hemoglobin of 7.9. The patient is able to swallow. Patient is currently on IV fluids at half-normal saline with potassium at the rate of 75 mL an hour. Objective - Vital Signs Vital signs: Vital Signs Temp 100.4 F H 07/01/23 06:00 Pulse 67 07/01/23 07:00 Resp 12 07/01/23 07:00 BP 149/76 07/01/23 07:00 Pulse Ox 98 07/01/23 07:00 FiO2 40 06/27/23 11:39 Intake & Output 06/30/23 07/01/23 07/01/23 18:59 06:59 18:59 Intake Total 1807.281 900 210 Output Total 1125 1145 300 Balance 682.281 -245 -90 Weight 87.7 kg 87.1 kg Intake: IV 825 900 150 0.45% NaCl with KCl 20 75 Meq/l 1,000 ml @ 75 mls/ hr IV .BY DURATION HAYDE Rx #:[id number] Mvi, Adult No.4 with Vit 675 900 75 K 10 ml Thiamine 100 mg Folic Acid 1 mg In 0.45% NaCl with KCl 20 Meq/l 1, 000 ml @ 75 mls/hr IV .BY DURATION HAYDE Rx#: [id number] Sodium Chloride 0.9% 1, 150 000 ml @ 75 mls/hr IV . [id number] HAYDE Rx#:[id number] Intake, IV Titration 2.281 Amount Dexmedetomidine/0.9% NaCl 2.281 (Pmx) 400 mcg In Empty Bag 1 bag @ 0.2 MCG/KG/HR 3.856 mls/hr IV .Q24H HAYDE Rx#:[id number] Oral 980 60 Output: Urine 1125 1145 300 Other: Voiding Method Indwelling Catheter Indwelling Catheter # Bowel Movements 1 1 - Exam GENERAL EXAM: Obtunded, 63-year-old white male, sedated in no apparent distres s., The patient remains on a RA HEAD: Normocephalic and atraumatic EYES: Normal reaction of pupils, equal size. NOSE: Clear with pink turbinates. THROAT: No erythema or exudates. NECK: No masses, no JVD. CHEST: No chest wall deformity. LUNGS: Equal air entry with no crackles, wheeze, rhonchi or dullness. No conversational dyspnea or accessory muscle use.. CVS: S1 and S2 normal with no audible murmur, regular rhythm. No extra heart sounds ABDOMEN: No hepatosplenomegaly, active bowel sounds, no guarding or rigidity. SPINE: No scoliosis or deformity SKIN: No rashes CENTRAL NERVOUS SYSTEM: Patient is fairly sedated and obtunded. Depressed DTRs in all 4 extremities. No clonus. EXTREMITIES: Currently in bilateral upper extremities soft restraints. Neurovascular status of upper extremity is intact. There is no peripheral edema, clubbing, or cyanosis. Peripheral pulses are intact. - Labs CBC & Chem 7: 07/01/23 05:36 07/01/23 05:36 Labs: Abnormal Lab Results - Last 24 Hours (Table) 06/30/23 06/30/23 06/30/23 Range/Units 11:02 11:15 12:00 RBC (4.30-5.90) m/uL Hgb (13.0-17.5) gm/dL Hct (39.0-53.0) % Plt Count (150-450) k/uL Chloride (98-107) mmol/L Glucose (74-99) mg/dL POC Glucose (mg/dL) 246 H 297 H (70-110) mg/dL Calcium (8.4-10.2) mg/dL Urine Protein 1+ H (Negative) Urine Glucose (UA) 4+ H (Negative) Urine Ketones 2+ H (Negative) Urine Blood Small H (Negative) Ur Leukocyte Esterase Trace H (Negative) Urine Mucus Occasional H (None) /hpf 06/30/23 06/30/23 07/01/23 Range/Units 16:44 20:34 05:36 RBC 2.51 L (4.30-5.90) m/uL Hgb 7.9 L (13.0-17.5) gm/dL Hct 22.9 L (39.0-53.0) % Plt Count 147 L (150-450) k/uL Chloride (98-107) mmol/L Glucose (74-99) mg/dL POC Glucose (mg/dL) 321 H 274 H (70-110) mg/dL Calcium (8.4-10.2) mg/dL Urine Protein (Negative) Urine Glucose (UA) (Negative) Urine Ketones (Negative) Urine Blood (Negative) Ur Leukocyte Esterase (Negative) Urine Mucus (None) /hpf 07/01/23 07/01/23 07/01/23 Range/Units 05:36 06:42 07:52 RBC (4.30-5.90) m/uL Hgb (13.0-17.5) gm/dL Hct (39.0-53.0) % Plt Count (150-450) k/uL Chloride 114 H (98-107) mmol/L Glucose 47 L* (74-99) mg/dL POC Glucose (mg/dL) 58 L 112 H (70-110) mg/dL Calcium 8.3 L (8.4-10.2) mg/dL Urine Protein (Negative) Urine Glucose (UA) (Negative) Urine Ketones (Negative) Urine Blood (Negative) Ur Leukocyte Esterase (Negative) Urine Mucus (None) /hpf Microbiology - Last 24 Hours (Table) 06/25/23 16:51 Blood Culture - Final Blood Assessment and Plan Assessment: Acute Hyperglycemia, related to mild DHHS. The patient is on Levemir 20 units will for now and cover him only with slight scale coverage. The patient didn't count of hypoglycemia. I would suggest dropping his Levemir dose back to 10 and given 8 units with meals Diabetes mellitus type 2, poorly controlled Altered mental status, likely related to toxic metabolic encephalopathy, secondary to above. CAT scan of the brain showed some chronic white matter changes. No CVA. No seizure activity. The patient is off Precedex patient was given Prolixin 3 mg as needed, he was also started on risperidone 1 mg twice a day and he is also on Effexor. Patient was seen by psychiatry. Poorly controlled diabetes mellitus. The patient will maintain on insulin on outpatient basis and he has been taken Lantus 34 units at bedtime, NovoLog 15 un its at lunch, 25 at breakfast and 28 at supper. 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 No evidence of any stridor. Ultrasound the thyroid showed a right thyroid nodule as discussed. Acute hypoxemic respiratory failure, currently on BiPAP at a pressure of 14/6 cm of water with FiO2 of 40% with a pulse ox of 94% acute kidney injury, no baseline creatinine available, improving and the patient is currently on IV fluids Hypernatremia History of uncontrolled insulin-dependent diabetes mellitus, hemoglobin A1c of 13.6 History of anxiety/depression/bipolar disorder, maintain on a combination of Seroquel, Effexor, Wellbutrin, and Depakote. Coronary artery disease with previous coronary artery bypass surgery Plan: Continue risperidone and Prolixin on an as-needed basis Continue Effexor Currently on room and oxygen half-normal saline at the rate of 75 mL's an hour along with multivitamins Levemir 10 units daily along with a sliding scale coverage She is currently on room air and we'll going to discontinue the BiPAP Chest x-rays not showing any acute abnormalities is clear Neurology consultation has been appreciated. The patient had an EEG that showed moderate encephalopathy. sitter at the bedside She is able to swallow No other active issues.
--- NOTE | 2023-07-01 09:31 | P.PN ---
Subjective Progress Note Date: 06/28/23 Patient was seen for a follow-up. Patient is laying in the bed, still very confused, encephalopathic, delirious, restless. Per sitter was present. Objective - Vital Signs Vital signs: Vital Signs Temp 98.9 F 06/28/23 16:00 Pulse 69 06/28/23 19:00 Resp 12 06/28/23 19:00 BP 142/64 06/28/23 19:00 Pulse Ox 96 06/28/23 19:00 FiO2 40 06/27/23 11:39 Intake & Output 06/28/23 06/28/23 06/29/23 06:59 18:59 06:59 Intake Total 6204.216 4332.905 75 Output Total 1645 1110 95 Balance 354.634 158.905 -20 Weight 87.4 kg Intake: IV 1800 1125 75 0.45@150 1800 1125 75 Intake, IV Titration 199.634 143.905 Amount Dexmedetomidine/0.9% NaCl 199.634 143.905 (Pmx) 400 mcg In Empty Bag 1 bag @ 0.2 MCG/KG/HR 3.856 mls/hr IV .Q24H HAYDE Rx#:[id number] Output: Urine 1645 1110 95 Other: Voiding Method Indwelling Catheter Indwelling Catheter # Bowel Movements 1 - Exam Patient continues to be very confused, patient is laying in the bed, with safety lap belt in place. Sitter was present. No seizures reported. Patient mumbles, does not make intelligible speech. Patient's neck is supple. No meningeal signs. - Labs CBC & Chem 7: 07/01/23 05:36 07/01/23 05:36 Labs: Abnormal Lab Results - Last 24 Hours (Table) 06/27/23 06/28/23 06/28/23 Range/Units 20:09 00:01 06:16 RBC (4.30-5.90) m/uL Hgb (13.0-17.5) gm/dL Hct (39.0-53.0) % Plt Count (150-450) k/uL Chloride (98-107) mmol/L Glucose (74-99) mg/dL POC Glucose (mg/dL) 187 H 137 H 50 L (70-110) mg/dL Calcium (8.4-10.2) mg/dL 06/28/23 06/28/23 06/28/23 Range/Units 06:38 07:09 07:09 RBC 2.59 L (4.30-5.90) m/uL Hgb 8.4 L (13.0-17.5) gm/dL Hct 23.8 L (39.0-53.0) % Plt Count 111 L (150-450) k/uL Chloride 113 H (98-107) mmol/L Glucose 115 H (74-99) mg/dL POC Glucose (mg/dL) 153 H (70-110) mg/dL Calcium 8.3 L (8.4-10.2) mg/dL 06/28/23 Range/Units 16:40 RBC (4.30-5.90) m/uL Hgb (13.0-17.5) gm/dL Hct (39.0-53.0) % Plt Count (150-450) k/uL Chloride (98-107) mmol/L Glucose (74-99) mg/dL POC Glucose (mg/dL) 178 H (70-110) mg/dL Calcium (8.4-10.2) mg/dL Microbiology - Last 24 Hours (Table) 06/25/23 16:51 Blood Culture - Preliminary Blood Assessment and Plan Assessment: * Altered mental status, likely due to toxic metabolic encephalopathy * Diabetic HHS versus mild DKA, improving. 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 * Acute kidney injury, now resolved * Hypernatremia, now resolved * History of psychiatric disorder, on Seroquel, Effexor, Wellbutrin and Depakote. * CAD with history of bypass surgery * Previous history of alcoholism Plan: * Patient is clearly encephalopathic, delirious, very restless. Patient's examination is nonfocal. CT head showed no acute process. * EEG was abnormal due to background slowing of moderate degree. This is suggestive of generalized cerebral dysfunction as can be seen with toxic metabolic encephalopathy or related to diffuse structural brain abnormality. Clinical correlation is recommended. No epileptiform activity was seen. * Management of other medical conditions as per IM/critical care. * Neurology will follow clinically.
--- NOTE | 2023-07-01 09:36 | P.PN ---
Subjective Progress Note Date: 06/29/23 Patient was seen for a follow-up. Patient is laying in the bed, still very confused, encephalopathic, delirious, restless. Sitter was present. Patient is almost naked. He is restless, thrashing in the bed. Patient is currently on Precedex 0.8 mcg/kg/h. Patient is slightly communicating better. He is able to make a few words, which are very clear. He knows his name. Able to follow some directions and directed. Objective - Vital Signs Vital signs: Vital Signs Temp 100.4 F H 07/01/23 06:00 Pulse 67 07/01/23 07:00 Resp 12 07/01/23 07:00 BP 149/76 07/01/23 07:00 Pulse Ox 98 07/01/23 07:00 FiO2 40 06/27/23 11:39 Intake & Output 06/30/23 07/01/23 07/01/23 18:59 06:59 18:59 Intake Total 1807.281 900 210 Output Total 1125 1145 300 Balance 682.281 -245 -90 Weight 87.7 kg 87.1 kg Intake: IV 825 900 150 0.45% NaCl with KCl 20 75 Meq/l 1,000 ml @ 75 mls/ hr IV .BY DURATION HAYDE Rx #:[id number] Mvi, Adult No.4 with Vit 675 900 75 K 10 ml Thiamine 100 mg Folic Acid 1 mg In 0.45% NaCl with KCl 20 Meq/l 1, 000 ml @ 75 mls/hr IV .BY DURATION HAYDE Rx#: [id number] Sodium Chloride 0.9% 1, 150 000 ml @ 75 mls/hr IV . [id number] HAYDE Rx#:[id number] Intake, IV Titration 2.281 Amount Dexmedetomidine/0.9% NaCl 2.281 (Pmx) 400 mcg In Empty Bag 1 bag @ 0.2 MCG/KG/HR 3.856 mls/hr IV .Q24H HAYDE Rx#:[id number] Oral 980 60 Output: Urine 1125 1145 300 Other: Voiding Method Indwelling Catheter Indwelling Catheter # Bowel Movements 1 1 - Exam Patient continues to be very confused, patient is laying in the bed, with safety lap belt in place. Sitter was present. Patient is currently on Precedex. No seizures reported. Patient mumbles, but his speech is slightly better. Slightly more intelligible speech, knows his name. Saying some words, which are clear and meaningful. Mouth is dry. Still very restless.neck is supple. No meningeal signs. - Labs CBC & Chem 7: 07/01/23 05:36 07/01/23 05:36 Labs: Abnormal Lab Results - Last 24 Hours (Table) 06/30/23 06/30/23 06/30/23 Range/Units 11:02 11:15 12:00 RBC (4.30-5.90) m/uL Hgb (13.0-17.5) gm/dL Hct (39.0-53.0) % Plt Count (150-450) k/uL Chloride (98-107) mmol/L Glucose (74-99) mg/dL POC Glucose (mg/dL) 246 H 297 H (70-110) mg/dL Calcium (8.4-10.2) mg/dL Urine Protein 1+ H (Negative) Urine Glucose (UA) 4+ H (Negative) Urine Ketones 2+ H (Negative) Urine Blood Small H (Negative) Ur Leukocyte Esterase Trace H (Negative) Urine Mucus Occasional H (None) /hpf 06/30/23 06/30/23 07/01/23 Range/Units 16:44 20:34 05:36 RBC 2.51 L (4.30-5.90) m/uL Hgb 7.9 L (13.0-17.5) gm/dL Hct 22.9 L (39.0-53.0) % Plt Count 147 L (150-450) k/uL Chloride (98-107) mmol/L Glucose (74-99) mg/dL POC Glucose (mg/dL) 321 H 274 H (70-110) mg/dL Calcium (8.4-10.2) mg/dL Urine Protein (Negative) Urine Glucose (UA) (Negative) Urine Ketones (Negative) Urine Blood (Negative) Ur Leukocyte Esterase (Negative) Urine Mucus (None) /hpf 07/01/23 07/01/23 07/01/23 Range/Units 05:36 06:42 07:52 RBC (4.30-5.90) m/uL Hgb (13.0-17.5) gm/dL Hct (39.0-53.0) % Plt Count (150-450) k/uL Chloride 114 H (98-107) mmol/L Glucose 47 L* (74-99) mg/dL POC Glucose (mg/dL) 58 L 112 H (70-110) mg/dL Calcium 8.3 L (8.4-10.2) mg/dL Urine Protein (Negative) Urine Glucose (UA) (Negative) Urine Ketones (Negative) Urine Blood (Negative) Ur Leukocyte Esterase (Negative) Urine Mucus (None) /hpf Microbiology - Last 24 Hours (Table) 06/25/23 16:51 Blood Culture - Final Blood Assessment and Plan Assessment: * Altered mental status, likely due to toxic metabolic encephalopathy * Diabetic HHS versus mild DKA, improving. 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 * Acute kidney injury, now resolved * Hypernatremia, now resolved * History of psychiatric disorder, on Seroquel, Effexor, Wellbutrin and Depakote. * CAD with history of bypass surgery * Previous history of alcoholism Plan: * Patient's encephalopathy is improving. He is still delirious, very restless. His mentation is slightly better as compared to yesterday. He is talking with some meaningful sentences and words. Patient's examination is nonfocal. CT head showed no acute process. * EEG was abnormal due to background slowing of moderate degree. This is suggestive of generalized cerebral dysfunction as can be seen with toxic metabolic encephalopathy or related to diffuse structural brain abnormality. Clinical correlation is recommended. No epileptiform activity was seen. * Management of other medical conditions as per IM/critical care. * We will try to obtain collateral history from patient's family. * Neurology will follow clinically.
[2023-07-01] MEDS ORDERED: POTASSIUM CHLORIDE ER 20 MEQ TAB.ER PO STA (09:44)
--- NOTE | 2023-07-01 09:52 | P.PN ---
Subjective Progress Note Date: 06/30/23 Patient was seen for a follow-up. Patient's was also present today. She mentions that patient presented to the hospital with 1 week history of slow disintegration. From Monday to Monday, 06/23/2023 through 06/24/2023, patient would nonstop drink water and would go to the bathroom. Slowly his mentation change, he could not hold himself up, not make sense, was "out of it". He even could not recognize his name. Patient at first was [facility] on 06/24/2023 beers she was told that "he passed a kidney stone". He was then transferred to [facility]. She mentions that patient has not drank alcohol for last 1 year. No history of drugs. At present patient is doing much better today. He denies any headache, any nausea or vomiting. He admits to having some stomach upset. Patient's mentions that he has been diagnosed with mild dementia, bipolar 1 disorder, and ADD. She states that he has some short-term memory loss, very mild/early stage dementia. He also has neuropathy and therefore is unsteady on his gait. His hips bother him when he walks. There is no previous history of seizures. Objective - Vital Signs Vital signs: Vital Signs Temp 100.4 F H 07/01/23 06:00 Pulse 67 07/01/23 07:00 Resp 12 07/01/23 07:00 BP 149/76 07/01/23 07:00 Pulse Ox 98 07/01/23 07:00 FiO2 40 06/27/23 11:39 Intake & Output 06/30/23 07/01/23 07/01/23 18:59 06:59 18:59 Intake Total 1807.281 900 210 Output Total 1125 1145 300 Balance 682.281 -245 -90 Weight 87.7 kg 87.1 kg Intake: IV 825 900 150 0.45% NaCl with KCl 20 75 Meq/l 1,000 ml @ 75 mls/ hr IV .BY DURATION [facility] Rx #:[id number] Mvi, Adult No.4 with Vit 675 900 75 K 10 ml Thiamine 100 mg Folic Acid 1 mg In 0.45% NaCl with KCl 20 Meq/l 1, 000 ml @ 75 mls/hr IV .BY DURATION [facility] Rx#: [id number] Sodium Chloride 0.9% 1, 150 000 ml @ 75 mls/hr IV . [id number] [facility] Rx#:[id number] Intake, IV Titration 2.281 Amount Dexmedetomidine/0.9% NaCl 2.281 (Pmx) 400 mcg In Empty Bag 1 bag @ 0.2 MCG/KG/HR 3.856 mls/hr IV .Q24H [facility] Rx#:[id number] Oral 980 60 Output: Urine 1125 1145 300 Other: Voiding Method Indwelling Catheter Indwelling Catheter # Bowel Movements 1 1 - Exam Patient is much more alert and awake. He knows his name, his name, his date of but does not know the president. His speech is much more clear, talking in full sentences. He denies headache clearly. Speech and language functions appears normal. He can name. Also can repeat. Face is symmetric. Visual palmer full. Patient did not cooperate well with motor strength testing. His neck is supple. No meningeal signs. - Labs CBC & Chem 7: 07/01/23 05:36 07/01/23 05:36 Labs: Abnormal Lab Results - Last 24 Hours (Table) 06/30/23 06/30/23 06/30/23 Range/Units 11:02 11:15 12:00 RBC (4.30-5.90) m/uL Hgb (13.0-17.5) gm/dL Hct (39.0-53.0) % Plt Count (150-450) k/uL Chloride (98-107) mmol/L Glucose (74-99) mg/dL POC Glucose (mg/dL) 246 H 297 H (70-110) mg/dL Calcium (8.4-10.2) mg/dL Urine Protein 1+ H (Negative) Urine Glucose (UA) 4+ H (Negative) Urine Ketones 2+ H (Negative) Urine Blood Small H (Negative) Ur Leukocyte Esterase Trace H (Negative) Urine Mucus Occasional H (None) /hpf 06/30/23 06/30/23 07/01/23 Range/Units 16:44 20:34 05:36 RBC 2.51 L (4.30-5.90) m/uL Hgb 7.9 L (13.0-17.5) gm/dL Hct 22.9 L (39.0-53.0) % Plt Count 147 L (150-450) k/uL Chloride (98-107) mmol/L Glucose (74-99) mg/dL POC Glucose (mg/dL) 321 H 274 H (70-110) mg/dL Calcium (8.4-10.2) mg/dL Urine Protein (Negative) Urine Glucose (UA) (Negative) Urine Ketones (Negative) Urine Blood (Negative) Ur Leukocyte Esterase (Negative) Urine Mucus (None) /hpf 07/01/23 07/01/23 07/01/23 Range/Units 05:36 06:42 07:52 RBC (4.30-5.90) m/uL Hgb (13.0-17.5) gm/dL Hct (39.0-53.0) % Plt Count (150-450) k/uL Chloride 114 H (98-107) mmol/L Glucose 47 L* (74-99) mg/dL POC Glucose (mg/dL) 58 L 112 H (70-110) mg/dL Calcium 8.3 L (8.4-10.2) mg/dL Urine Protein (Negative) Urine Glucose (UA) (Negative) Urine Ketones (Negative) Urine Blood (Negative) Ur Leukocyte Esterase (Negative) Urine Mucus (None) /hpf Microbiology - Last 24 Hours (Table) 06/25/23 16:51 Blood Culture - Final Blood Assessment and Plan Assessment: * Altered mental status, likely due to toxic metabolic encephalopathy. Patient's mentation much improved. * High fevers, unclear etiology. Patient denies headache. His mentation is improving. Neck is supple. No clinical evidence of meningitis encephalitis. Suspect some other cause of fever. * Diabetic HHS versus mild DKA, improving. 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 * Acute kidney injury, now resolved * Hypernatremia, now resolved * History of psychiatric disorder, on Seroquel, Effexor, Wellbutrin and Depakote. * CAD with history of bypass surgery * Previous history of alcoholism * Mild cognitive impairment/early dementia Plan: * Patient's encephalopathy has much improved. Patient denies any headache, no meningeal signs. No clinical evidence of meningitis encephalitis. * Patient's fever is of some alternate cause that needs to be identified. Patient's urine shows trace leukocyte esterase. Discussed with primary physician, who was concerned about lumbar puncture. Based upon examination and clinical improvement, no definitive indication for lumbar puncture. Primary physician suspecting pulmonary source. Chest x-ray was done, which revealed coarsened interstitium could be in the basis of mild interstitial pneumonitis or bronchitis. Mild venous congestion less likely, but not excluded. Patient currently not on any antibiotics. Suggest infectious disease consultation. * Patient's examination is nonfocal. CT head showed no acute process. * EEG was abnormal due to background slowing of moderate degree. This is suggestive of generalized cerebral dysfunction as can be seen with toxic metabolic encephalopathy or related to diffuse structural brain abnormality. Clinical correlation is recommended. No epileptiform activity was seen. * Management of other medical conditions as per IM/critical care. * Discussed with patient's in detail. Also with primary physician.
--- NOTE | 2023-07-01 11:05 | P.PN ---
Subjective Progress Note Date: 07/01/23 Hospital Course: 63-year-old male with no well known past medical history presented from outside hospital for hyperglycemia, altered mentation. On initial presentation, his WBC was 10.4, hemoglobin 9.5, anion gap 16, bicarb 24, BUN 85, creatinine 2.9, glucose 650, pH 7.358, pCO2 37, lactate 1.6, respiratory viral panel negative, troponin negative, acetone minimal, UA negative. EKG shows sinus rhythm. CT head showed no acute process. CT abdomen showed constipation and distended bladder. CT neck showed right lobe thyroid mass. Per records, patient received 2 mg of IV Haldol, 0.5 mg of IV Ativan as well as was started on insulin drip. Per report, patient received 5 mg of IV Versed on the way from other hospital. In the ED at our facility, patient saturating 95% on 3 L, rest of the vitals s igns were otherwise normal limits. Point of care glucose was 532. Labs at our facility showed WBC of 11.9, hemoglobin of 10.4, BUN 90, creatinine on 08, glucose of 495, mildly elevated ALT of 68, ALP 153. Patient being admitted for acute metabolic encephalopathy in the setting of HHS versus mild DKA. Patient continued to remain agitated requiring restraints. He was transferred to medical ICU. He remains agitated. Currently on Precedex drip. Subjective: Patient seen and examined at bedside. No acute events overnight. Restraints in place. Sitter at bedside. He is interactive to voice, and appears significantly improved in terms of mentation, but not back to normal. Gen: awake, alert, confused HEENT: normocephalic, atraumatic, good hearing acuity, moist mucous membranes Resp: good air exchange, breathing comfortably with no accessory muscle use CVS: good distal perfusion x 4, GI: soft, NTTP, ND : no SPT, no CVAT, freeman catheter not present MSK: no pitting edema, no clubbing Neuro: non-focal, moving all extremities Assessment and Plan: Acute metabolic encephalopathy with agitation Fevers History of psychosis - BCx: NGTD at 72 hours - repeat BCx, UA, CXR given fever of 101.2 today - EEG reviewed and c/w metabolic encephalopathy - Discussed with neurology, no LP at this time due to improvement of mentation - Cephiad 4-plex is pending - psychiatry consult is appreciated, their recs 06/30 (discussed): -prolixin IM q8h -risperdal 1mg BID -depakote, effexor continued - serum osmol is 310, but no gap is present - now on PPN for nutrition Uncontrolled type 2 diabetes, A1c 13.6 HHS versus mild DKA, resolved - insulin gtt d/c'd, transitioned to SQ levemir 15U, aspart SSI AC-TID - continue NS @ 75cc/hr Anemia, normocytic Thrombocytopenia - unclear etiology; B12/Folate are high - Timing of Plt drop (92 on 06/29, 187 on 06/25) is not consistent with HIT - will d/c SQ heparin and replace with lovenox 40 SQ daily - reticulocyte count, LDH, haptoglobin ordered -retic count% is 1.6: calculated index is 0.46 c/w hypoproliferative state -LDH mildly elevated, haptoglobin is 93 not c/w hemolysis Thyroid mass -TSH wnl -outpatient PCP f/u [facility] Urinary retention - resolved s/p freeman catheter insertion and IVF Dyslipidemia - atorvastatin 80mg HS DVT ppx: Subcu enoxaparin Code status: Full code Anticipated discharge place: Pending clinical course Anticipated discharge time: Pending clinical course Objective - Vital Signs Vital signs: Vital Signs Temp 99.0 F 07/01/23 08:00 Pulse 60 07/01/23 10:00 Resp 10 L 07/01/23 10:00 BP 145/95 07/01/23 10:00 Pulse Ox 94 L 07/01/23 09:00 FiO2 40 06/27/23 11:39 Intake & Output 06/30/23 07/01/23 07/01/23 18:59 06:59 18:59 Intake Total 1807.281 900 210 Output Total 1125 1145 300 Balance 682.281 -245 -90 Weight 87.7 kg 87.1 kg Intake: IV 825 900 150 0.45% NaCl with KCl 20 75 Meq/l 1,000 ml @ 75 mls/ hr IV .BY DURATION [facility] Rx #:[id number] Mvi, Adult No.4 with Vit 675 900 75 K 10 ml Thiamine 100 mg Folic Acid 1 mg In 0.45% NaCl with KCl 20 Meq/l 1, 000 ml @ 75 mls/hr IV .BY DURATION [facility] Rx#: [id number] Sodium Chloride 0.9% 1, 150 000 ml @ 75 mls/hr IV . [id number] [facility] Rx#:[id number] Intake, IV Titration 2.281 Amount Dexmedetomidine/0.9% NaCl 2.281 (Pmx) 400 mcg In Empty Bag 1 bag @ 0.2 MCG/KG/HR 3.856 mls/hr IV .Q24H [facility] Rx#:[id number] Oral 980 60 Output: Urine 1125 1145 300 Other: Voiding Method Indwelling Catheter Indwelling Catheter Indwelling Catheter # Bowel Movements 1 1 - Labs CBC & Chem 7: 07/01/23 05:36 07/01/23 05:36 Labs: Abnormal Lab Results - Last 24 Hours (Table) 06/30/23 06/30/23 06/30/23 Range/Units 11:02 11:15 12:00 RBC (4.30-5.90) m/uL Hgb (13.0-17.5) gm/dL Hct (39.0-53.0) % Plt Count (150-450) k/uL Chloride (98-107) mmol/L Glucose (74-99) mg/dL POC Glucose (mg/dL) 246 H 297 H (70-110) mg/dL Calcium (8.4-10.2) mg/dL Urine Protein 1+ H (Negative) Urine Glucose (UA) 4+ H (Negative) Urine Ketones 2+ H (Negative) Urine Blood Small H (Negative) Ur Leukocyte Esterase Trace H (Negative) Urine Mucus Occasional H (None) /hpf 06/30/23 06/30/23 07/01/23 Range/Units 16:44 20:34 05:36 RBC 2.51 L (4.30-5.90) m/uL Hgb 7.9 L (13.0-17.5) gm/dL Hct 22.9 L (39.0-53.0) % Plt Count 147 L (150-450) k/uL Chloride (98-107) mmol/L Glucose (74-99) mg/dL POC Glucose (mg/dL) 321 H 274 H (70-110) mg/dL Calcium (8.4-10.2) mg/dL Urine Protein (Negative) Urine Glucose (UA) (Negative) Urine Ketones (Negative) Urine Blood (Negative) Ur Leukocyte Esterase (Negative) Urine Mucus (None) /hpf 07/01/23 07/01/23 07/01/23 Range/Units 05:36 06:42 07:52 RBC (4.30-5.90) m/uL Hgb (13.0-17.5) gm/dL Hct (39.0-53.0) % Plt Count (150-450) k/uL Chloride 114 H (98-107) mmol/L Glucose 47 L* (74-99) mg/dL POC Glucose (mg/dL) 58 L 112 H (70-110) mg/dL Calcium 8.3 L (8.4-10.2) mg/dL Urine Protein (Negative) Urine Glucose (UA) (Negative) Urine Ketones (Negative) Urine Blood (Negative) Ur Leukocyte Esterase (Negative) Urine Mucus (None) /hpf Microbiology - Last 24 Hours (Table) 06/25/23 16:51 Blood Culture - Final Blood
[2023-07-01 11:12] LABS: Glucose,Whole Blood 186 mg/dL (70-110)
[2023-07-01] MEDS: [UNRECOGNIZED DRUG - REMARK] IV SCH ×4 (13:58)
[2023-07-01 16:55] LABS: Glucose,Whole Blood 185 mg/dL (70-110)
[2023-07-01] MEDS: ASPIRIN 81 MG PO SCH (17:53)
[2023-07-01] MEDS ORDERED: INSULIN DETEMIR (LEVEMIR) 100 UNIT/ML SYR SQ SCH (21:00)
[2023-07-01] MEDS: MELATONIN 5 MG TABLET PO SCH (21:34)
[2023-07-01] MEDS: INSULIN DETEMIR (LEVEMIR) 100 UNIT/ML SYR SQ SCH (21:34)
[2023-07-01] MEDS: ATORVASTATIN 80 MG TAB PO SCH (21:35)
[2023-07-01] MEDS: DIVALPROEX ER 500 MG TAB.ER.24H PO SCH (21:35)
[2023-07-01] MEDS: traZODone HCL 50 MG TAB PO PRN (21:49)
[2023-07-02] MEDS: SODIUM CHLORIDE 0.9% 1,000 ML IV SCH (00:14)
[2023-07-02] MEDS: [UNRECOGNIZED DRUG - REMARK] IV SCH ×8 (04:30→18:15)
[2023-07-02 04:45] LABS: HCT 25.1 % (39.0-53.0); HGB 8.2 gm/dL (13.0-17.5); MCH 30.5 pg (25.0-35.0); MCHC 32.7 g/dL (31.0-37.0); MCV 93.3 fL (80.0-100.0); Mean Platelet Volume 8.8; Platelet Count 168 k/uL (150-450); RBC 2.69 m/uL (4.30-5.90); RDW 13.4 % (11.5-15.5); WBC 4.3 k/uL (3.8-10.6)
[2023-07-02 04:52] LABS: Potassium 3.9 mmol/L (3.5-5.1)
[2023-07-02 04:53] LABS: African American GFR (CKD) >90 (>60 ml/min/1.73 sqM); Anion Gap 6 mmol/L; Blood Urea Nitrogen 11 mg/dL (9-20); Calcium 8.5 mg/dL (8.4-10.2); Carbon Dioxide 22 mmol/L (22-30); Chloride 111 mmol/L (98-107); Glucose 184 mg/dL (74-99); Non-African American GFR(CKD) >90 (>60 ml/min/1.73 sqM); Sodium 139 mmol/L (137-145)
[2023-07-02 06:40] LABS: Glucose,Whole Blood 194 mg/dL (70-110)
[2023-07-02] MEDS: INSULIN ASPART (NovoLOG) 100 UNIT/ML VIAL SQ SCH ×3 (07:23→16:47)
--- NOTE | 2023-07-02 09:59 | P.PN ---
Subjective Progress Note Date: 07/02/23 Hospital Course: 63-year-old male with no well known past medical history presented from outside hospital for hyperglycemia, altered mentation. On initial presentation, his WBC was 10.4, hemoglobin 9.5, anion gap 16, bicarb 24, BUN 85, creatinine 2.9, glucose 650, pH 7.358, pCO2 37, lactate 1.6, respiratory viral panel negative, troponin negative, acetone minimal, UA negative. EKG shows sinus rhythm. CT head showed no acute process. CT abdomen showed constipation and distended bladder. CT neck showed right lobe thyroid mass. Per records, patient received 2 mg of IV Haldol, 0.5 mg of IV Ativan as well as was started on insulin drip. Per report, patient received 5 mg of IV Versed on the way from other hospital. In the ED at our facility, patient saturating 95% on 3 L, rest of the vitals s igns were otherwise normal limits. Point of care glucose was 532. Labs at our facility showed WBC of 11.9, hemoglobin of 10.4, BUN 90, creatinine on 08, glucose of 495, mildly elevated ALT of 68, ALP 153. Patient being admitted for acute metabolic encephalopathy in the setting of HHS versus mild DKA. Patient continued to remain agitated requiring restraints. He was transferred to medical ICU. He remains agitated. Currently on Precedex drip. Subjective: Patient has no new complaints today. Gen: awake, alert, confused HEENT: normocephalic, atraumatic, good hearing acuity, moist mucous membranes Resp: good air exchange, breathing comfortably with no accessory muscle use CVS: good distal perfusion x 4, GI: soft, NTTP, ND : no SPT, no CVAT, freeman catheter not present MSK: no pitting edema, no clubbing Neuro: non-focal, moving all extremities Assessment and Plan: Acute metabolic encephalopathy with agitation, improving Fevers, improved History of psychosis - BCx: 06/25 - NGTD at 5 days; 06/30 - NGTD at 24 hours - repeat BCx, UA, CXR given fever of 101.2 today - EEG reviewed and c/w metabolic encephalopathy - Discussed with neurology, no LP at this time due to improvement of mentation - Chest x-ray personally interpreted from 06/30, appears to have nodular infiltrate bilaterally concerning for viral pneumonia, Cephiad 4-plex is negative, pro-calcitonin is 0.25 -Continue to hold off on antibiotics at this time - psychiatry consult is appreciated, their recs 06/30 (discussed): -prolixin IM q8h -risperdal 1mg BID -depakote, effexor continued - now on PPN for nutrition Uncontrolled type 2 diabetes, A1c 13.6 HHS versus mild DKA, resolved - insulin gtt d/c'd, transitioned to SQ levemir 15U, aspart SSI AC-TID - continue NS @ 75cc/hr Anemia, normocytic Thrombocytopenia - unclear etiology; B12/Folate are high - Timing of Plt drop (92 on 06/29, 187 on 06/25) is not consistent with HIT - will d/c SQ heparin and replace with lovenox 40 SQ daily - reticulocyte count, LDH, haptoglobin ordered -retic count% is 1.6: calculated index is 0.46 c/w hypoproliferative state -LDH mildly elevated, haptoglobin is 93 not c/w hemolysis Thyroid mass -TSH wnl -outpatient PCP f/u [facility] Urinary retention - resolved s/p freeman catheter insertion and IVF Dyslipidemia - atorvastatin 80mg HS DVT ppx: Subcu enoxaparin Code status: Full code Anticipated discharge place: Pending clinical course Anticipated discharge time: Pending clinical course Objective - Vital Signs Vital signs: Vital Signs Temp 99.6 F 07/02/23 02:00 Pulse 62 07/02/23 02:00 Resp 15 07/02/23 02:00 BP 138/67 07/02/23 02:00 Pulse Ox 98 07/02/23 02:00 FiO2 40 06/27/23 11:39 Intake & Output 07/01/23 07/02/23 07/02/23 18:59 06:59 18:59 Intake Total 1210 1650 Output Total 300 2700 Balance 910 -1050 Weight 87 kg Intake: IV 150 1650 0.45% NaCl with KCl 20 75 1650 Meq/l 1,000 ml @ 75 mls/ hr IV .BY DURATION [facility] Rx #:[id number] Mvi, Adult No.4 with Vit 75 K 10 ml Thiamine 100 mg Folic Acid 1 mg In 0.45% NaCl with KCl 20 Meq/l 1, 000 ml @ 75 mls/hr IV .BY DURATION [facility] Rx#: [id number] Intake, IV Titration 1000 Amount 0.45% NaCl with KCl 20 1000 Meq/l 1,000 ml @ 75 mls/ hr IV .BY DURATION [facility] Rx #:[id number] Oral 60 Output: Urine 300 2700 Other: Voiding Method Indwelling Catheter Indwelling Catheter Indwelling Catheter # Bowel Movements 1 3 - Labs CBC & Chem 7: 07/02/23 04:04 07/02/23 04:04 Labs: Abnormal Lab Results - Last 24 Hours (Table) 07/01/23 07/01/23 07/01/23 Range/Units 05:36 11:10 16:53 RBC (4.30-5.90) m/uL Hgb (13.0-17.5) gm/dL Hct (39.0-53.0) % Chloride (98-107) mmol/L Glucose (74-99) mg/dL POC Glucose (mg/dL) 186 H 185 H (70-110) mg/dL Procalcitonin 0.25 H (0.02-0.09) ng/mL 07/02/23 07/02/23 07/02/23 Range/Units 04:04 04:04 06:39 RBC 2.69 L (4.30-5.90) m/uL Hgb 8.2 L (13.0-17.5) gm/dL Hct 25.1 L (39.0-53.0) % Chloride 111 H (98-107) mmol/L Glucose 184 H (74-99) mg/dL POC Glucose (mg/dL) 194 H (70-110) mg/dL Procalcitonin (0.02-0.09) ng/mL Microbiology - Last 24 Hours (Table) 06/30/23 12:23 Blood Culture - Preliminary Blood
[2023-07-02] MEDS: PANTOPRAZOLE 40 MG/10 ML VIAL IVP SCH (10:07)
[2023-07-02] MEDS: VENLAFAXINE HCL ER 150 MG CAP PO SCH ×2 (10:07→14:11)
[2023-07-02] MEDS: ISOSORBIDE MONONITRATE ER 30 MG TAB.ER.24H PO SCH (10:07)
[2023-07-02] MEDS: THIAMINE 100 MG/ML 2 ML VIAL IVP SCH (10:08)
[2023-07-02] MEDS: EZETIMIBE 10 MG TAB PO SCH (10:08)
[2023-07-02] MEDS: PROPRANOLOL 40 MG TAB PO SCH ×2 (10:08→19:54)
[2023-07-02] MEDS: risperiDONE 2 MG TAB PO SCH ×2 (10:09→19:54)
[2023-07-02 11:34] LABS: Glucose,Whole Blood 205 mg/dL (70-110)
--- NOTE | 2023-07-02 11:56 | P.PN ---
Subjective Progress Note Date: 07/02/23 I am seeing this patient in new consultation today 06/26/2023 in the intensive care unit after the patient was transferred from [facility] for altered mental status and high blood sugars. Patient is a 63-year-old white male whose past medical history is largely unknown. He is currently confused and obtunded, unable to answer questions. Apparently, patient presented to [facility] yesterday he was found to be combative and confused. His blood sugars were also found to be severely high at 808 g/dL. Serum CO2 was 20, anion gap 23. Ketones were mildly positive. Possible in mild DKA vs HHS. Patient did have an initial workup, including a brain CT which did not show any acute intracranial process. Urine drug screen also negative. EtOH level at our facility was less than 10. A CT of the chest done at the outside facility reported a mass within the superior mediastinum favoring to be from the right lobe of the thyroid. There were also postsurgical open-heart changes, and dependent atelectasis without acute infiltrates. Upon transfer, the patient became combative and agitated. He required restraints, multiple doses of Ativan, and a dose of Zyprexa. Patient was then admitted to the intensive care unit, and started on Precedex which is currently infusing at 0.12 mcg/kg per hour. He is fairly sedated on this dose, and it could be weaned down. He does not follow commands, briefly opens his eyes to painful stimuli. He is currently on 3 L nasal cannula. SpO2 was in reading at 98%. Insulin is currently infusing at 12.7 units per hour. Most recent BMP at our facility shows a sodium of 150, potassium 4, chloride 112, serum bicarb of 29, anion gap 9, BUN 72, creatinine 1.76, and blood glucose is down to 166. D5W/half-normal saline with 20 meq K is infusing at 150 ML's per hour. Patient's hemoglobin A1c is 13.6. LFTs are mildly elevated. TSH level was 1.24. CBC done in our facility shows a WBC count 11.9, hemoglobin 10.4, hematocrit 29, platelets 187. Urinalysis not significant for urinary tract infection. He is afebrile. Vital signs are stabl e. He will be monitored in the intensive care unit. On 06/27/2023, the patient is being seen for a follow-up. The patient was transferred to us for altered mental status and hyperglycemia related to hyperosmolar nonketotic state. The patient remains in the intensive care unit. The patient remains on a BiPAP at pressure 14/6 cm of water with an FiO2 of 40%. Overnight, he was quite restless and agitated. He remains on 2 point restraints. He was given a total of 5 mg of Ativan overnight. This morning, is quite comfortable and his synchronous with the BiPAP machine. He remains encephalopathic for now. Precedex is also running at 0.7 mcg/kg/h to control his agitation. CAT scan of the brain showed some chronic microvascular changes. The patient remains on IV fluids. He is currently on half-normal saline at the rate of 150 mL an hour. Is also on an insulin drip at 3 units an hour. Blood sugars under better control for now. In terms of his blood work, no new labs are available from today. Most recent labs are from yesterday and morning labs are still pending for now. His chest x-ray showed no acute abnormalities. Ultrasound the kidneys showed no evidence of any hydronephrosis. There was a concern of a neck/thyroid mass and for that reason, the patient was given an u ltrasound of the thyroid that showed a a 2.2 x 2.5 x 2.0 cm mixed cystic and solid nodule on the right. Hemodynamically stable. Cardiac rhythm is sinus. No other significant issues overnight. On today's evaluation of 06/28/2023, the patient is restless and is thrashing in bed. Nevertheless, he seems to be more alert and awake compared to yesterday. His opening up his eyes and is trying to get out of bed. He has a sitter at the bedside. He remains on Precedex which is running at 0.9 microvascular kilogram per minutes. He was also given Ativan overnight and he was getting frequent doses. The patient is currently off BiPAP. He was taken off BiPAP yesterday midday and he was placed on nasal cannula at 2 L. No signs of any respiratory distress. No neck stiffness. No fever. No hemodynamic instability. No hypoxemia. He is hemodynamically stable. BUN is at 50 with a creatinine 0.8 and a sodium level is at 142 and the patient is on normal saline at rate of 75 mL an hour. I'll discuss 4.4 with a hemoglobin of 8.4. He remains nothing by mouth. Unable to take his oral medication as the patient is quite altered mentally and his swallow is not properly at this point in time. On today's evaluation of 06/29/2023, I'm seeing the patient for a follow-up. Agitation or restlessness and delirium is an ongoing issue for this patient. The patient is currently on Precedex at 0.8 mcg/kg/h. This needs to be gradually weaned off. I noticed that he is a is able to communicate more effectively and he was able to mention his date of today. He is not consistently following commands. Neurologic exam is nonfocal at this point in time and the patient is moving all 4 extremities without any limitation. Hemodynamically stable. Is on oxygen at 2 L nasal cannula. He has limited on multiple psychotropic medications on outpatient basis including Seroquel, they are milligrams at bedtime, Effexor XL are 150 mg by mouth twice a day, Wellbutrin SR 150 mg by mouth twice a day and Depakote 1 g at bedtime. Note that those medications have not been started the patient hasn't been able to safely swallow. The patient has a sitter at the bedside. In terms of blood sugar control, the patient was having episodes of hypoglycemia. Based on that, the Levemir insulin was placed on hold and the blood sugars are gradually on the rise and the patient will be started on a lower dose of Levemir for now in addition to a sliding scale coverage. IV fluids are currently running at 75 mL an hour and the patient is on oxygen at 2 L nasal cannula. EEG was done yesterday and it showed no seizure activity. The patient has abnormal EEG with moderate lowering and this is indicative of generalized cerebral dysfunction. Neurology consultation was also performed and that input is appreciated. On today's evaluation of 06/30/2023, seeing the patient for a follow-up. Is currently off Precedex and this medication was discontinued this morning. He is awake and communicating. He remains confused. He is pleasantly confused. He cannot answer all questions appropriately. He continues to try to get out of bed. He was seen by psychiatry yesterday. He was started on Risperdal 1 mg twice a day. He was also started on Effexor XR 150 mg twice a day and Depakote will be discontinued and the patient will be given Prolixin 30 mg IM every 8 hours on an as-needed basis. He is on room air oxygen. No signs of any respiratory distress. BiPAP has been discontinued. He remains on Levemir insulin 10 units daily. He is on Lovenox portably prophylaxis. Labs from today show a white cell count of 5.2 with a hemoglobin of 8.4. Sodium level is at 148 and the patient is currently on normal saline at the rate of 75 mL an hour. His potassium levels at 3.2. The ends of 50 with a creatinine of 0.8. On 07/01/2023, the patient is communicating. Remains somewhat confused. He is on room air oxygen. Moving all 4 extremities. He has generalized global weakness in all 4 extremities. Mental status is still cloudy and the patient is alert and oriented 1 only. No focal neurological deficits. No headaches. No seizure activity. He was seen by psychiatry. The patient is currently on Prolixin 3 mg IM every 8 hours. Is being given as needed. Is also on Effexor or X are 150 mg by mouth twice a day and Risperdal 1 mg twice a day. Noted the patient has not required Prolixin overnight. The patient is also off Precedex. His blood sugars are on the lower side and the patient is currently on Levemir insulin at 20 units an hour. Otherwise, his condition is stable. Hemodynamically stable. BUN is 11 with a creatinine of 0.7 sodium is 143. The white cell count of 5.4 with a hemoglobin of 7.9. The patient is able to swallow. Patient is currently on IV fluids at half-normal saline with potassium at the rate of 75 mL an hour. 07/02/2023, the patient is alert and awake and communicating. Episodic confusion. No agitation. No other significant events overnight. Tolerating diet. Is currently on room air oxygen. The patient is currently on Levemir insulin 15 units at bedtime and NovoLog and he is using a sliding scale coverage. He remains on Risperdal 2 mg twice a day in combination with Effexor. Labs from today was noted. BUN is at 11 with a creatinine of 0.7. Sodium level is at 139. The bronchoscope was at 4.3 with a hemoglobin of 8.2. Objective - Vital Signs Vital signs: Vital Signs Temp 99.6 F 07/02/23 02:00 Pulse 62 07/02/23 02:00 Resp 15 07/02/23 02:00 BP 138/67 07/02/23 02:00 Pulse Ox 98 07/02/23 02:00 FiO2 40 06/27/23 11:39 Intake & Output 07/01/23 07/02/23 07/02/23 18:59 06:59 18:59 Intake Total 1210 1650 Output Total 300 2700 Balance 910 -1050 Weight 87 kg Intake: IV 150 1650 0.45% NaCl with KCl 20 75 1650 Meq/l 1,000 ml @ 75 mls/ hr IV .BY DURATION [facility] Rx #:[id number] Mvi, Adult No.4 with Vit 75 K 10 ml Thiamine 100 mg Folic Acid 1 mg In 0.45% NaCl with KCl 20 Meq/l 1, 000 ml @ 75 mls/hr IV .BY DURATION [facility] Rx#: [id number] Intake, IV Titration 1000 Amount 0.45% NaCl with KCl 20 1000 Meq/l 1,000 ml @ 75 mls/ hr IV .BY DURATION [facility] Rx #:[id number] Oral 60 Output: Urine 300 2700 Other: Voiding Method Indwelling Catheter Indwelling Catheter # Bowel Movements 1 3 - Exam GENERAL EXAM: Obtunded, 63-year-old white male, sedated in no apparent distress., The patient remains on a RA HEAD: Normocephalic and atraumatic EYES: Normal reaction of pupils, equal size. NOSE: Clear with pink turbinates. THROAT: No erythema or exudates. NECK: No masses, no JVD. CHEST: No chest wall deformity. LUNGS: Equal air entry with no crackles, wheeze, rhonchi or dullness. No conversational dyspnea or accessory muscle use.. CVS: S1 and S2 normal with no audible murmur, regular rhythm. No extra heart sounds ABDOMEN: No hepatosplenomegaly, active bowel sounds, no guarding or rigidity. SPINE: No scoliosis or deformity SKIN: No rashes CENTRAL NERVOUS SYSTEM: Patient is fairly sedated and obtunded. Depressed DTRs in all 4 extremities. No clonus. EXTREMITIES: Currently in bilateral upper extremities soft restraints. Neurovascular status of upper extremity is intact. There is no peripheral edema, clubbing, or cyanosis. Peripheral pulses are intact. - Labs CBC & Chem 7: 07/02/23 04:04 07/02/23 04:04 Labs: Abnormal Lab Results - Last 24 Hours (Table) 07/01/23 07/01/23 07/01/23 Range/Units 05:36 11:10 16:53 RBC (4.30-5.90) m/uL Hgb (13.0-17.5) gm/dL Hct (39.0-53.0) % Chloride (98-107) mmol/L Glucose (74-99) mg/dL POC Glucose (mg/dL) 186 H 185 H (70-110) mg/dL Procalcitonin 0.25 H (0.02-0.09) ng/mL 07/02/23 07/02/23 07/02/23 Range/Units 04:04 04:04 06:39 RBC 2.69 L (4.30-5.90) m/uL Hgb 8.2 L (13.0-17.5) gm/dL Hct 25.1 L (39.0-53.0) % Chloride 111 H (98-107) mmol/L Glucose 184 H (74-99) mg/dL POC Glucose (mg/dL) 194 H (70-110) mg/dL Procalcitonin (0.02-0.09) ng/mL Microbiology - Last 24 Hours (Table) 06/30/23 12:23 Blood Culture - Preliminary Blood Assessment and Plan Assessment: Acute Hyperglycemia, related to mild DHHS. The patient is on Levemir 15 units at bedtime and a sliding scale coverage Diabetes mellitus type 2, poorly controlled Altered mental status, likely related to toxic metabolic encephalopathy, secon emilee to above. CAT scan of the brain showed some chronic white matter changes. No CVA. No seizure activity. The patient is off Precedex patient was given Prolixin 3 mg as needed, he was also started on risperidone 2 mg twice a day and he is also on Effexor. Patient was seen by psychiatry. Patient is clinically improving Poorly controlled diabetes mellitus. The patient will maintain on insulin on outpatient basis and he has been taken Lantus 34 units at bedtime, NovoLog 15 units at lunch, 25 at breakfast and 28 at supper. 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 No evidence of any stridor. Ultrasound the thyroid showed a right thyroid nodule as discussed. Acute hypoxemic respiratory failure, currently on BiPAP at a pressure of 14/6 cm of water with FiO2 of 40% with a pulse ox of 94% acute kidney injury, no baseline creatinine available, improving and the patient is currently on IV fluids Hypernatremia History of uncontrolled insulin-dependent diabetes mellitus, hemoglobin A1c of 13.6 History of anxiety/depression/bipolar disorder, maintain on a combination of Seroquel, Effexor, Wellbutrin, and Depakote. Coronary artery disease with previous coronary artery bypass surgery Plan: Continue risperidone and Prolixin on an as-needed basis Continue Effexor Currently on room and oxygen IV fluids to KVO Levemir 15 units daily along with a sliding scale coverage She is currently on room air Chest x-rays not showing any acute abnormalities is clear She is able to swallow No other active issues. . Transfer this patient to medical floor.
[2023-07-02] MEDS: ASPIRIN 81 MG PO SCH (14:11)
[2023-07-02 16:29] LABS: Glucose,Whole Blood 309 mg/dL (70-110)
[2023-07-02] MEDS: MELATONIN 5 MG TABLET PO SCH (19:53)
[2023-07-02] MEDS: DIVALPROEX ER 500 MG TAB.ER.24H PO SCH (19:53)
[2023-07-02] MEDS: ATORVASTATIN 80 MG TAB PO SCH (19:53)
[2023-07-02] MEDS: INSULIN DETEMIR (LEVEMIR) 100 UNIT/ML SYR SQ SCH (20:00)
[2023-07-02 20:15] LABS: Glucose,Whole Blood 220 mg/dL (70-110)
--- NOTE | 2023-07-03 00:12 | P.PN ---
Subjective Progress Note Date: 07/02/23 07/02/2023: Patient was seen for a follow-up. Patient is sitting in the wheelchair, being transferred to the regular floor. He has remarkably improved. Patient is speaking much clearly. Please refer to examination below. 06/30/2023: Patient was seen for a follow-up. Patient's was also present today. She mentions that patient presented to the hospital with 1 week history of slow disintegration. From Monday to Monday, 06/23/2023 through 06/24/2023, patient would nonstop drink water and would go to the bathroom. Slowly his mentation change, he could not hold himself up, not make sense, was "out of it". He even could not recognize his name. [facility] beers she was told that "he passed a kidne y stone". He was then transferred to [facility]. She mentions that patient has not drank alcohol for last 1 year. No history of drugs. At present patient is doing much better today. He denies any headache, any nausea or vomiting. He admits to having some stomach upset. Patient's mentions that he has been diagnosed with mild dementia, bipolar 1 disorder, and ADD. She states that he has some short-term memory loss, very mild/early stage dementia. He also has neuropathy and therefore is unsteady on his gait. His hips bother him when he walks. There is no previous history of seizures. Objective - Vital Signs Vital signs: Vital Signs Temp 98.2 F 07/02/23 14:00 Pulse 58 L 07/02/23 14:00 Resp 15 07/02/23 14:00 BP 112/65 07/02/23 14:00 Pulse Ox 97 07/02/23 14:00 FiO2 40 06/27/23 11:39 Intake & Output 07/01/23 07/02/23 07/02/23 18:59 06:59 18:59 Intake Total 1210 1650 Output Total 300 2700 Balance 910 -1050 Weight 87 kg Intake: IV 150 1650 0.45% NaCl with KCl 20 75 1650 Meq/l 1,000 ml @ 75 mls/ hr IV .BY DURATION [facility] Rx #:[id number] Mvi, Adult No.4 with Vit 75 K 10 ml Thiamine 100 mg Folic Acid 1 mg In 0.45% NaCl with KCl 20 Meq/l 1, 000 ml @ 75 mls/hr IV .BY DURATION [facility] Rx#: [id number] Intake, IV Titration 1000 Amount 0.45% NaCl with KCl 20 1000 Meq/l 1,000 ml @ 75 mls/ hr IV .BY DURATION [facility] Rx #:[id number] Oral 60 Output: Urine 300 2700 Other: Voiding Method Indwelling Catheter Indwelling Catheter Indwelling Catheter # Bowel Movements 1 3 - Exam Patient is much more alert and awake. He knows his name, his date of , and that he is in [facility]. His speech is much more clear, talking in full sentences. He denies headache. Speech and language functions appears normal. He can name. Also can repeat. Face is symmetric. Visual palmer full. Patient did not cooperate well with motor strength testing. His neck is supple. No meningeal signs. - Labs CBC & Chem 7: 07/02/23 04:04 07/02/23 04:04 Labs: Abnormal Lab Results - Last 24 Hours (Table) 07/01/23 07/02/23 07/02/23 Range/Units 05:36 04:04 04:04 RBC 2.69 L (4.30-5.90) m/uL Hgb 8.2 L (13.0-17.5) gm/dL Hct 25.1 L (39.0-53.0) % Chloride 111 H (98-107) mmol/L Glucose 184 H (74-99) mg/dL POC Glucose (mg/dL) (70-110) mg/dL Procalcitonin 0.25 H (0.02-0.09) ng/mL 07/02/23 07/02/23 07/02/23 Range/Units 06:39 11:22 16:28 RBC (4.30-5.90) m/uL Hgb (13.0-17.5) gm/dL Hct (39.0-53.0) % Chloride (98-107) mmol/L Glucose (74-99) mg/dL POC Glucose (mg/dL) 194 H 205 H 309 H (70-110) mg/dL Procalcitonin (0.02-0.09) ng/mL Microbiology - Last 24 Hours (Table) 06/30/23 12:23 Blood Culture - Preliminary Blood Assessment and Plan Assessment: * Altered mental status, likely due to toxic metabolic encephalopathy. Patient's mentation much improved. * High fevers, unclear etiology. Patient denies headache. His mentation is improving. Neck is supple. No clinical evidence of meningitis encephalitis. Suspect some other cause of fever. * Diabetic HHS versus mild DKA, improving. 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 * Acute kidney injury, now resolved * Hypernatremia, now resolved * History of psychiatric disorder, on Seroquel, Effexor, Wellbutrin and Depakote. * CAD with history of bypass surgery * Previous history of alcoholism * Mild cognitive impairment/early dementia Plan: * Patient's encephalopathy has remarkably improved. Patient denies any headache, no meningeal signs. No clinical evidence of meningitis encephalitis. * Patient's fever has subsided. No obvious source of infection. Patient not on any antibiotics. Discussed with primary physician. * Patient's examination is nonfocal. CT head showed no acute process. * EEG was abnormal due to background slowing of moderate degree. This is suggestive of generalized cerebral dysfunction as can be seen with toxic metabolic encephalopathy or related to diffuse structural brain abnormality. Clinical correlation is recommended. No epileptiform activity was seen. * Management of other medical conditions as per IM/critical care. * Dr. Tom Recinos Will resume neurology service in the morning.
[2023-07-03 06:23] LABS: Glucose,Whole Blood 108 mg/dL (70-110)
[2023-07-03] MEDS: INSULIN ASPART (NovoLOG) 100 UNIT/ML VIAL SQ SCH ×3 (06:41→17:08)
[2023-07-03] MEDS: PANTOPRAZOLE 40 MG/10 ML VIAL IVP SCH (09:29)
[2023-07-03] MEDS: THIAMINE 100 MG/ML 2 ML VIAL IVP SCH (09:29)
[2023-07-03] MEDS: risperiDONE 2 MG TAB PO SCH ×2 (09:30→20:43)
[2023-07-03] MEDS: PROPRANOLOL 40 MG TAB PO SCH ×2 (09:30→20:42)
[2023-07-03] MEDS: VENLAFAXINE HCL ER 150 MG CAP PO SCH ×2 (09:30→17:08)
[2023-07-03] MEDS: ISOSORBIDE MONONITRATE ER 30 MG TAB.ER.24H PO SCH (09:30)
[2023-07-03] MEDS: EZETIMIBE 10 MG TAB PO SCH (09:30)
[2023-07-03 11:04] LABS: Basophils # (A) 0.01 X 10*3/uL (0.00-0.10); Basophils % (A) 0.2 %; Eosinophils # (A) 0.21 X 10*3/uL (0.04-0.35); Eosinophils % (A) 4.4 %; HCT 24.2 % (39.6-50.0); Lymphocytes # (A) 1.24 X 10*3/uL (0.90-5.00); Lymphocytes % (A) 26.1 %; MCH 30.8 pg (27.0-32.0); MCHC 33.1 g/dL (32.0-37.0); MCV 93.1 FL (80.0-97.0); Mean Platelet Volume 11.9 FL (9.5-12.2); Monocytes # (A) 0.76 X 10*3/uL (0.20-1.00); NRBC Per 100 WBC 0 X 10*3/uL (0.00-0.01); Neutrophils # (A) 2.53 X 10*3/uL (1.80-7.70); Neutrophils % (A) 53.1 %; Platelet Count 194 X 10*3/uL (140-440); RDW 13.1 % (11.5-14.5); WBC 4.76 X 10*3/uL (4.50-10.00)
[2023-07-03 11:14] LABS: BUN/Creat Ratio 12.62 Ratio (12.00-20.00); Blood Urea Nitrogen 10.1 mg/dL (9.0-27.0); Calcium 8.3 mg/dL (8.7-10.3); Carbon Dioxide 22.5 mmol/L (21.6-31.8); Chloride 111 mmol/L (96-109); Glucose 98 mg/dL (70-110); Magnesium 1.9 mg/dL (1.5-2.4); Potassium 3.8 mmol/L (3.5-5.5); Sodium 143 mmol/L (135-145)
[2023-07-03 11:35] LABS: Glucose,Whole Blood 139 mg/dL (70-110)
[2023-07-03 13:30] VITALS: BMI 26.7
--- NOTE | 2023-07-03 13:52 | P.PN ---
Subjective Progress Note Date: 07/03/23 Hospital Course: 63-year-old male with no well known past medical history presented from outside hospital for hyperglycemia, altered mentation. On initial presentation, his WBC was 10.4, hemoglobin 9.5, anion gap 16, bicarb 24, BUN 85, creatinine 2.9, glucose 650, pH 7.358, pCO2 37, lactate 1.6, respiratory viral panel negative, troponin negative, acetone minimal, UA negative. EKG shows sinus rhythm. CT head showed no acute process. CT abdomen showed constipation and distended bl adder. CT neck showed right lobe thyroid mass. Per records, patient received 2 mg of IV Haldol, 0.5 mg of IV Ativan as well as was started on insulin drip. Per report, patient received 5 mg of IV Versed on the way from other hospital. In the ED at our facility, patient saturating 95% on 3 L, rest of the vitals signs were otherwise normal limits. Point of care glucose was 532. Labs at our facility showed WBC of 11.9, hemoglobin of 10.4, BUN 90, creatinine on 08, glucose of 495, mildly elevated ALT of 68, ALP 153. Patient admitted for acute metabolic encephalopathy in the setting of HHS versus mild DKA. Was on insulin drip, now transitioned to subcutaneous. Encephalopathy improved medical ICU. Patient was evaluated by both neurology and psychiatry. Mental status back to normal. Subjective: Patient seen and examined at bedside. No acute events overnight. Pertinent positives and negatives as discussed above, a complete review of systems was performed and all other systems are negative. Vitals Signs Reviewed. General: nontoxic, no distress, appears at stated age Derm: warm, dry Head: atraumatic, normocephalic, symmetric Eyes: EOMI, no lid lag, anicteric sclera Mouth: no lip lesion, mucus membranes moist Cardiovascular: S1S2 reg, no murmur Lungs: CTA bilateral, no rhonchi, no rales , no accessory muscle use Abdominal: soft, nontender to palpation, no guarding, no appreciable organomegaly Ext: no gross muscle atrophy, no edema, no contractures Neuro: CN II-XI grossly intact, no focal neuro deficits Psych: Alert, oriented, appropriate affect Data Reviewed Today: Pertinent Labs: Hemoglobin 8, platelet 194, potassium 2.8, creatinine 0.8, magnesium 1.9, blood sugars range between 98-220 Imaging: No new Imaging Assessment and Plan: Acute metabolic encephalopathy with agitation, resolved Fevers, has been afebrile for the last 48 hours History of psychosis - BCx: 06/25 - NGTD at 5 days; 06/30 - NGTD - EEG reviewed and c/w metabolic encephalopathy - Discussed with neurology, no further changes -Discussed with psychiatry, continue: -prolixin IM q8h when necessary -risperdal 2 mg BID -depakote, effexor continued -Continue to hold off on antibiotics at this time Uncontrolled type 2 diabetes, A1c 13.6 HHS versus mild DKA, resolved - Subcutaneous levemir 15U, aspart SSI AC-TID -Monitor for hypoglycemia Anemia, normocytic Thrombocytopenia, resolved - unclear etiology; B12/Folate are high - reticulocyte count, LDH, haptoglobin ordered -retic count% is 1.6: calculated index is 0.46 c/w hypoproliferative state -LDH mildly elevated, haptoglobin is 93 not c/w hemolysis Thyroid mass -TSH wnl -outpatient PCP f/u [facility], resolved Urinary retention, resolved -Becerril catheter discontinued Dyslipidemia - atorvastatin 80mg HS PT/OT assessment DVT ppx: Subcu enoxaparin Code status: Full code Anticipated discharge place: Pending clinical course Anticipated discharge time: Pending clinical course Objective - Vital Signs Vital signs: Vital Signs Temp 98.2 F 07/03/23 07:06 Pulse 58 L 07/03/23 07:45 Resp 16 07/03/23 07:45 BP 140/73 07/03/23 07:06 Pulse Ox 92 L 07/03/23 08:54 FiO2 40 06/27/23 11:39 Intake & Output 07/02/23 07/03/23 07/03/23 18:59 06:59 18:59 Intake Total 900 Output Total 100 1200 Balance -100 -300 Weight 87 kg Intake: IV 900 0.45% NaCl with KCl 20 900 Meq/l 1,000 ml @ 75 mls/ hr IV .BY DURATION [facility] Rx #:[id number] Output: Urine 100 1200 Other: Voiding Method Indwelling Catheter Urinal Urinal - Labs CBC & Chem 7: 07/03/23 06:41 07/03/23 06:41 Labs: Abnormal Lab Results - Last 24 Hours (Table) 07/02/23 07/02/23 07/03/23 Range/Units 16:28 20:14 06:41 RBC 2.60 L (4.40-5.60) X 10*6/uL Hgb 8.0 L (13.0-17.0) g/dL Hct 24.2 L (39.6-50.0) % Chloride (96-109) mmol/L POC Glucose (mg/dL) 309 H 220 H (70-110) mg/dL Calcium (8.7-10.3) mg/dL 07/03/23 07/03/23 Range/Units 06:41 11:34 RBC (4.40-5.60) X 10*6/uL Hgb (13.0-17.0) g/dL Hct (39.6-50.0) % Chloride 111 H (96-109) mmol/L POC Glucose (mg/dL) 139 H (70-110) mg/dL Calcium 8.3 L (8.7-10.3) mg/dL Microbiology - Last 24 Hours (Table) 06/30/23 12:23 Blood Culture - Preliminary Blood
--- NOTE | 2023-07-03 14:12 | P.PN ---
Subjective Progress Note Date: 07/03/23 I am seeing this patient in new consultation today 06/26/2023 in the intensive care unit after the patient was transferred from [facility] for altered mental status and high blood sugars. Patient is a 63-year-old white male whose past medical history is largely unknown. He is currently confused and obtunded, unable to answer questions. Apparently, patient presented to [facility] yesterday he was found to be combative and confused. His blood sugars were also found to be severely high at 808 g/dL. Serum CO2 was 20, anion gap 23. Ketones were mildly positive. Possible in mild DKA vs HHS. Patient did have an initial workup, including a brain CT which did not show any acute intracranial process. Urine drug screen also negative. EtOH level at our facility was less than 10. A CT of the chest done at the outside facility reported a mass within the superior mediastinum favoring to be from the right lobe of the thyroid. There were also postsurgical open-heart changes, and dependent atelectasis without acute infiltrates. Upon transfer, the patient became combative and agitated. He required restraints, multiple doses of Ativan, and a dose of Zyprexa. Patient was then admitted to the intensive care unit, and started on Precedex which is currently infusing at 0.12 mcg/kg per hour. He is fairly sedated on this dose, and it could be weaned down. He does not follow commands, briefly opens his eyes to painful stimuli. He is currently on 3 L nasal cannula. SpO2 was in reading at 98%. Insulin is currently infusing at 12.7 units per hour. Most recent BMP at our facility shows a sodium of 150, potassium 4, chloride 112, serum bicarb of 29, anion gap 9, BUN 72, creatinine 1.76, and blood glucose is down to 166. D5W/half-normal saline with 20 meq K is infusing at 150 ML's per hour. Patient's hemoglobin A1c is 13.6. LFTs are mildly elevated. TSH level was 1.24. CBC done in our facility shows a WBC count 11.9, hemoglobin 10.4, hematocrit 29, platelets 187. Urinalysis not significant for urinary tract infection. He is afebrile. Vital signs are stable. He will be monitored in the intensive care unit. On 06/27/2023, the patient is being seen for a follow-up. The patient was transferred to us for altered mental status and hyperglycemia related to hyperosmolar nonketotic state. The patient remains in the intensive care unit. The patient remains on a BiPAP at pressure 14/6 cm of water with an FiO2 of 40%. Overnight, he was quite restless and agitated. He remains on 2 point restraints. He was given a total of 5 mg of Ativan overnight. This morning, is quite comfortable and his synchronous with the BiPAP machine. He remains encephalopathic for now. Precedex is also running at 0.7 mcg/kg/h to control his agitation. CAT scan of the brain showed some chronic microvascular changes. The patient remains on IV fluids. He is currently on half-normal saline at the rate of 150 mL an hour. Is also on an insulin drip at 3 units an hour. Blood sugars under better control for now. In terms of his blood work, no new labs are available from today. Most recent labs are from yesterday and morning labs are still pending for now. His chest x-ray showed no acute abnormalities. Ultrasound the kidneys showed no evidence of any hydronephrosis. There was a concern of a neck/thyroid mass and for that reason, the patient was given an ul trasound of the thyroid that showed a a 2.2 x 2.5 x 2.0 cm mixed cystic and solid nodule on the right. Hemodynamically stable. Cardiac rhythm is sinus. No other significant issues overnight. On today's evaluation of 06/28/2023, the patient is restless and is thrashing in bed. Nevertheless, he seems to be more alert and awake compared to yesterday. His opening up his eyes and is trying to get out of bed. He has a sitter at the bedside. He remains on Precedex which is running at 0.9 microvascular kilogram per minutes. He was also given Ativan overnight and he was getting frequent doses. The patient is currently off BiPAP. He was taken off BiPAP yesterday midday and he was placed on nasal cannula at 2 L. No signs of any respiratory distress. No neck stiffness. No fever. No hemodynamic instability. No hypoxemia. He is hemodynamically stable. BUN is at 50 with a creatinine 0.8 and a sodium level is at 142 and the patient is on normal saline at rate of 75 mL an hour. I'll discuss 4.4 with a hemoglobin of 8.4. He remains nothing by mouth. Unable to take his oral medication as the patient is quite altered mentally and his swallow is not properly at this point in time. On today's evaluation of 06/29/2023, I'm seeing the patient for a follow-up. Agitation or restlessness and delirium is an ongoing issue for this patient. The patient is currently on Precedex at 0.8 mcg/kg/h. This needs to be gradually weaned off. I noticed that he is a is able to communicate more effectively and he was able to mention his date of today. He is not consistently following commands. Neurologic exam is nonfocal at this point in time and the patient is moving all 4 extremities without any limitation. Hemodynamically stable. Is on oxygen at 2 L nasal cannula. He has limited on multiple psychotropic medications on outpatient basis including Seroquel, they are milligrams at bedtime, Effexor XL are 150 mg by mouth twice a day, Wellbutrin SR 150 mg by mouth twice a day and Depakote 1 g at bedtime. Note that those medications have not been started the patient hasn't been able to safely swallow. The patient has a sitter at the bedside. In terms of blood sugar control, the patient was having episodes of hypoglycemia. Based on that, the Levemir insulin was placed on hold and the blood sugars are gradually on the rise and the patient will be started on a lower dose of Levemir for now in addition to a sliding scale coverage. IV fluids are currently running at 75 mL an hour and the patient is on oxygen at 2 L nasal cannula. EEG was done yesterday and it showed no seizure activity. The patient has abnormal EEG with moderate lowering and this is indicative of generalized cerebral dysfunction. Neurology consultation was also performed and that input is appreciated. On today's evaluation of 06/30/2023, seeing the patient for a follow-up. Is currently off Precedex and this medication was discontinued this morning. He is awake and communicating. He remains confused. He is pleasantly confused. He cannot answer all questions appropriately. He continues to try to get out of bed. He was seen by psychiatry yesterday. He was started on Risperdal 1 mg twice a day. He was also started on Effexor XR 150 mg twice a day and Depakote will be discontinued and the patient will be given Prolixin 30 mg IM every 8 hours on an as-needed basis. He is on room air oxygen. No signs of any respiratory distress. BiPAP has been discontinued. He remains on Levemir insulin 10 units daily. He is on Lovenox portably prophylaxis. Labs from today show a white cell count of 5.2 with a hemoglobin of 8.4. Sodium level is at 148 and the patient is currently on normal saline at the rate of 75 mL an hour. His potassium levels at 3.2. The ends of 50 with a creatinine of 0.8. On 07/01/2023, the patient is communicating. Remains somewhat confused. He is on room air oxygen. Moving all 4 extremities. He has generalized global weakness in all 4 extremities. Mental status is still cloudy and the patient is alert and oriented 1 only. No focal neurological deficits. No headaches. No seizure activity. He was seen by psychiatry. The patient is currently on Prolixin 3 mg IM every 8 hours. Is being given as needed. Is also on Effexor or X are 150 mg by mouth twice a day and Risperdal 1 mg twice a day. Noted the patient has not required Prolixin overnight. The patient is also off Precedex. His blood sugars are on the lower side and the patient is currently on Levemir insulin at 20 units an hour. Otherwise, his condition is stable. Hemodynamically stable. BUN is 11 with a creatinine of 0.7 sodium is 143. The white cell count of 5.4 with a hemoglobin of 7.9. The patient is able to swallow. Patient is currently on IV fluids at half-normal saline with potassium at the rate of 75 mL an hour. 07/02/2023, the patient is alert and awake and communicating. Episodic confusion. No agitation. No other significant events overnight. Tolerating diet. Is currently on room air oxygen. The patient is currently on Levemir insulin 15 units at bedtime and NovoLog and he is using a sliding scale coverage. He remains on Risperdal 2 mg twice a day in combination with Effexor. Labs from today was noted. BUN is at 11 with a creatinine of 0.7. Sodium level is at 139. The bronchoscope was at 4.3 with a hemoglobin of 8.2. The patient is seen today 07/03/2023 in follow-up in the regular medical floor. He is currently resting comfortably in bed. Awake and alert in no acute distress. He is maintaining good O2 saturations in the 90s on room air. White count 4.7. Hemoglobin 8.0. Platelets 194. Sodium 143. Potassium 3.8. Bicarb 23. BUN 10. Creatinine 0.8. Glucose 98. Blood cultures revealed no growth. He has a 0.45% normal saline with 20 mEq of KCl at 75 ML's per hour. Lovenox for DVT prophylaxis. Objective - Vital Signs Vital signs: Vital Signs Temp 98.2 F 07/03/23 07:06 Pulse 58 L 07/03/23 07:45 Resp 16 07/03/23 07:45 BP 140/73 07/03/23 07:06 Pulse Ox 92 L 07/03/23 08:54 FiO2 40 06/27/23 11:39 Intake & Output 07/02/23 07/03/23 07/03/23 18:59 06:59 18:59 Intake Total 900 Output Total 100 1200 Balance -100 -300 Weight 87 kg Intake: IV 900 0.45% NaCl with KCl 20 900 Meq/l 1,000 ml @ 75 mls/ hr IV .BY DURATION [facility] Rx #:[id number] Output: Urine 100 1200 Other: Voiding Method Indwelling Catheter Urinal Urinal - Exam GENERAL EXAM: Alert, cooperative 63-year-old male, resting in bed, on room air, comfortable in no apparent distress. HEAD: Normocephalic. EYES: Normal reaction of pupils, equal size. NOSE: Clear with pink turbinates. THROAT: No erythema or exudates. NECK: No masses, no JVD. CHEST: No chest wall deformity. LUNGS: Equal air entry with no crackles, wheeze, rhonchi or dullness. CVS: S1 and S2 normal with no audible murmur, regular rhythm. ABDOMEN: No hepatosplenomegaly, normal bowel sounds, no guarding or rigidity. SPINE: No scoliosis or deformity SKIN: No rashes CENTRAL NERVOUS SYSTEM: No focal deficits, tone is normal in all 4 extremities. EXTREMITIES: There is no peripheral edema. No clubbing, no cyanosis. Peripheral pulses are intact. - Labs CBC & Chem 7: 07/03/23 06:41 07/03/23 06:41 Labs: Abnormal Lab Results - Last 24 Hours (Table) 07/02/23 07/02/23 07/03/23 Range/Units 16:28 20:14 06:41 RBC 2.60 L (4.40-5.60) X 10*6/uL Hgb 8.0 L (13.0-17.0) g/dL Hct 24.2 L (39.6-50.0) % Chloride (96-109) mmol/L POC Glucose (mg/dL) 309 H 220 H (70-110) mg/dL Calcium (8.7-10.3) mg/dL 07/03/23 07/03/23 Range/Units 06:41 11:34 RBC (4.40-5.60) X 10*6/uL Hgb (13.0-17.0) g/dL Hct (39.6-50.0) % Chloride 111 H (96-109) mmol/L POC Glucose (mg/dL) 139 H (70-110) mg/dL Calcium 8.3 L (8.7-10.3) mg/dL Microbiology - Last 24 Hours (Table) 06/30/23 12:23 Blood Culture - Preliminary Blood Assessment and Plan Assessment: Acute Hyperglycemia, related to mild DHHS. The patient is on Levemir 15 units at bedtime and a sliding scale coverage Diabetes mellitus type 2, poorly controlled Altered mental status, likely related to toxic metabolic encephalopathy, secondary to above. CAT scan of the brain showed some chronic white matter changes. No CVA. No seizure activity. The patient is off Precedex patient was given Prolixin 3 mg as needed, he was also started on risperidone 2 mg twice a day and he is also on Effexor. Patient was seen by psychiatry. Patient is clinically improving Poorly controlled diabetes mellitus. The patient will maintain on insulin on outpatient basis and he has been taken Lantus 34 units at bedtime, NovoLog 15 units at lunch, 25 at breakfast and 28 at supper. 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 No evidence of any stridor. Ultrasound the thyroid showed a right thyroid nodule as discussed. Acute hypoxemic respiratory failure, initially on BiPAP at a pressure of 14/6 cm of water with FiO2 of 40%, recovered and currently on room air Acute kidney injury, no baseline creatinine available, improving and the patient is currently on IV fluids Hypernatremia History of uncontrolled insulin-dependent diabetes mellitus, hemoglobin A1c of 1 3.6 History of anxiety/depression/bipolar disorder, maintain on a combination of Seroquel, Effexor, Wellbutrin, and Depakote. Coronary artery disease with previous coronary artery bypass surgery Plan: The patient was seen and evaluated Currently stable and on room air Alert and cooperative Medications being adjusted Blood sugar under better control Discharge planning in place I have personally seen and examined the patient, performed the documentation and the assessment and plan as written. Number of minutes spent on the visit: 10.
--- NOTE | 2023-07-03 16:22 | P.PN ---
Subjective Progress Note Date: 07/03/23 I am seeing the patient for the first time during this admission. Please refer to Dr. Rodas's notes for further details. Since the patient had altered mental status and it felt to be due to metabolic encephalopathy. His mentation and has improved. The patient's is at bedside and she feels his mentation is drastically improved. Objective - Vital Signs Vital signs: Vital Signs Temp 97.9 F 07/03/23 13:47 Pulse 62 07/03/23 13:47 Resp 18 07/03/23 13:47 BP 109/61 07/03/23 13:47 Pulse Ox 93 L 07/03/23 13:47 FiO2 40 06/27/23 11:39 Intake & Output 07/02/23 07/03/23 07/03/23 18:59 06:59 18:59 Intake Total 900 Output Total 100 1200 Balance -100 -300 Weight 87 kg Intake: IV 900 0.45% NaCl with KCl 20 900 Meq/l 1,000 ml @ 75 mls/ hr IV .BY DURATION [facility] Rx #:[id number] Output: Urine 100 1200 Other: Voiding Method Indwelling Catheter Urinal Urinal - Exam Gen.: The patient is sitting up in the his bed and is not in acute distress at. As the neuro as the patient is awake alert oriented to self, place. He correctly stated the months but stated the year as 2023. He correctly was able to identify objects such as pen and watch. The patient is following simple commands. No aphasia and no neglect. Pupils are round equal reactive to light. Visual palmer are full to confrontation. EOM intact and no nystagmus. No facial weakness. No dyarthria. Motor: Lifting uppers and lowers above gravity and seems equal. - Labs CBC & Chem 7: 07/03/23 06:41 07/03/23 06:41 Labs: Abnormal Lab Results - Last 24 Hours (Table) 07/02/23 07/02/23 07/03/23 Range/Units 16:28 20:14 06:41 RBC 2.60 L (4.40-5.60) X 10*6/uL Hgb 8.0 L (13.0-17.0) g/dL Hct 24.2 L (39.6-50.0) % Chloride (96-109) mmol/L POC Glucose (mg/dL) 309 H 220 H (70-110) mg/dL Calcium (8.7-10.3) mg/dL 07/03/23 07/03/23 Range/Units 06:41 11:34 RBC (4.40-5.60) X 10*6/uL Hgb (13.0-17.0) g/dL Hct (39.6-50.0) % Chloride 111 H (96-109) mmol/L POC Glucose (mg/dL) 139 H (70-110) mg/dL Calcium 8.3 L (8.7-10.3) mg/dL Microbiology - Last 24 Hours (Table) 06/30/23 12:23 Blood Culture - Preliminary Blood Assessment and Plan Assessment: * Altered mental status, likely due to toxic metabolic encephalopathy. Patient's mentation much improved. * High fevers, unclear etiology. Patient denies headache. His mentation is improving. Neck is supple. No clinical evidence of meningitis encephalitis. Suspect some other cause of fever. * Diabetic HHS versus mild DKA, improving. 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 * Acute kidney injury, now resolved * Hypernatremia, now resolved * History of psychiatric disorder, on Seroquel, Effexor, Wellbutrin and Depakote. * CAD with history of bypass surgery * Previous history of alcoholism * Mild cognitive impairment/early dementia Plan: * Patient's encephalopathy has remarkably improved. Patient denies any headache, no meningeal signs. No clinical evidence of meningitis encephalitis. * Patient's fever has subsided. No significant leukocytosis he had a one-time episode of slight elevated white blood cell which is just minimal and resolved. No obvious source of infection. Patient not on any antibiotics. * Patient's examination is nonfocal. CT head showed no acute process. * EEG was abnormal due to background slowing of moderate degree. This is suggestive of generalized cerebral dysfunction as can be seen with toxic metabolic encephalopathy or related to diffuse structural brain abnormality. Clinical correlation is recommended. No epileptiform activity was seen. * Patient has underlying tremor which is his baseline and has drastically improve according to the . [facility]. * Management of other medical conditions as per IM. * Recommend the patient to follow-up with the neurologist [facility] an [facility] the [facility] 2 weeks. Plan discussed with the patient, his was at bedside and the primary attending. There is no additional neurological workup. We'll sign off. Please reconsult if needed. Time with Patient: Less than 30
[2023-07-03 16:54] LABS: Glucose,Whole Blood 425 mg/dL (70-110)
[2023-07-03] MEDS: ASPIRIN 81 MG PO SCH (17:07)
[2023-07-03] MEDS: [UNRECOGNIZED DRUG - REMARK] IV SCH ×8 (19:00→20:38)
[2023-07-03 20:20] LABS: Glucose,Whole Blood 257 mg/dL (70-110)
[2023-07-03] MEDS: INSULIN DETEMIR (LEVEMIR) 100 UNIT/ML SYR SQ SCH (20:41)
[2023-07-03] MEDS: ATORVASTATIN 80 MG TAB PO SCH (20:42)
[2023-07-03] MEDS: MELATONIN 5 MG TABLET PO SCH (20:42)
[2023-07-03] MEDS: DIVALPROEX ER 500 MG TAB.ER.24H PO SCH (20:42)
[2023-07-04] MEDS: [UNRECOGNIZED DRUG - REMARK] IV SCH ×8 (03:26→08:38)
[2023-07-04 06:01] LABS: Glucose,Whole Blood 134 mg/dL (70-110)
[2023-07-04] MEDS: INSULIN ASPART (NovoLOG) 100 UNIT/ML VIAL SQ SCH ×3 (06:03→16:48)
[2023-07-04] MEDS: VENLAFAXINE HCL ER 150 MG CAP PO SCH ×2 (08:09→15:30)
[2023-07-04] MEDS: ENOXAPARIN 40 MG/0.4 ML SYRINGE SQ SCH (08:09)
[2023-07-04] MEDS: ISOSORBIDE MONONITRATE ER 30 MG TAB.ER.24H PO SCH (08:09)
[2023-07-04] MEDS: PANTOPRAZOLE 40 MG/10 ML VIAL IVP SCH (08:09)
[2023-07-04] MEDS: EZETIMIBE 10 MG TAB PO SCH (08:09)
[2023-07-04] MEDS: THIAMINE 100 MG/ML 2 ML VIAL IVP SCH (08:11)
[2023-07-04] MEDS: risperiDONE 2 MG TAB PO SCH ×2 (08:11→20:37)
[2023-07-04] MEDS: PROPRANOLOL 40 MG TAB PO SCH ×2 (08:11→20:38)
[2023-07-04 11:05] LABS: Glucose,Whole Blood 232 mg/dL (70-110)
--- NOTE | 2023-07-04 13:41 | P.PN ---
Subjective Progress Note Date: 07/04/23 Hospital Course: 63-year-old male with no well known past medical history presented from outside hospital for hyperglycemia, altered mentation. On initial presentation, his WBC was 10.4, hemoglobin 9.5, anion gap 16, bicarb 24, BUN 85, creatinine 2.9, glucose 650, pH 7.358, pCO2 37, lactate 1.6, respiratory viral panel negative, troponin negative, acetone minimal, UA negative. EKG shows sinus rhythm. CT head showed no acute process. CT abdomen showed constipation and distended b ladder. CT neck showed right lobe thyroid mass. Per records, patient received 2 mg of IV Haldol, 0.5 mg of IV Ativan as well as was started on insulin drip. Per report, patient received 5 mg of IV Versed on the way from other hospital. In the ED at our facility, patient saturating 95% on 3 L, rest of the vitals signs were otherwise normal limits. Point of care glucose was 532. Labs at our facility showed WBC of 11.9, hemoglobin of 10.4, BUN 90, creatinine on 08, glucose of 495, mildly elevated ALT of 68, ALP 153. Patient admitted for acute metabolic encephalopathy in the setting of HHS versus mild DKA. Was on insulin drip, now transitioned to subcutaneous. Encephalopathy improved medical ICU. Patient was evaluated by both neurology and psychiatry. Mental status back to normal. Pending rehab discharge. Subjective: Patient seen and examined at bedside. No acute events overnight. Pertinent positives and negatives as discussed above, a complete review of systems was performed and all other systems are negative. Vitals Signs Reviewed. General: nontoxic, no distress, appears at stated age Derm: warm, dry Head: atraumatic, normocephalic, symmetric Eyes: EOMI, no lid lag, anicteric sclera Mouth: no lip lesion, mucus membranes moist Cardiovascular: S1S2 reg, no murmur Lungs: CTA bilateral, no rhonchi, no rales , no accessory muscle use Abdominal: soft, nontender to palpation, no guarding, no appreciable organomegaly Ext: no gross muscle atrophy, no edema, no contractures Neuro: CN II-XI grossly intact, no focal neuro deficits Psych: Alert, oriented, appropriate affect Data Reviewed Today: Pertinent Labs: Blood sugars range between 134-257 Imaging: No new Imaging Assessment and Plan: Acute metabolic encephalopathy with agitation, resolved Fevers, has been afebrile for more than 48 hours History of psychosis - BCx: 06/25 - NGTD at 5 days; 06/30 - NGTD - EEG reviewed and c/w metabolic encephalopathy - Discussed with neurology, no further changes -Discussed with psychiatry, continue: -prolixin IM q8h when necessary -risperdal 2 mg BID -depakote, effexor continued -Continue to hold off on antibiotics at this time Uncontrolled type 2 diabetes, A1c 13.6 HHS versus mild DKA, resolved - Subcutaneous levemir 15U, aspart SSI AC-TID -Monitor for hypoglycemia Anemia, normocytic Thrombocytopenia, resolved - unclear etiology; B12/Folate are high - reticulocyte count, LDH, haptoglobin ordered -retic count% is 1.6: calculated index is 0.46 c/w hypoproliferative state -LDH mildly elevated, haptoglobin is 93 not c/w hemolysis Thyroid mass -TSH wnl -outpatient PCP f/u [facility], resolved Urinary retention, resolved -Becerril catheter discontinued Dyslipidemia - atorvastatin 80mg HS DVT ppx: Subcu enoxaparin Code status: Full code Anticipated discharge place : Subacute rehab Anticipated discharge time: Pending clinical course Objective - Vital Signs Vital signs: Vital Signs Temp 97.7 F 07/04/23 07:56 Pulse 60 07/04/23 07:56 Resp 16 07/04/23 07:56 BP 138/73 07/04/23 07:56 Pulse Ox 95 07/04/23 07:56 FiO2 40 06/27/23 11:39 Intake & Output 07/03/23 07/04/23 07/04/23 18:59 06:59 18:59 Intake Total 1661.2 0 Output Total 5 Balance 1661.2 -5 Weight 87 kg Intake: Intake, IV Titration 1011.2 0 Amount Mvi, Adult No.4 with Vit 1011.2 0 K 10 ml Thiamine 100 mg Folic Acid 1 mg In 0.45% NaCl with KCl 20 Meq/l 1, 000 ml @ 75 mls/hr IV .BY DURATION [facility] Rx#: [id number] Oral 650 Output: Stool 5 Other: Voiding Method Urinal # Voids 3 - Labs CBC & Chem 7: 07/03/23 06:41 07/03/23 06:41 Labs: Abnormal Lab Results - Last 24 Hours (Table) 07/03/23 07/03/23 07/04/23 Range/Units 16:49 20:19 06:00 POC Glucose (mg/dL) 425 H 257 H 134 H (70-110) mg/dL 07/04/23 Range/Units 11:03 POC Glucose (mg/dL) 232 H (70-110) mg/dL Microbiology - Last 24 Hours (Table) 06/30/23 12:23 Blood Culture - Preliminary Blood
--- NOTE | 2023-07-04 14:26 | P.PN ---
Subjective Progress Note Date: 07/04/23 I am seeing this patient in new consultation today 06/26/2023 in the intensive care unit after the patient was transferred from [facility] for altered mental status and high blood sugars. Patient is a 63-year-old white male whose past medical history is largely unknown. He is currently confused and obtunded, unable to answer questions. Apparently, patient presented to [facility] yesterday he was found to be combative and confused. His blood sugars were also found to be severely high at 808 g/dL. Serum CO2 was 20, anion gap 23. Ketones were mildly positive. Possible in mild DKA vs HHS. Patient did have an initial workup, including a brain CT which did not show any acute intracranial process. Urine drug screen also negative. EtOH level at our facility was less than 10. A CT of the chest done at the outside facility reported a mass within the superior mediastinum favoring to be from the right lobe of the thyroid. There were also postsurgical open-heart changes, and dependent atelectasis without acute infiltrates. Upon transfer, the patient became combative and agitated. He required restraints, multiple doses of Ativan, and a dose of Zyprexa. Patient was then admitted to the intensive care unit, and started on Precedex which is currently infusing at 0.12 mcg/kg per hour. He is fairly sedated on this dose, and it could be weaned down. He does not follow commands, briefly opens his eyes to painful stimuli. He is currently on 3 L nasal cannula. SpO2 was in reading at 98%. Insulin is currently infusing at 12.7 units per hour. Most recent BMP at our facility shows a sodium of 150, potassium 4, chloride 112, serum bicarb of 29, anion gap 9, BUN 72, creatinine 1.76, and blood glucose is down to 166. D5W/half-normal saline with 20 meq K is infusing at 150 ML's per hour. Patient's hemoglobin A1c is 13.6. LFTs are mildly elevated. TSH level was 1.24. CBC done in our facility shows a WBC count 11.9, hemoglobin 10.4, hematocrit 29, platelets 187. Urinalysis not significant for urinary tract infection. He is afebrile. Vital signs are stable. He will be monitored in the intensive care unit. On 06/27/2023, the patient is being seen for a follow-up. The patient was transferred to us for altered mental status and hyperglycemia related to hyperosmolar nonketotic state. The patient remains in the intensive care unit. The patient remains on a BiPAP at pressure 14/6 cm of water with an FiO2 of 40%. Overnight, he was quite restless and agitated. He remains on 2 point restraints. He was given a total of 5 mg of Ativan overnight. This morning, is quite comfortable and his synchronous with the BiPAP machine. He remains encephalopathic for now. Precedex is also running at 0.7 mcg/kg/h to control his agitation. CAT scan of the brain showed some chronic microvascular changes. The patient remains on IV fluids. He is currently on half-normal saline at the rate of 150 mL an hour. Is also on an insulin drip at 3 units an hour. Blood sugars under better control for now. In terms of his blood work, no new labs are available from today. Most recent labs are from yesterday and morning labs are still pending for now. His chest x-ray showed no acute abnormalities. Ultrasound the kidneys showed no evidence of any hydronephrosis. There was a concern of a neck/thyroid mass and for that reason, the patient was given an ul trasound of the thyroid that showed a a 2.2 x 2.5 x 2.0 cm mixed cystic and solid nodule on the right. Hemodynamically stable. Cardiac rhythm is sinus. No other significant issues overnight. On today's evaluation of 06/28/2023, the patient is restless and is thrashing in bed. Nevertheless, he seems to be more alert and awake compared to yesterday. His opening up his eyes and is trying to get out of bed. He has a sitter at the bedside. He remains on Precedex which is running at 0.9 microvascular kilogram per minutes. He was also given Ativan overnight and he was getting frequent doses. The patient is currently off BiPAP. He was taken off BiPAP yesterday midday and he was placed on nasal cannula at 2 L. No signs of any respiratory distress. No neck stiffness. No fever. No hemodynamic instability. No hypoxemia. He is hemodynamically stable. BUN is at 50 with a creatinine 0.8 and a sodium level is at 142 and the patient is on normal saline at rate of 75 mL an hour. I'll discuss 4.4 with a hemoglobin of 8.4. He remains nothing by mouth. Unable to take his oral medication as the patient is quite altered mentally and his swallow is not properly at this point in time. On today's evaluation of 06/29/2023, I'm seeing the patient for a follow-up. Agitation or restlessness and delirium is an ongoing issue for this patient. The patient is currently on Precedex at 0.8 mcg/kg/h. This needs to be gradually weaned off. I noticed that he is a is able to communicate more effectively and he was able to mention his date of today. He is not consistently following commands. Neurologic exam is nonfocal at this point in time and the patient is moving all 4 extremities without any limitation. Hemodynamically stable. Is on oxygen at 2 L nasal cannula. He has limited on multiple psychotropic medications on outpatient basis including Seroquel, they are milligrams at bedtime, Effexor XL are 150 mg by mouth twice a day, Wellbutrin SR 150 mg by mouth twice a day and Depakote 1 g at bedtime. Note that those medications have not been started the patient hasn't been able to safely swallow. The patient has a sitter at the bedside. In terms of blood sugar control, the patient was having episodes of hypoglycemia. Based on that, the Levemir insulin was placed on hold and the blood sugars are gradually on the rise and the patient will be started on a lower dose of Levemir for now in addition to a sliding scale coverage. IV fluids are currently running at 75 mL an hour and the patient is on oxygen at 2 L nasal cannula. EEG was done yesterday and it showed no seizure activity. The patient has abnormal EEG with moderate lowering and this is indicative of generalized cerebral dysfunction. Neurology consultation was also performed and that input is appreciated. On today's evaluation of 06/30/2023, seeing the patient for a follow-up. Is currently off Precedex and this medication was discontinued this morning. He is awake and communicating. He remains confused. He is pleasantly confused. He cannot answer all questions appropriately. He continues to try to get out of bed. He was seen by psychiatry yesterday. He was started on Risperdal 1 mg twice a day. He was also started on Effexor XR 150 mg twice a day and Depakote will be discontinued and the patient will be given Prolixin 30 mg IM every 8 hours on an as-needed basis. He is on room air oxygen. No signs of any respiratory distress. BiPAP has been discontinued. He remains on Levemir insulin 10 units daily. He is on Lovenox portably prophylaxis. Labs from today show a white cell count of 5.2 with a hemoglobin of 8.4. Sodium level is at 148 and the patient is currently on normal saline at the rate of 75 mL an hour. His potassium levels at 3.2. The ends of 50 with a creatinine of 0.8. On 07/01/2023, the patient is communicating. Remains somewhat confused. He is on room air oxygen. Moving all 4 extremities. He has generalized global weakness in all 4 extremities. Mental status is still cloudy and the patient is alert and oriented 1 only. No focal neurological deficits. No headaches. No seizure activity. He was seen by psychiatry. The patient is currently on Prolixin 3 mg IM every 8 hours. Is being given as needed. Is also on Effexor or X are 150 mg by mouth twice a day and Risperdal 1 mg twice a day. Noted the patient has not required Prolixin overnight. The patient is also off Precedex. His blood sugars are on the lower side and the patient is currently on Levemir insulin at 20 units an hour. Otherwise, his condition is stable. Hemodynamically stable. BUN is 11 with a creatinine of 0.7 sodium is 143. The white cell count of 5.4 with a hemoglobin of 7.9. The patient is able to swallow. Patient is currently on IV fluids at half-normal saline with potassium at the rate of 75 mL an hour. 07/02/2023, the patient is alert and awake and communicating. Episodic confusion. No agitation. No other significant events overnight. Tolerating diet. Is currently on room air oxygen. The patient is currently on Levemir insulin 15 units at bedtime and NovoLog and he is using a sliding scale coverage. He remains on Risperdal 2 mg twice a day in combination with Effexor. Labs from today was noted. BUN is at 11 with a creatinine of 0.7. Sodium level is at 139. The bronchoscope was at 4.3 with a hemoglobin of 8.2. The patient is seen today 07/03/2023 in follow-up in the regular medical floor. He is currently resting comfortably in bed. Awake and alert in no acute distress. He is maintaining good O2 saturations in the 90s on room air. White count 4.7. Hemoglobin 8.0. Platelets 194. Sodium 143. Potassium 3.8. Bicarb 23. BUN 10. Creatinine 0.8. Glucose 98. Blood cultures revealed no growth. He has a 0.45% normal saline with 20 mEq of KCl at 75 ML's per hour. Lovenox for DVT prophylaxis. The patient is seen today 07/04/2023 in follow-up on the regular medical floor. He is currently awake and alert. He is up walking with assistance 2 with physical therapy. He is maintaining good O2 saturations in the 90s on room air. Blood cultures revealed no growth. Blood glucose 232. He remains on Levemir and NovoLog sliding scale. Tolerating a consistent carbohydrate diet. Dysphagia level III, chopped Objective - Vital Signs Vital signs: Vital Signs Temp 97.9 F 07/04/23 13:57 Pulse 51 L 07/04/23 13:57 Resp 16 07/04/23 13:57 BP 120/65 07/04/23 13:57 Pulse Ox 96 07/04/23 13:57 FiO2 40 06/27/23 11:39 Intake & Output 07/03/23 07/04/23 07/04/23 18:59 06:59 18:59 Intake Total 1661.2 0 Output Total 5 Balance 1661.2 -5 Weight 87 kg Intake: Intake, IV Titration 1011.2 0 Amount Mvi, Adult No.4 with Vit 1011.2 0 K 10 ml Thiamine 100 mg Folic Acid 1 mg In 0.45% NaCl with KCl 20 Meq/l 1, 000 ml @ 75 mls/hr IV .BY DURATION HAYDE Rx#: [id number] Oral 650 Output: Stool 5 Other: Voiding Method Urinal # Voids 3 - Exam GENERAL EXAM: Alert, cooperative 63-year-old male, up with assistance 2, on room air, in no apparent distress. HEAD: Normocephalic. EYES: Normal reaction of pupils, equal size. NOSE: Clear with pink turbinates. THROAT: No erythema or exudates. NECK: No masses, no JVD. CHEST: No chest wall deformity. LUNGS: Equal air entry with no crackles, wheeze, rhonchi or dullness. CVS: S1 and S2 normal with no audible murmur, regular rhythm. ABDOMEN: No hepatosplenomegaly, normal bowel sounds, no guarding or rigidity. SPINE: No scoliosis or deformity SKIN: No rashes CENTRAL NERVOUS SYSTEM: No focal deficits, tone is normal in all 4 extremities. EXTREMITIES: There is no peripheral edema. No clubbing, no cyanosis. Peripheral pulses are intact. - Labs CBC & Chem 7: 07/03/23 06:41 07/03/23 06:41 Labs: Abnormal Lab Results - Last 24 Hours (Table) 07/03/23 07/03/23 07/04/23 Range/Units 16:49 20:19 06:00 POC Glucose (mg/dL) 425 H 257 H 134 H (70-110) mg/dL 07/04/23 Range/Units 11:03 POC Glucose (mg/dL) 232 H (70-110) mg/dL Microbiology - Last 24 Hours (Table) 06/30/23 12:23 Blood Culture - Preliminary Blood Assessment and Plan Assessment: Acute Hyperglycemia, related to mild DHHS. The patient is on Levemir 15 units at bedtime and a sliding scale coverage Diabetes mellitus type 2, poorly controlled Altered mental status, likely related to toxic metabolic encephalopathy, secondary to above. CAT scan of the brain showed some chronic white matter changes. No CVA. No seizure activity. The patient was given Prolixin 3 mg as needed, he was also started on risperidone 2 mg twice a day and he is also on Effexor. Patient was seen by psychiatry. Patient is clinically improving Poorly controlled diabetes mellitus. The patient will maintain on insulin on outpatient basis Leukocytosis, improved Mediastinal mass, CT report from outside facility identified a 2.3 x 1.6 x 2.1 cm mediastinal mass favoring to be originating from the right lobe of the thyroid. No evidence of any stridor. Ultrasound the thyroid showed a right thyroid nodule as discussed. Acute hypoxemic respiratory failure, initially on BiPAP at a pressure of 14/6 cm of water with FiO2 of 40%, recovered and currently on room air Acute kidney injury, no baseline creatinine available, improving and the patient is currently on IV fluids Hypernatremia History of uncontrolled insulin-dependent diabetes mellitus, hemoglobin A1c of 13.6 History of anxiety/depression/bipolar disorder, maintain on a combination of Seroquel, Effexor, Wellbutrin, and Depakote. Coronary artery disease with previous coronary artery bypass surgery Plan: The patient was seen and evaluated Medications and labs reviewed Currently stable and on room air Alert and cooperative, up with assistance 2 May require subacute rehab post discharge I have personally seen and examined the patient, performed the documentation and the assessment and plan as written. Number of minutes spent on the visit: 10.
[2023-07-04] MEDS: ASPIRIN 81 MG PO SCH (15:30)
[2023-07-04 16:24] LABS: Glucose,Whole Blood 200 mg/dL (70-110)
[2023-07-04 20:08] LABS: Glucose,Whole Blood 268 mg/dL (70-110)
[2023-07-04] MEDS: INSULIN DETEMIR (LEVEMIR) 100 UNIT/ML SYR SQ SCH (20:37)
[2023-07-04] MEDS: ATORVASTATIN 80 MG TAB PO SCH (20:37)
[2023-07-04] MEDS: DIVALPROEX ER 500 MG TAB.ER.24H PO SCH (20:37)
[2023-07-04] MEDS: MELATONIN 5 MG TABLET PO SCH (20:37)
[2023-07-04 21:42] VITALS: RESP 18
[2023-07-05 06:02] LABS: Glucose,Whole Blood 289 mg/dL (70-110)
[2023-07-05] MEDS: INSULIN ASPART (NovoLOG) 100 UNIT/ML VIAL SQ SCH ×2 (06:53→12:11)
[2023-07-05 07:58] VITALS: BP 167/70; PULSE 67; TEMP 98.6
[2023-07-05] MEDS: PANTOPRAZOLE 40 MG/10 ML VIAL IVP SCH (07:58)
[2023-07-05] MEDS: risperiDONE 2 MG TAB PO SCH (07:58)
[2023-07-05] MEDS: ENOXAPARIN 40 MG/0.4 ML SYRINGE SQ SCH (07:58)
[2023-07-05] MEDS: ISOSORBIDE MONONITRATE ER 30 MG TAB.ER.24H PO SCH (07:59)
[2023-07-05] MEDS: THIAMINE 100 MG/ML 2 ML VIAL IVP SCH (07:59)
[2023-07-05] MEDS: PROPRANOLOL 40 MG TAB PO SCH (07:59)
[2023-07-05] MEDS: EZETIMIBE 10 MG TAB PO SCH (07:59)
[2023-07-05] MEDS: VENLAFAXINE HCL ER 150 MG CAP PO SCH (07:59)
[2023-07-05 10:59] LABS: Glucose,Whole Blood 197 mg/dL (70-110)
--- NOTE | 2023-07-05 11:42 | P.DS ---
Providers Date of admission: 06/25/23 15:35 Expected date of discharge: 07/05/23 Attending physician: Murtaza Vaughan MD Consults: 06/25/23 20:05 Consult Physician Stat Consulting Provider: Salvador Recinos Consult Reason/Comments: icu management Do you want consulting provider notified?: Already Contacted 06/27/23 15:12 Consult Physician Routine Consulting Provider: Lidia Rodas Consult Reason/Comments: encephalopathy Do you want consulting provider notified?: Yes 06/28/23 10:27 Consult Physician Routine Consulting Provider: Tiago Avila Consult Reason/Comments: multiple psych meds, severe AMS Do you want consulting provider notified?: Yes Primary care physician: Stated None Hospital Course: Discharge Diagnosis: Acute metabolic encephalopathy with agitation Uncontrolled type 2 diabetes, A1c 13.6 mild DKA Pyrexia History of psychosis Normocytic anemia Thrombocytopenia Thyroid mass Acute kidney injury Urinary retention Dyslipidemia Hospital Course: 63-year-old male with no well known past medical history presented from outside hospital for hyperglycemia, altered mentation. On initial presentation, his WBC was 10.4, hemoglobin 9.5, anion gap 16, bicarb 24, BUN 85, creatinine 2.9, glucose 650, pH 7.358, pCO2 37, lactate 1.6, respiratory viral panel negative, troponin negative, acetone minimal, UA negative. EKG shows sinus rhythm. CT he ad showed no acute process. CT abdomen showed constipation and distended bladder. CT neck showed right lobe thyroid mass. Per records, patient received 2 mg of IV Haldol, 0.5 mg of IV Ativan as well as was started on insulin drip. Per report, patient received 5 mg of IV Versed on the way from other hospital. In the ED at our facility, patient saturating 95% on 3 L, rest of the vitals signs were otherwise normal limits. Point of care glucose was 532. Labs at our facility showed WBC of 11.9, hemoglobin of 10.4, BUN 90, creatinine on 08, glucose of 495, mildly elevated ALT of 68, ALP 153. Patient admitted for acute metabolic encephalopathy in the setting of HHS versus mild DKA. Was on insulin drip, now transitioned to subcutaneous. Encephalopathy improved and patient was transferred out of the ICU. Patient was evaluated by both neurology and psychiatry. Mental status back to normal. Being discharged to [facility]. Needs outpatient follow-up for thyroid mass, will likely need a biopsy Patient seen and examined at bedside. Vital signs reviewed and stable. General: nontoxic, no distress, appears at stated age Derm: warm, dry Head: atraumatic, normocephalic, symmetric Eyes: EOMI, no lid lag, anicteric sclera Mouth: no lip lesion, mucus membranes moist Cardiovascular: S1S2 reg, no murmur Lungs: CTA bilateral, no rhonchi, no rales , no accessory muscle use Abdominal: soft, nontender to palpation, no guarding, no appreciable organomegaly Ext: no gross muscle atrophy, no edema, no contractures Neuro: CN II-XI grossly intact, no focal neuro deficits Psych: Alert, oriented, appropriate affect A total of 33 minutes of time were spent preparing this complex discharge summary. Patient was discharged on 07/05/23 at 11:37. Patient Condition at Discharge: Stable Plan - Discharge Summary Discharge Rx Participant: No New Discharge Prescriptions: New INSULIN ASPART (NovoLOG) [NovoLOG (formulary)] 0 unit SQ AC-TID each Insulin Detemir (Levemir) [Levemir] 15 unit SQ HS each risperiDONE [RisperDAL] 2 mg PO BID tab Continue Propranolol HCl [Inderal] 160 mg PO DAILY@0800 Isosorbide Mononitrate ER [Imdur] 30 mg PO DAILY@0800 Ezetimibe [Zetia] 10 mg PO DAILY@0800 Divalproex ER [Depakote ER] 1,000 mg PO HS Vitamin E (Dl,Tocopheryl Acet) [Vitamin E (400 Iu = 180 mg)] 400 unit PO 0800,1500 Melatonin [Melatonin ER] 10 mg PO HS Vitamin E (Dl,Tocopheryl Acet) [Vitamin E (400 Iu = 180 mg)] 400 unit PO BID@0800,1500 Loratadine 10 mg PO DAILY@0800 Venlafaxine HCl ER [Effexor XR] 150 mg PO BID@0800,1500 Propranolol HCl [Inderal] 80 mg PO HS Omeprazole 40 mg PO DAILY@0800 Nitroglycerin Sl Tabs [Nitrostat] 0.4 mg SL Q5M PRN PRN Reason: Chest Pain Cyanocobalamin/Mecobalamin/Folic Acid 1 tab PO DAILY@1500 Atorvastatin [Lipitor] 80 mg PO HS Aspirin EC [Ecotrin Low Dose] 81 mg PO DAILY@1500 Discontinued QUEtiapine FUMARATE [SEROquel] 300 mg PO HS Insulin Aspart [NovoLOG Flexpen] 28 units SQ AC-SUPPER Insulin Aspart [NovoLOG Flexpen] See Protocol SQ AC-TID Meclizine [Antivert] 12.5 mg PO BID@0800,2100 Meclizine [Antivert] 25 mg PO DAILY@1500 Insulin Glargine,Hum.rec.anlog [Lantus Solostar Pen] 34 units SQ HS Insulin Aspart [NovoLOG Flexpen] 25 units SQ AC-BRKFST Insulin Aspart [NovoLOG Flexpen] 15 units SQ AC-LUNCH Furosemide [Lasix] 80 mg PO DAILY@0800 buPROPion SR [Wellbutrin SR] 150 mg PO BID@0700 Discharge Medication List Aspirin EC [Ecotrin Low Dose] 81 mg PO DAILY@1500 06/25/23 [History] Atorvastatin [Lipitor] 80 mg PO HS 06/25/23 [History] Cyanocobalamin/Mecobalamin/Folic Acid 1 tab PO DAILY@1500 06/25/23 [History] Divalproex ER [Depakote ER] 1,000 mg PO HS 06/25/23 [History] Ezetimibe [Zetia] 10 mg PO DAILY@0800 06/25/23 [History] Isosorbide Mononitrate ER [Imdur] 30 mg PO DAILY@0800 06/25/23 [History] Loratadine 10 mg PO DAILY@0800 06/25/23 [History] Nitroglycerin Sl Tabs [Nitrostat] 0.4 mg SL Q5M PRN 06/25/23 [History] Omeprazole 40 mg PO DAILY@0800 06/25/23 [History] Propranolol HCl [Inderal] 80 mg PO HS 06/25/23 [History] Propranolol HCl [Inderal] 160 mg PO DAILY@0800 06/25/23 [History] Venlafaxine HCl ER [Effexor XR] 150 mg PO BID@0800,1500 06/25/23 [History] Vitamin E (Dl,Tocopheryl Acet) [Vitamin E (400 Iu = 180 mg)] 400 unit PO BID@0800,1500 06/25/23 [History] Melatonin [Melatonin ER] 10 mg PO HS 06/26/23 [History] Vitamin E (Dl,Tocopheryl Acet) [Vitamin E (400 Iu = 180 mg)] 400 unit PO 0800,1500 06/26/23 [History] INSULIN ASPART (NovoLOG) [NovoLOG (formulary)] 0 unit SQ AC-TID each 07/05/23 [Rx] Insulin Detemir (Levemir) [Levemir] 15 unit SQ HS each 07/05/23 [Rx] risperiDONE [RisperDAL] 2 mg PO BID tab 07/05/23 [Rx] Follow up Appointment(s)/Referral(s): Rainer Franco, [NON-STAFF] - As Needed None,Stated [Primary Care Provider] - 1-2 days Patient Instructions/Handouts: Diabetic Ketoacidosis (DC), Encephalopathy (DC) Activity/Diet/Wound Care/Special Instructions: Please see your PCP. He will also likely need biopsy of the thyroid mass. Discharge Disposition: TRANSFER TO SNF/ECF
[2023-07-05] MEDS: [UNRECOGNIZED DRUG - REMARK] IV SCH ×4 (12:08)
--- NOTE | 2023-07-05 12:52 | P.PN ---
Subjective Progress Note Date: 07/05/23 I am seeing this patient in new consultation today 06/26/2023 in the intensive care unit after the patient was transferred from [facility] for altered mental status and high blood sugars. Patient is a 63-year-old white male whose past medical history is largely unknown. He is currently confused and obtunded, unable to answer questions. Apparently, patient presented to [facility] yesterday he was found to be combative and confused. His blood sugars were also found to be severely high at 808 g/dL. Serum CO2 was 20, anion gap 23. Ketones were mildly positive. Possible in mild DKA vs HHS. Patient did have an initial workup, including a brain CT which did not show any acute intracranial process. Urine drug screen also negative. EtOH level at our facility was less than 10. A CT of the chest done at the outside facility reported a mass within the superior mediastinum favoring to be from the right lobe of the thyroid. There were also postsurgical open-heart changes, and dependent atelectasis without acute infiltrates. Upon transfer, the patient became combative and agitated. He required restraints, multiple doses of Ativan, and a dose of Zyprexa. Patient was then admitted to the intensive care unit, and started on Precedex which is currently infusing at 0.12 mcg/kg per hour. He is fairly sedated on this dose, and it could be weaned down. He does not follow commands, briefly opens his eyes to painful stimuli. He is currently on 3 L nasal cannula. SpO2 was in reading at 98%. Insulin is currently infusing at 12.7 units per hour. Most recent BMP at our facility shows a sodium of 150, potassium 4, chloride 112, serum bicarb of 29, anion gap 9, BUN 72, creatinine 1.76, and blood glucose is down to 166. D5W/half-normal saline with 20 meq K is infusing at 150 ML's per hour. Patient's hemoglobin A1c is 13.6. LFTs are mildly elevated. TSH level was 1.24. CBC done in our facility shows a WBC count 11.9, hemoglobin 10.4, hematocrit 29, platelets 187. Urinalysis not significant for urinary tract infection. He is afebrile. Vital signs are stable. He will be monitored in the intensive care unit. On 06/27/2023, the patient is being seen for a follow-up. The patient was transferred to us for altered mental status and hyperglycemia related to hyperosmolar nonketotic state. The patient remains in the intensive care unit. The patient remains on a BiPAP at pressure 14/6 cm of water with an FiO2 of 40%. Overnight, he was quite restless and agitated. He remains on 2 point restraints. He was given a total of 5 mg of Ativan overnight. This morning, is quite comfortable and his synchronous with the BiPAP machine. He remains encephalopathic for now. Precedex is also running at 0.7 mcg/kg/h to control his agitation. CAT scan of the brain showed some chronic microvascular changes. The patient remains on IV fluids. He is currently on half-normal saline at the rate of 150 mL an hour. Is also on an insulin drip at 3 units an hour. Blood sugars under better control for now. In terms of his blood work, no new labs are available from today. Most recent labs are from yesterday and morning labs are still pending for now. His chest x-ray showed no acute abnormalities. Ultrasound the kidneys showed no evidence of any hydronephrosis. There was a concern of a neck/thyroid mass and for that reason, the patient was given an ul trasound of the thyroid that showed a a 2.2 x 2.5 x 2.0 cm mixed cystic and solid nodule on the right. Hemodynamically stable. Cardiac rhythm is sinus. No other significant issues overnight. On today's evaluation of 06/28/2023, the patient is restless and is thrashing in bed. Nevertheless, he seems to be more alert and awake compared to yesterday. His opening up his eyes and is trying to get out of bed. He has a sitter at the bedside. He remains on Precedex which is running at 0.9 microvascular kilogram per minutes. He was also given Ativan overnight and he was getting frequent doses. The patient is currently off BiPAP. He was taken off BiPAP yesterday midday and he was placed on nasal cannula at 2 L. No signs of any respiratory distress. No neck stiffness. No fever. No hemodynamic instability. No hypoxemia. He is hemodynamically stable. BUN is at 50 with a creatinine 0.8 and a sodium level is at 142 and the patient is on normal saline at rate of 75 mL an hour. I'll discuss 4.4 with a hemoglobin of 8.4. He remains nothing by mouth. Unable to take his oral medication as the patient is quite altered mentally and his swallow is not properly at this point in time. On today's evaluation of 06/29/2023, I'm seeing the patient for a follow-up. Agitation or restlessness and delirium is an ongoing issue for this patient. The patient is currently on Precedex at 0.8 mcg/kg/h. This needs to be gradually weaned off. I noticed that he is a is able to communicate more effectively and he was able to mention his date of today. He is not consistently following commands. Neurologic exam is nonfocal at this point in time and the patient is moving all 4 extremities without any limitation. Hemodynamically stable. Is on oxygen at 2 L nasal cannula. He has limited on multiple psychotropic medications on outpatient basis including Seroquel, they are milligrams at bedtime, Effexor XL are 150 mg by mouth twice a day, Wellbutrin SR 150 mg by mouth twice a day and Depakote 1 g at bedtime. Note that those medications have not been started the patient hasn't been able to safely swallow. The patient has a sitter at the bedside. In terms of blood sugar control, the patient was having episodes of hypoglycemia. Based on that, the Levemir insulin was placed on hold and the blood sugars are gradually on the rise and the patient will be started on a lower dose of Levemir for now in addition to a sliding scale coverage. IV fluids are currently running at 75 mL an hour and the patient is on oxygen at 2 L nasal cannula. EEG was done yesterday and it showed no seizure activity. The patient has abnormal EEG with moderate lowering and this is indicative of generalized cerebral dysfunction. Neurology consultation was also performed and that input is appreciated. On today's evaluation of 06/30/2023, seeing the patient for a follow-up. Is currently off Precedex and this medication was discontinued this morning. He is awake and communicating. He remains confused. He is pleasantly confused. He cannot answer all questions appropriately. He continues to try to get out of bed. He was seen by psychiatry yesterday. He was started on Risperdal 1 mg twice a day. He was also started on Effexor XR 150 mg twice a day and Depakote will be discontinued and the patient will be given Prolixin 30 mg IM every 8 hours on an as-needed basis. He is on room air oxygen. No signs of any respiratory distress. BiPAP has been discontinued. He remains on Levemir insulin 10 units daily. He is on Lovenox portably prophylaxis. Labs from today show a white cell count of 5.2 with a hemoglobin of 8.4. Sodium level is at 148 and the patient is currently on normal saline at the rate of 75 mL an hour. His potassium levels at 3.2. The ends of 50 with a creatinine of 0.8. On 07/01/2023, the patient is communicating. Remains somewhat confused. He is on room air oxygen. Moving all 4 extremities. He has generalized global weakness in all 4 extremities. Mental status is still cloudy and the patient is alert and oriented 1 only. No focal neurological deficits. No headaches. No seizure activity. He was seen by psychiatry. The patient is currently on Prolixin 3 mg IM every 8 hours. Is being given as needed. Is also on Effexor or X are 150 mg by mouth twice a day and Risperdal 1 mg twice a day. Noted the patient has not required Prolixin overnight. The patient is also off Precedex. His blood sugars are on the lower side and the patient is currently on Levemir insulin at 20 units an hour. Otherwise, his condition is stable. Hemodynamically stable. BUN is 11 with a creatinine of 0.7 sodium is 143. The white cell count of 5.4 with a hemoglobin of 7.9. The patient is able to swallow. Patient is currently on IV fluids at half-normal saline with potassium at the rate of 75 mL an hour. 07/02/2023, the patient is alert and awake and communicating. Episodic confusion. No agitation. No other significant events overnight. Tolerating diet. Is currently on room air oxygen. The patient is currently on Levemir insulin 15 units at bedtime and NovoLog and he is using a sliding scale coverage. He remains on Risperdal 2 mg twice a day in combination with Effexor. Labs from today was noted. BUN is at 11 with a creatinine of 0.7. Sodium level is at 139. The bronchoscope was at 4.3 with a hemoglobin of 8.2. The patient is seen today 07/03/2023 in follow-up in the regular medical floor. He is currently resting comfortably in bed. Awake and alert in no acute distress. He is maintaining good O2 saturations in the 90s on room air. White count 4.7. Hemoglobin 8.0. Platelets 194. Sodium 143. Potassium 3.8. Bicarb 23. BUN 10. Creatinine 0.8. Glucose 98. Blood cultures revealed no growth. He has a 0.45% normal saline with 20 mEq of KCl at 75 ML's per hour. Lovenox for DVT prophylaxis. The patient is seen today 07/04/2023 in follow-up on the regular medical floor. He is currently awake and alert. He is up walking with assistance 2 with physical therapy. He is maintaining good O2 saturations in the 90s on room air. Blood cultures revealed no growth. Blood glucose 232. He remains on Levemir and NovoLog sliding scale. Tolerating a consistent carbohydrate diet. Dysphagia level III, chopped The patient is seen today 07/05/2023 in follow-up on the regular medical floor. He is awake and alert in no acute distress. He is maintaining good O2 saturation in the 90s on room air. He denies any worsening shortness of breath, cough or congestion. Blood cultures reveal no growth. Glucose 197. He remains on Lovenox for DVT prophylaxis. Continued on insulin. Tolerating a dysphagia 3 chopped diet. Family is at the bedside. Objective - Vital Signs Vital signs: Vital Signs Temp 98.6 F 07/05/23 07:00 Pulse 67 07/05/23 07:00 Resp 18 07/05/23 07:00 BP 167/70 07/05/23 07:00 Pulse Ox 96 07/05/23 07:00 FiO2 40 06/27/23 11:39 Intake & Output 07/04/23 07/05/23 07/05/23 18:59 06:59 18:59 Other: Voiding Method Toilet # Voids 3 3 1 # Bowel Movements 1 - Exam GENERAL EXAM: Alert, cooperative 63-year-old male, resting in bed, on room air, in no apparent distress. HEAD: Normocephalic. EYES: Normal reaction of pupils, equal size. NOSE: Clear with pink turbinates. THROAT: No erythema or exudates. NECK: No masses, no JVD. CHEST: No chest wall deformity. LUNGS: Equal air entry with no crackles, wheeze, rhonchi or dullness. CVS: S1 and S2 normal with no audible murmur, regular rhythm. ABDOMEN: No hepatosplenomegaly, normal bowel sounds, no guarding or rigidity. SPINE: No scoliosis or deformity SKIN: No rashes CENTRAL NERVOUS SYSTEM: No focal deficits, tone is normal in all 4 extremities. EXTREMITIES: There is no peripheral edema. No clubbing, no cyanosis. Peripheral pulses are intact. - Labs CBC & Chem 7: 07/03/23 06:41 07/03/23 06:41 Labs: Abnormal Lab Results - Last 24 Hours (Table) 07/04/23 07/04/23 07/05/23 Range/Units 16:23 20:06 06:01 POC Glucose (mg/dL) 200 H 268 H 289 H (70-110) mg/dL 07/05/23 Range/Units 10:56 POC Glucose (mg/dL) 197 H (70-110) mg/dL Assessment and Plan Assessment: Acute Hyperglycemia, related to mild DHHS. The patient is on Levemir 15 units at bedtime and a sliding scale coverage Diabetes mellitus type 2, poorly controlled Altered mental status, likely related to toxic metabolic encephalopathy, secondary to above. CAT scan of the brain showed some chronic white matter changes. No CVA. No seizure activity. The patient was given Prolixin 3 mg as needed, he was also started on risperidone 2 mg twice a day and he is also on Effexor. Patient was seen by psychiatry. 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 No evidence of any stridor. Ultrasound the thyroid showed a right thyroid nodule as discussed. Acute hypoxemic respiratory failure, initially on BiPAP at a pressure of 14/6 cm of water with FiO2 of 40%, recovered and currently on room air Acute kidney injury, no baseline creatinine available, improving and the patient is currently on IV fluids Hypernatremia History of uncontrolled insulin-dependent diabetes mellitus, hemoglobin A1c of 13.6 History of anxiety/depression/bipolar disorder, maintain on a combination of Seroquel, Effexor, Wellbutrin, and Depakote. Coronary artery disease with previous coronary artery bypass surgery Plan: The patient was seen and evaluated Medications and labs reviewed Currently stable and on room air Alert and cooperative currently Plan is for subacute rehab at [facility] post discharge I have personally seen and examined the patient, performed the documentation and the assessment and plan as written. Number of minutes spent on the visit: 10.
== END 2023-07-05 13:33 | DRG 637 ==
LOC: EC 13:41 → 3SCARD 15:35 → 2SICU 19:52 → 4SSUR 07-02 17:58
PROVIDERS: ADMIT Student in an Organized Health Care Education/Training Program; ATTEND Student in an Organized Health Care Education/Training Program
PROC: 5A09457 Assistance with Respiratory Ventilation, 24-96 Consecutive Hours, Continuous Positive Airway Pressure (ICD-10-PCS; principal; 2023-06-26)
DX: E11.10 Type 2 diabetes mellitus with ketoacidosis without coma (principal); J96.01 Acute respiratory failure with hypoxia; N17.9 Acute kidney failure, unspecified; J98.11 Atelectasis; Z79.4 Long term (current) use of insulin; I25.10 Atherosclerotic heart disease of native coronary artery without angina pectoris; R50.9 Fever, unspecified; D64.9 Anemia, unspecified; K59.00 Constipation, unspecified; E78.5 Hyperlipidemia, unspecified; E11.42 Type 2 diabetes mellitus with diabetic polyneuropathy; E11.65 Type 2 diabetes mellitus with hyperglycemia; R45.1 Restlessness and agitation; I25.2 Old myocardial infarction; R13.10 Dysphagia, unspecified; D69.6 Thrombocytopenia, unspecified; N20.0 Calculus of kidney; F10.21 Alcohol dependence, in remission; F31.9 Bipolar disorder, unspecified; E04.1 Nontoxic single thyroid nodule; Z78.1 Physical restraint status; F90.9 Attention-deficit hyperactivity disorder, unspecified type; R33.9 Retention of urine, unspecified; E86.0 Dehydration; Z20.822 Contact with and (suspected) exposure to COVID-19; Z79.82 Long term (current) use of aspirin; Z79.899 Other long term (current) drug therapy; Z88.0 Allergy status to penicillin; Z91.040 Latex allergy status; Z81.8 Family history of other mental and behavioral disorders; Z82.49 Family history of ischemic heart disease and other diseases of the circulatory system; Z83.3 Family history of diabetes mellitus; Z95.1 Presence of aortocoronary bypass graft
CPT/HCPCS: 36415; 51702; 71045; 76536; 76770; 80048; 80051; 80053; 80164; 80320; 81001; 82565; 82607; 82746; 82947; 83010; 83036; 83615; 83735; 83930; 84100; 84132; 84145; 84443; 84520; 85025; 85027; 85045; 87040; 87636; 93005; 94660; 94760; 95816; 96360; 96361; 99285

== ENCOUNTER 2023-07-29 20:06 | Inpatient (IN) | payer MEDICARE ==
[2023-07-29] MEDS: SODIUM CHLORIDE 0.9% 1,000 ML IV SCH (20:28)
[2023-07-29 20:31] LABS: Glucose,Whole Blood >600 mg/dL (70-110)
[2023-07-29 20:34] LABS: VBG PH 7.29 (7.31-7.41)
[2023-07-29 20:35] LABS: Basophils % (A) 0 %; Eosinophils % (A) 0 %; HCT 24.4 % (39.0-53.0); HGB 8.4 gm/dL (13.0-17.5); Lymphocytes # (A) 0.8 k/uL (1.0-4.8); Lymphocytes % (A) 10 %; MCH 32.8 pg (25.0-35.0); MCHC 34.3 g/dL (31.0-37.0); MCV 95.5 fL (80.0-100.0); Mean Platelet Volume 9.5; Monocytes # (A) 0.8 k/uL (0-1.0); Monocytes % (A) 11 %; Neutrophils # (A) 5.6 k/uL (1.3-7.7); Neutrophils % (A) 76 %; Platelet Count 144 k/uL (150-450); RBC 2.55 m/uL (4.30-5.90); RDW 13.6 % (11.5-15.5); WBC 7.4 k/uL (3.8-10.6)
--- NOTE | 2023-07-29 20:44 | ED ---
General Adult HPI - General Stated complaint: DKA Time Seen by Provider: 07/29/23 20:13 Source: patient, EMS Mode of arrival: EMS - History of Present Illness Initial comments: Salvador is a 63yo M with PMH of insulin dependent diabetes who is transferred to the ER today from [facility] for DKA. Apparently the patient's DEXA calm him been reading high since and today he began feeling very unwell so he decided to go the ER. Upon arrival is found that his glucose was 1550. Patient had high anion gap metabolic acidosis and it was determined he was in DKA. The patient was started on an insulin drip transferred to our hospital for further treatment. - Related Data Home Medications Medication Instructions Recorded Confirmed Aspirin EC [Ecotrin Low Dose] 81 mg PO DAILY@1500 06/25/23 06/26/23 Atorvastatin [Lipitor] 80 mg PO HS 06/25/23 06/26/23 Cyanocobalamin/Mecobalamin/Folic 1 tab PO DAILY@1500 06/25/23 06/26/23 Acid Divalproex ER [Depakote ER] 1,000 mg PO HS 06/25/23 06/26/23 Ezetimibe [Zetia] 10 mg PO DAILY@0800 06/25/23 06/26/23 Isosorbide Mononitrate ER [Imdur] 30 mg PO DAILY@0800 06/25/23 06/26/23 Loratadine 10 mg PO DAILY@0800 06/25/23 06/26/23 Nitroglycerin Sl Tabs [Nitrostat] 0.4 mg SL Q5M PRN 06/25/23 06/25/23 Omeprazole 40 mg PO DAILY@0800 06/25/23 06/26/23 Propranolol HCl [Inderal] 80 mg PO HS 06/25/23 06/26/23 Propranolol HCl [Inderal] 160 mg PO DAILY@0800 06/25/23 06/26/23 Venlafaxine HCl ER [Effexor XR] 150 mg PO BID@0800,1500 06/25/23 06/26/23 Vitamin E (Dl,Tocopheryl Acet) 400 unit PO BID@0800,1500 06/25/23 06/26/23 [Vitamin E (400 Iu = 180 mg)] Melatonin [Melatonin ER] 10 mg PO HS 06/26/23 06/26/23 Vitamin E (Dl,Tocopheryl Acet) 400 unit PO 0800,1500 06/26/23 06/26/23 [Vitamin E (400 Iu = 180 mg)] Previous Rx's Medication Instructions Recorded INSULIN ASPART (NovoLOG) [NovoLOG 0 unit SQ AC-TID each 07/05/23 (formulary)] Insulin Detemir (Levemir) [Levemir] 15 unit SQ HS each 07/05/23 risperiDONE [RisperDAL] 2 mg PO BID tab 07/05/23 Allergies Allergy/AdvReac Type Severity Reaction Status Date / Time latex Allergy Itching Verified 07/29/23 20:17 Penicillins Allergy Itching Verified 07/29/23 20:17 Review of Systems ROS Statement: Those systems with pertinent positive or pertinent negative responses have been documented in the HPI. ROS Other: All systems not noted in ROS Statement are negative. Past Medical History Past Medical History: Diabetes Mellitus, GERD/Reflux, Hyperlipidemia Additional Past Medical History / Comment(s): neuropathy, iron deficiency anemia, insomnia, History of Any Multi-Drug Resistant Organisms: Unobtainable Past Surgical History: Unable to Obtain Additional Past Surgical History / Comment(s): 2009 CABG, hernia Past Anesthesia/Blood Transfusion Reactions: No Reported Reaction Past Psychological History: Anxiety, Bipolar, Depression Smoking Status: Unknown if ever smoked Past Alcohol Use History: Unable to Obtain Past Drug Use History: Unable to Obtain - Past Family History Mother Family Medical History: Coronary Artery Disease (CAD), Diabetes Mellitus General Exam - General Exam Comments Initial Comments: Physical Exam GENERAL: Chronically ill appearing HENT: Normocephalic, Atraumatic. EYES: PERRL, EOMI PULMONARY: Unlabored respirations. No audible rales rhonchi or wheezing was noted. CARDIOVASCULAR: There is a regular rate and rhythm without any murmurs gallops or rubs. ABDOMEN: Soft and nontender with normal bowel sounds. SKIN: Pale : Deferred NEUROLOGIC: Patient is alert and oriented x3. Moving all extremities spontaneously MUSCULOSKELETAL: Normal extremities with adequate strength and full range of motion. No lower extremity swelling or edema. No calf tenderness. PSYCHIATRIC: Normal psychiatric evaluation. Course Vital Signs 07/29/23 07/29/23 20:08 20:57 Temperature 98.4 F Pulse Rate 68 69 Respiratory 20 18 Rate Blood Pressure 126/70 92/64 O2 Sat by Pulse 95 97 Oximetry Medical Decision Making - Medical Decision Making Was pt. sent in by a medical professional or institution (MARIA Thomas, [employer], urgent care, hospital, or [place] health care facility...) When possible be specific @ -Yes, transferred from [facility] Did you speak to anyone other than the patient for history (EMS, parent, family, police, friend...)? What history was obtained from this source @ -Yes EMS Did you review nursing and triage notes (agree or disagree)? Why? @ -I reviewed and agree with nursing and triage notes Were old charts reviewed (outside hosp., previous admission, EMS record, old EKG, old radiological studies, urgent care reports/EKG's, [place] health care facility records)? Report findings @ -Transfer packet was reviewed Differential Diagnosis (chest pain, altered mental status, abdominal pain women, abdominal pain men, vaginal bleeding, weakness, fever, dyspnea, syncope, headache, dizziness, GI bleed, back pain, seizure, CVA, palpatations, mental health)? @ -Differential includes DKA, HHS EKG interpreted by me (3pts min.). @ -As above X-rays interpreted by me (1pt min.). @ -None done CT interpreted by me (1pt min.). @ -None done U/S interpreted by me (1pt. min.). @ -None done What testing was considered but not performed or refused? (CT, X-rays, U/S, labs)? Why? @ -None What meds were considered but not given or refused? Why? @Fluid and insulin boluses were held as they had been appropriately administered at previous facility Did you discuss the management of the patient with other professionals (professionals i.e. MARIA Thomas, [employer], lab, RT, psych nurse, social research assistant, industrial security analyst, teacher, community service patrol officer, case management assistant)? Give summary @ -No Was smoking cessation discussed for >3mins.? @ -No Was critical care preformed (if so, how long)? @ -Yes, 30 minutes Were there social determinants of health that impacted care today? How? (Homelessness, low income, unemployed, alcoholism, drug addiction, transportation, low edu. Level, literacy, decrease access to med. care, fci, re hab)? @ -No Was there de-escalation of care discussed even if they declined (Discuss DNR or withdrawal of care, Hospice)? DNR status @ -No What co-morbidities impacted this encounter? (DM, HTN, Smoking, COPD, CAD, Cancer, CVA, ARF, Chemo, Hep., AIDS, mental health diagnosis, sleep apnea, morbid obesity)? @ -Diabetes Was patient admitted / discharged? Hospital course, mention meds given and route, prescriptions, significant lab abnormalities, going to OR and other pertinent info. @ -Admit The patient was seen and evaluated, history was obtained from the patient and medical record. Patient presented to outside hospital 3 days of hyperglycemia found to be in DKA. Patient also noted to have hyperkalemia outside hospital potassium above 7. He received treatment for that with insulin and fluids calcium and repeat labs showed improving hyperkalemia. Upon arrival patient was awake alert and oriented. Denied recent illness admitted to poor compliance with his insulin regimen. Repeat labs here show that patient says mild DKA with hyperglycemia elevated anion gap and metabolic acidosis. Patient had already better than she insulin and insulin weight-based was continued per protocol. Patient IV fluids were continued. Patient will be admitted to the floor for DKA. Patient was accepted by [facility] for [facility] hospitalist group. Undiagnosed new problem with uncertain prognosis? @ -No Drug Therapy requiring intensive monitoring for toxicity (Heparin, Nitro, Insulin, Cardizem)? @ -Yes, insulin infusion Were any procedures done? @ -No Diagnosis/symptom? @ -DKA Acute, or Chronic, or Acute on Chronic? @ -default Uncomplicated (without systemic symptoms) or Complicated (systemic symptoms)? @ -Complicated Side effects of treatment? @ -No Exacerbation, Progression, or Severe Exacerbation? @ -No Poses a threat to life or bodily function? How? (Chest pain, [place], [place], pneumonia, PE, COPD, DKA, ARF, appy, cholecystitis, CVA, Diverticulitis, Homicidal, Suicidal, threat to staff... and all critical care pts) @ -Yes - Lab Data Result diagrams: 07/29/23 20:24 07/29/23 20:24 Lab Results 07/29/23 07/29/23 07/29/23 Range/Units 20:24 20:24 20:24 WBC 7.4 (3.8-10.6) k/uL RBC 2.55 L (4.30-5.90) m/uL Hgb 8.4 L (13.0-17.5) gm/dL Hct 24.4 L (39.0-53.0) % MCV 95.5 (80.0-100.0) fL MCH 32.8 (25.0-35.0) pg MCHC 34.3 (31.0-37.0) g/dL RDW 13.6 (11.5-15.5) % Plt Count 144 L (150-450) k/uL MPV 9.5 Neutrophils % 76 % Lymphocytes % 10 % Monocytes % 11 % Eosinophils % 0 % Basophils % 0 % Neutrophils # 5.6 (1.3-7.7) k/uL Lymphocytes # 0.8 L (1.0-4.8) k/uL Monocytes # 0.8 (0-1.0) k/uL Eosinophils # 0.0 (0-0.7) k/uL Basophils # 0.0 (0-0.2) k/uL VBG pH (7.31-7.41) VBG pCO2 (37-51) mmHg VBG HCO3 (24-28) mmol/L Sodium 140 (137-145) mmol/L Potassium 4.8 (3.5-5.1) mmol/L Chloride 105 (98-107) mmol/L Carbon Dioxide 20 L (22-30) mmol/L Anion Gap 15 mmol/L BUN 63 H (9-20) mg/dL Creatinine 1.59 H (0.66-1.25) mg/dL Est GFR (CKD-EPI)AfAm 52 (>60 ml/min/1.73 sqM) Est GFR (CKD-EPI)NonAf 45 (>60 ml/min/1.73 sqM) Glucose 941 H* (74-99) mg/dL POC Glucose (mg/dL) (70-110) mg/dL POC Glu Body Piercer ID Plasma Lactic Acid Steve 1.3 (0.7-2.0) mmol/L Calcium 8.6 (8.4-10.2) mg/dL Magnesium 2.6 H (1.6-2.3) mg/dL Total Bilirubin 0.3 (0.2-1.3) mg/dL AST 46 (17-59) U/L ALT 49 (4-49) U/L Alkaline Phosphatase 261 H (38-126) U/L Total Protein 5.8 L (6.3-8.2) g/dL Albumin 3.4 L (3.5-5.0) g/dL Acetone, Qual Positive (Negative) 07/29/23 07/29/23 Range/Units 20:24 20:25 WBC (3.8-10.6) k/uL RBC (4.30-5.90) m/uL Hgb (13.0-17.5) gm/dL Hct (39.0-53.0) % MCV (80.0-100.0) fL MCH (25.0-35.0) pg MCHC (31.0-37.0) g/dL RDW (11.5-15.5) % Plt Count (150-450) k/uL MPV Neutrophils % % Lymphocytes % % Monocytes % % Eosinophils % % Basophils % % Neutrophils # (1.3-7.7) k/uL Lymphocytes # (1.0-4.8) k/uL Monocytes # (0-1.0) k/uL Eosinophils # (0-0.7) k/uL Basophils # (0-0.2) k/uL VBG pH 7.29 L (7.31-7.41) VBG pCO2 44 (37-51) mmHg VBG HCO3 21 L (24-28) mmol/L Sodium (137-145) mmol/L Potassium (3.5-5.1) mmol/L Chloride (98-107) mmol/L Carbon Dioxide (22-30) mmol/L Anion Gap mmol/L BUN (9-20) mg/dL Creatinine (0.66-1.25) mg/dL Est GFR (CKD-EPI)AfAm (>60 ml/min/1.73 sqM) Est GFR (CKD-EPI)NonAf (>60 ml/min/1.73 sqM) Glucose (74-99) mg/dL POC Glucose (mg/dL) >600 H (70-110) mg/dL POC Glu Body Piercer ID Ashlee Yates Plasma Lactic Acid Steve (0.7-2.0) mmol/L Calcium (8.4-10.2) mg/dL Magnesium (1.6-2.3) mg/dL Total Bilirubin (0.2-1.3) mg/dL AST (17-59) U/L ALT (4-49) U/L Alkaline Phosphatase (38-126) U/L Total Protein (6.3-8.2) g/dL Albumin (3.5-5.0) g/dL Acetone, Qual (Negative) Disposition Clinical Impression: DKA, type 2 Disposition: ADMITTED IP TO [facility] Condition: Serious Is patient prescribed a controlled substance at d/c from ED?: No Referrals: None,Stated [Primary Care Provider] - 1-2 days
[2023-07-29 20:55] LABS: ALT 49 U/L (4-49); AST 46 U/L (17-59); African American GFR (CKD) 52 (>60 ml/min/1.73 sqM); Albumin 3.4 g/dL (3.5-5.0); Alkaline Phosphatase 261 U/L (38-126); Anion Gap 15 mmol/L; Blood Urea Nitrogen 63 mg/dL (9-20); Calcium 8.6 mg/dL (8.4-10.2); Carbon Dioxide 20 mmol/L (22-30); Chloride 105 mmol/L (98-107); Magnesium 2.6 mg/dL (1.6-2.3); Non-African American GFR(CKD) 45 (>60 ml/min/1.73 sqM); Sodium 140 mmol/L (137-145); Total Bilirubin 0.3 mg/dL (0.2-1.3); Total Protein 5.8 g/dL (6.3-8.2)
[2023-07-29 21:02] LABS: Potassium 4.8 mmol/L (3.5-5.1)
[2023-07-29 21:16] LABS: Glucose 941 mg/dL (74-99)
[2023-07-29] MEDS ORDERED: DEXTROSE 50% SYRINGE 50 ML IVP PRN ×2 (21:47)
[2023-07-29] MEDS ORDERED: INSULIN REGULAR 100 UNIT in SODIUM CHLORIDE 0.9% 100 ML IV SCH (22:00)
[2023-07-29] MEDS ORDERED: NALOXONE 0.4 MG/ML 1 ML VIAL IV PRN (22:03)
[2023-07-29 22:28] LABS: Glucose,Whole Blood >600 mg/dL (70-110)
[2023-07-29 23:42] LABS: Glucose,Whole Blood >600 mg/dL (70-110)
[2023-07-30 01:03] LABS: Glucose,Whole Blood >600 mg/dL (70-110)
[2023-07-30 02:06] LABS: Glucose,Whole Blood >600 mg/dL (70-110)
[2023-07-30 03:14] LABS: Glucose,Whole Blood >600 mg/dL (70-110)
[2023-07-30 03:21] LABS: African American GFR (CKD) 53 (>60 ml/min/1.73 sqM); Anion Gap 12 mmol/L; Blood Urea Nitrogen 62 mg/dL (9-20); Carbon Dioxide 23 mmol/L (22-30); Chloride 110 mmol/L (98-107); Non-African American GFR(CKD) 46 (>60 ml/min/1.73 sqM); Phosphorus 4.2 mg/dL (2.5-4.5); Potassium 4.3 mmol/L (3.5-5.1); Sodium 145 mmol/L (137-145)
[2023-07-30 03:23] LABS: Glucose 606 mg/dL (74-99)
[2023-07-30 04:07] LABS: Glucose,Whole Blood 487 mg/dL (70-110)
[2023-07-30] MEDS ORDERED: Potassium Replacement Protocol 1 EACH MISC MISCELLANE PRN (04:23)
[2023-07-30] MEDS ORDERED: INSULIN REGULAR BOLUS (FROM DRIP BAG) IV ONE (04:23)
[2023-07-30] MEDS ORDERED: Magnesium Replacement Protocol 1 EACH MISC MISCELLANE PRN (04:23)
[2023-07-30] MEDS ORDERED: NITROGLYCERIN SL TABS 0.4 MG TAB SUBLINGUAL PRN (04:27)
[2023-07-30] MEDS ORDERED: INSULIN REGULAR 100 UNIT in SODIUM CHLORIDE 0.9% 100 ML IV SCH (04:30)
[2023-07-30] MEDS ORDERED: SODIUM CHLORIDE 0.9% 1,000 ML IV SCH (04:30)
[2023-07-30 05:18] LABS: Glucose,Whole Blood 432 mg/dL (70-110)
[2023-07-30 06:17] LABS: Glucose,Whole Blood 384 mg/dL (70-110)
[2023-07-30] MEDS: SODIUM CHLORIDE 0.9% 1,000 ML IV SCH (06:29)
[2023-07-30] MEDS: PANTOPRAZOLE 40 MG TABLET PO SCH (06:29)
[2023-07-30 07:49] LABS: Glucose,Whole Blood 329 mg/dL (70-110)
[2023-07-30 08:38] LABS: African American GFR (CKD) 63 (>60 ml/min/1.73 sqM); Anion Gap 8 mmol/L; Blood Urea Nitrogen 56 mg/dL (9-20); Calcium 9.1 mg/dL (8.4-10.2); Carbon Dioxide 27 mmol/L (22-30); Chloride 115 mmol/L (98-107); Glucose 258 mg/dL (74-99); Non-African American GFR(CKD) 55 (>60 ml/min/1.73 sqM); Potassium 3.9 mmol/L (3.5-5.1); Sodium 150 mmol/L (137-145)
[2023-07-30 09:03] LABS: Glucose,Whole Blood 253 mg/dL (70-110)
[2023-07-30] MEDS: ISOSORBIDE MONONITRATE ER 30 MG TAB.ER.24H PO SCH (09:04)
[2023-07-30] MEDS: CYANOCOBALAMIN 500 MCG TAB PO SCH (09:04)
[2023-07-30] MEDS: HEPARIN SODIUM,PORCINE 5,000 UNIT/ML 1 ML VIAL SQ SCH ×2 (09:04→20:05)
[2023-07-30] MEDS: EZETIMIBE 10 MG TAB PO SCH (09:04)
[2023-07-30] MEDS: LORATADINE 10 MG TAB PO SCH (09:04)
[2023-07-30] MEDS: ASPIRIN 81 MG PO SCH (09:04)
[2023-07-30] MEDS: FOLIC ACID 1 MG TAB PO SCH (09:04)
[2023-07-30] MEDS: PROPRANOLOL 40 MG TAB PO SCH ×2 (09:05→20:05)
[2023-07-30] MEDS: VENLAFAXINE HCL ER 150 MG CAP PO SCH ×2 (09:06→20:05)
[2023-07-30] MEDS: risperiDONE 2 MG TAB PO SCH ×2 (09:06→20:05)
[2023-07-30] MEDS: SODIUM CHLORIDE 0.45% 1,000 ML IV SCH (09:16)
[2023-07-30 10:05] LABS: Glucose,Whole Blood 143 mg/dL (70-110)
[2023-07-30] MEDS ORDERED: DEXTROSE 50% SYRINGE 50 ML IVP PRN ×4 (11:25→11:36)
[2023-07-30 11:44] LABS: Glucose,Whole Blood 80 mg/dL (70-110)
[2023-07-30] MEDS ORDERED: INSULIN DETEMIR (LEVEMIR) 100 UNIT/ML SYR SQ SCH (12:00)
[2023-07-30 12:25] LABS: African American GFR (CKD) 74 (>60 ml/min/1.73 sqM); Anion Gap 9 mmol/L; Blood Urea Nitrogen 54 mg/dL (9-20); Carbon Dioxide 26 mmol/L (22-30); Chloride 118 mmol/L (98-107); Glucose 66 mg/dL (74-99); Non-African American GFR(CKD) 64 (>60 ml/min/1.73 sqM); Potassium 3.8 mmol/L (3.5-5.1); Sodium 153 mmol/L (137-145)
[2023-07-30] MEDS: INSULIN ASPART (NovoLOG) 100 UNIT/ML VIAL SQ SCH ×3 (12:33→20:05)
--- NOTE | 2023-07-30 12:39 | P.HPIM ---
History of Present Illness H&P Date: 07/30/23 History of present illness; patient is 63-year-old gentleman with past medical h istory significant for hypertension, insulin-dependent diabetes mellitus, hyperlipidemia who presented to [facility] is a transfer from [facility] for DKA. Patient was admitted last month to [facility] with similar presentation, the Patient was also in DKA was treated ICU and later discharged to rehab. This time patient stated she was all right one day back when he started noticing that his blood sugars on his blood glucose monitor was trending high . Patient was given generalized lethargy and weakness. Denies any fever or chills. No complain of nausea, vomiting abdominal pain. Denies any chest pain or shortness of breath. Because of this generalized feeling of being unwell, patient presented to [facility] initial presentation her sugar was in the 1500s. Patient had an anion gap, patient was started on insulin drip and was transferred to [facility] Initial lab work done in the ER showed WBC 7.4, hemoglobin 8.4, platelet count 144, sodium 140, potassium 4.8, BUNs 63, creatinine 1.5, anion gap 15, blood glucose 941 Patient admitted to internal medicine service REVIEW OF SYSTEMS: CONSTITUTIONAL: As mentioned above HEENT: No recent visual problems or hearing problems. Denied any sore throat. CARDIOVASCULAR: No chest pain, orthopnea, PND, no palpitations, no syncope. PULMONARY: No shortness of breath, no cough, no hemoptysis. GASTROINTESTINAL: As mentioned above NEUROLOGICAL: No headaches, no weakness, no numbness. HEMATOLOGICAL: Denies any bleeding or petechiae. GENITOURINARY: Denies any burning micturition, frequency, or urgency. MUSCULOSKELETAL/RHEUMATOLOGICAL: Denies any joint pain, swelling, or any muscle pain. ENDOCRINE: Denies any polyuria or polydipsia. The rest of the 14-point review of systems is negative. PHYSICAL EXAMINATION: GENERAL: The patient is alert , not in any acute distress. Well developed, well nourished. HEENT: Pupils are round and equally reacting to light. EOMI. No scleral icterus. No conjunctival pallor. Normocephalic, atraumatic. No pharyngeal erythema. No thyromegaly. CARDIOVASCULAR: S1 and S2 present. No murmurs, rubs, or gallops. PULMONARY: Chest is clear to auscultation, no wheezing or crackles. ABDOMEN: Soft, nontender, nondistended, normoactive bowel sounds. No palpable organomegaly. MUSCULOSKELETAL: No joint swelling or deformity. EXTREMITIES: No cyanosis, clubbing, or pedal edema. NEUROLOGICAL: Gross neurological examination did not reveal any focal deficits. SKIN: No rashes. Assessment and plan DKA Insulin-dependent diabetes mellitus Hypertension Hyperlipidemia Seizure disorder History of psychosis Normocytic anemia Thrombocytopenia Thyroid mass Acute kidney injury Monitor vital signs Monitor CBC Monitor CMP Continue telemetry monitoring Serial electrolytes Monitor blood sugar levels Continue insulin drip Continue IV fluids Once gap closes, we'll switch to subcu insulin Resume home meds Labs and medication were reviewed.. Continue same treatment. Continue with symptomatic treatment. Resume home medication. Monitor labs and vitals. DVT and GI prophylaxis. Further recommendations as per clinical course of the patient Dictation was produced using [employer] dictation software. please excuse any grammatical, word or spelling errors. Past Medical History Past Medical History: Diabetes Mellitus, GERD/Reflux, Hyperlipidemia Additional Past Medical History / Comment(s): neuropathy, iron deficiency anemia, insomnia, History of Any Multi-Drug Resistant Organisms: Unobtainable Past Surgical History: Unable to Obtain Additional Past Surgical History / Comment(s): 2009 CABG, hernia Past Anesthesia/Blood Transfusion Reactions: No Reported Reaction Past Psychological History: Anxiety, Bipolar, Depression Smoking Status: Unknown if ever smoked Past Alcohol Use History: Unable to Obtain Additional Past Alcohol Use History / Comment(s): last drink 2021 Past Drug Use History: Unable to Obtain - Past Family History Mother Family Medical History: Coronary Artery Disease (CAD), Diabetes Mellitus Medications and Allergies Home Medications Medication Instructions Recorded Confirmed Type Aspirin EC [Ecotrin Low Dose] 81 mg PO DAILY 06/25/23 07/29/23 History Atorvastatin [Lipitor] 80 mg PO HS 06/25/23 07/29/23 History Divalproex ER [Depakote ER] 1,000 mg PO HS 06/25/23 07/29/23 History Ezetimibe [Zetia] 10 mg PO DAILY 06/25/23 07/29/23 History Isosorbide Mononitrate ER [Imdur] 30 mg PO DAILY 06/25/23 07/29/23 History Loratadine 10 mg PO DAILY 06/25/23 07/29/23 History Nitroglycerin Sl Tabs [Nitrostat] 0.4 mg SL Q5M PRN 06/25/23 07/29/23 History Omeprazole 40 mg PO DAILY@0800 06/25/23 07/29/23 History Propranolol HCl [Inderal] 80 mg PO HS 06/25/23 07/29/23 History Propranolol HCl [Inderal] 160 mg PO DAILY@0800 06/25/23 07/29/23 History Venlafaxine HCl ER [Effexor XR] 150 mg PO BID@0800,1500 06/25/23 07/29/23 History Melatonin [Melatonin ER] 10 mg PO HS 06/26/23 07/29/23 History risperiDONE [RisperDAL] 2 mg PO BID tab 07/05/23 07/29/23 Rx Ascorbic Acid [Vitamin C] 500 mg PO HS 07/29/23 07/29/23 History Cyanocobalamin [Vitamin B-12] 500 mcg PO DAILY 07/29/23 07/29/23 History Docusate [Colace] 100 - 200 mg PO HS PRN 07/29/23 07/29/23 History Ferrous Sulfate [Feosol] 325 mg PO HS 07/29/23 07/29/23 History Folic Acid 0.4 mg PO DAILY 07/29/23 07/29/23 History Furosemide [Lasix] 20 mg PO DIRECTED 07/29/23 07/29/23 History Glimepiride [Amaryl] 4 mg PO DIRECTED 07/29/23 07/29/23 History INSULIN ASPART (NovoLOG) [NovoLOG See Protocol SQ DIRECTED 07/29/23 07/29/23 History (formulary)] Insulin Detemir (Levemir) [Levemir] 20 unit SQ AC-BID 07/29/23 07/29/23 History Drummond-3/Dha/Epa/Fish Oil [Fish Oil 1 cap PO DAILY 07/29/23 07/29/23 History 1,000 mg Softgel] Vitamin E (Dl,Tocopheryl Acet) 450 mg PO BID 07/29/23 07/29/23 History [Vitamin E (1000 Iu = 450 MG)] Allergies Allergy/AdvReac Type Severity Reaction Status Date / Time latex Allergy Itching Verified 07/29/23 21:52 Penicillins Allergy Itching Verified 07/29/23 21:52 Physical Exam Vitals: Vital Signs Temp Pulse Pulse Resp BP BP Pulse Ox 07/30/23 04:00 70 16 127/69 96 07/30/23 00:05 98.1 F 71 16 126/63 92 L 07/29/23 23:15 69 18 115/64 96 07/29/23 22:17 65 18 111/63 97 07/29/23 21:17 65 18 101/80 97 07/29/23 20:57 69 18 92/64 97 07/29/23 20:08 98.4 F 68 20 126/70 95 Intake and Output 07/29/23 07/30/23 07/30/23 22:59 06:59 14:59 Intake Total 62.450 Output Total 700 Balance -637.550 Intake: Intake, IV Titration 62.450 Amount Insulin Regular 100 unit 62.450 In Sodium Chloride 0.9% 100 ml @ 9 UNITS/HR 9 mls /hr IV .[id number] [facility] Rx#: [id number] Output: Urine 700 Other: Voiding Method Indwelling Catheter Weight 88.451 kg 88.451 kg Results CBC & Chem 7: 07/29/23 20:24 07/30/23 11:28 Labs: Abnormal Lab Results - Last 24 Hours (Table) 07/29/23 07/29/23 07/29/23 Range/Units 20:24 20:24 20:24 RBC 2.55 L (4.30-5.90) m/uL Hgb 8.4 L (13.0-17.5) gm/dL Hct 24.4 L (39.0-53.0) % Plt Count 144 L (150-450) k/uL Lymphocytes # 0.8 L (1.0-4.8) k/uL VBG pH 7.29 L (7.31-7.41) VBG HCO3 21 L (24-28) mmol/L Sodium (137-145) mmol/L Chloride (98-107) mmol/L Carbon Dioxide 20 L (22-30) mmol/L BUN 63 H (9-20) mg/dL Creatinine 1.59 H (0.66-1.25) mg/dL Glucose 941 H* (74-99) mg/dL POC Glucose (mg/dL) (70-110) mg/dL Magnesium 2.6 H (1.6-2.3) mg/dL Alkaline Phosphatase 261 H (38-126) U/L Total Protein 5.8 L (6.3-8.2) g/dL Albumin 3.4 L (3.5-5.0) g/dL 07/29/23 07/29/23 07/29/23 Range/Units 20:25 22:27 23:39 RBC (4.30-5.90) m/uL Hgb (13.0-17.5) gm/dL Hct (39.0-53.0) % Plt Count (150-450) k/uL Lymphocytes # (1.0-4.8) k/uL VBG pH (7.31-7.41) VBG HCO3 (24-28) mmol/L Sodium (137-145) mmol/L Chloride (98-107) mmol/L Carbon Dioxide (22-30) mmol/L BUN (9-20) mg/dL Creatinine (0.66-1.25) mg/dL Glucose (74-99) mg/dL POC Glucose (mg/dL) >600 H >600 H >600 H (70-110) mg/dL Magnesium (1.6-2.3) mg/dL Alkaline Phosphatase (38-126) U/L Total Protein (6.3-8.2) g/dL Albumin (3.5-5.0) g/dL 07/30/23 07/30/23 07/30/23 Range/Units 01:01 02:04 02:52 RBC (4.30-5.90) m/uL Hgb (13.0-17.5) gm/dL Hct (39.0-53.0) % Plt Count (150-450) k/uL Lymphocytes # (1.0-4.8) k/uL VBG pH (7.31-7.41) VBG HCO3 (24-28) mmol/L Sodium (137-145) mmol/L Chloride 110 H (98-107) mmol/L Carbon Dioxide (22-30) mmol/L BUN 62 H (9-20) mg/dL Creatinine 1.56 H (0.66-1.25) mg/dL Glucose 606 H* (74-99) mg/dL POC Glucose (mg/dL) >600 H >600 H (70-110) mg/dL Magnesium (1.6-2.3) mg/dL Alkaline Phosphatase (38-126) U/L Total Protein (6.3-8.2) g/dL Albumin (3.5-5.0) g/dL 07/30/23 07/30/23 07/30/23 Range/Units 03:14 04:03 05:16 RBC (4.30-5.90) m/uL Hgb (13.0-17.5) gm/dL Hct (39.0-53.0) % Plt Count (150-450) k/uL Lymphocytes # (1.0-4.8) k/uL VBG pH (7.31-7.41) VBG HCO3 (24-28) mmol/L Sodium (137-145) mmol/L Chloride (98-107) mmol/L Carbon Dioxide (22-30) mmol/L BUN (9-20) mg/dL Creatinine (0.66-1.25) mg/dL Glucose (74-99) mg/dL POC Glucose (mg/dL) >600 H 487 H 432 H (70-110) mg/dL Magnesium (1.6-2.3) mg/dL Alkaline Phosphatase (38-126) U/L Total Protein (6.3-8.2) g/dL Albumin (3.5-5.0) g/dL 07/30/23 07/30/23 07/30/23 Range/Units 06:15 07:47 08:08 RBC (4.30-5.90) m/uL Hgb (13.0-17.5) gm/dL Hct (39.0-53.0) % Plt Count (150-450) k/uL Lymphocytes # (1.0-4.8) k/uL VBG pH (7.31-7.41) VBG HCO3 (24-28) mmol/L Sodium 150 H (137-145) mmol/L Chloride 115 H (98-107) mmol/L Carbon Dioxide (22-30) mmol/L BUN 56 H (9-20) mg/dL Creatinine 1.35 H (0.66-1.25) mg/dL Glucose 258 H (74-99) mg/dL POC Glucose (mg/dL) 384 H 329 H (70-110) mg/dL Magnesium (1.6-2.3) mg/dL Alkaline Phosphatase (38-126) U/L Total Protein (6.3-8.2) g/dL Albumin (3.5-5.0) g/dL Thrombosis Risk Factor Assmnt - Choose All That Apply Any of the Below Risk Factors Present?: No Other Risk Factors: Yes Each Risk Factor Represents 2 Points: Age 61-74 years Thrombosis Risk Factor Assessment Total Risk Factor Score: 2 Thrombosis Risk Factor Assessment Level: Low Risk
[2023-07-30] MEDS: INSULIN DETEMIR (LEVEMIR) 100 UNIT/ML SYR SQ SCH ×2 (13:11→20:05)
[2023-07-30 16:59] LABS: Glucose,Whole Blood 381 mg/dL (70-110)
[2023-07-30 20:00] LABS: Glucose,Whole Blood 380 mg/dL (70-110)
[2023-07-30] MEDS: ASCORBIC ACID 500 MG TAB PO SCH (20:05)
[2023-07-30] MEDS: ATORVASTATIN 80 MG TAB PO SCH (20:05)
[2023-07-30] MEDS: DIVALPROEX ER 500 MG TAB.ER.24H PO SCH (20:05)
[2023-07-30] MEDS: FERROUS SULFATE 325 MG TAB PO SCH (20:05)
[2023-07-30] MEDS: MELATONIN 5 MG TABLET PO SCH (20:05)
[2023-07-31] MEDS: SODIUM CHLORIDE 0.45% 1,000 ML IV SCH ×3 (04:45→16:45)
[2023-07-31 06:06] LABS: Glucose,Whole Blood 205 mg/dL (70-110)
[2023-07-31] MEDS: INSULIN ASPART (NovoLOG) 100 UNIT/ML VIAL SQ SCH ×4 (06:08→20:03)
[2023-07-31] MEDS: PANTOPRAZOLE 40 MG TABLET PO SCH (06:08)
[2023-07-31] MEDS: INSULIN DETEMIR (LEVEMIR) 100 UNIT/ML SYR SQ SCH ×2 (06:08→20:03)
[2023-07-31] MEDS: EZETIMIBE 10 MG TAB PO SCH (08:55)
[2023-07-31] MEDS: FOLIC ACID 1 MG TAB PO SCH (08:55)
[2023-07-31] MEDS: ASPIRIN 81 MG PO SCH (08:55)
[2023-07-31] MEDS: CYANOCOBALAMIN 500 MCG TAB PO SCH (08:55)
[2023-07-31] MEDS: LORATADINE 10 MG TAB PO SCH (08:55)
[2023-07-31] MEDS: ISOSORBIDE MONONITRATE ER 30 MG TAB.ER.24H PO SCH (08:55)
[2023-07-31] MEDS: HEPARIN SODIUM,PORCINE 5,000 UNIT/ML 1 ML VIAL SQ SCH ×2 (08:55→20:04)
[2023-07-31] MEDS: PROPRANOLOL 40 MG TAB PO SCH ×2 (08:56→20:04)
[2023-07-31] MEDS: risperiDONE 2 MG TAB PO SCH ×2 (08:56→20:04)
[2023-07-31] MEDS: VENLAFAXINE HCL ER 150 MG CAP PO SCH ×2 (08:57→20:04)
[2023-07-31 11:21] LABS: Glucose,Whole Blood 163 mg/dL (70-110)
[2023-07-31 11:29] VITALS: BMI 26.4
[2023-07-31 11:42] LABS: Basophils % (A) 1 %; Eosinophils # (A) 0.2 k/uL (0-0.7); Eosinophils % (A) 4 %; HCT 24.1 % (39.0-53.0); HGB 8.3 gm/dL (13.0-17.5); Lymphocytes # (A) 1.8 k/uL (1.0-4.8); Lymphocytes % (A) 31 %; MCH 31.6 pg (25.0-35.0); MCHC 34.3 g/dL (31.0-37.0); MCV 92.3 fL (80.0-100.0); Mean Platelet Volume 8.5; Monocytes # (A) 0.2 k/uL (0-1.0); Monocytes % (A) 4 %; Neutrophils # (A) 3.5 k/uL (1.3-7.7); Neutrophils % (A) 59 %; Platelet Count 124 k/uL (150-450); RBC 2.61 m/uL (4.30-5.90); RDW 14.3 % (11.5-15.5); WBC 5.9 k/uL (3.8-10.6)
[2023-07-31 12:12] LABS: African American GFR (CKD) >90 (>60 ml/min/1.73 sqM); Anion Gap 5 mmol/L; Blood Urea Nitrogen 31 mg/dL (9-20); Calcium 8.1 mg/dL (8.4-10.2); Carbon Dioxide 27 mmol/L (22-30); Chloride 109 mmol/L (98-107); Glucose 137 mg/dL (74-99); Non-African American GFR(CKD) 88 (>60 ml/min/1.73 sqM); Potassium 3.8 mmol/L (3.5-5.1); Sodium 141 mmol/L (137-145)
[2023-07-31 16:41] LABS: Glucose,Whole Blood 277 mg/dL (70-110)
[2023-07-31 19:58] LABS: Glucose,Whole Blood 310 mg/dL (70-110)
[2023-07-31] MEDS: FERROUS SULFATE 325 MG TAB PO SCH (20:04)
[2023-07-31] MEDS: ASCORBIC ACID 500 MG TAB PO SCH (20:04)
[2023-07-31] MEDS: DIVALPROEX ER 500 MG TAB.ER.24H PO SCH (20:04)
[2023-07-31] MEDS: MELATONIN 5 MG TABLET PO SCH (20:04)
[2023-07-31] MEDS: ATORVASTATIN 80 MG TAB PO SCH (20:04)
[2023-08-01 03:17] VITALS: RESP 18
[2023-08-01 05:54] LABS: Glucose,Whole Blood 148 mg/dL (70-110)
[2023-08-01] MEDS: PANTOPRAZOLE 40 MG TABLET PO SCH (05:59)
[2023-08-01] MEDS: INSULIN DETEMIR (LEVEMIR) 100 UNIT/ML SYR SQ SCH (05:59)
[2023-08-01] MEDS: INSULIN ASPART (NovoLOG) 100 UNIT/ML VIAL SQ SCH ×2 (06:15→11:38)
[2023-08-01] MEDS: SODIUM CHLORIDE 0.45% 1,000 ML IV SCH (06:15)
[2023-08-01 07:10] LABS: Basophils % (A) 1 %; Eosinophils # (A) 0.3 k/uL (0-0.7); Eosinophils % (A) 8 %; HGB 9.1 gm/dL (13.0-17.5); Lymphocytes # (A) 1.7 k/uL (1.0-4.8); Lymphocytes % (A) 40 %; MCH 31.4 pg (25.0-35.0); MCHC 33.8 g/dL (31.0-37.0); MCV 93.1 fL (80.0-100.0); Mean Platelet Volume 8.4; Monocytes # (A) 0.2 k/uL (0-1.0); Monocytes % (A) 5 %; Neutrophils # (A) 1.9 k/uL (1.3-7.7); Neutrophils % (A) 45 %; Platelet Count 131 k/uL (150-450); WBC 4.2 k/uL (3.8-10.6)
[2023-08-01] MEDS: VENLAFAXINE HCL ER 150 MG CAP PO SCH (08:13)
[2023-08-01] MEDS: PROPRANOLOL 40 MG TAB PO SCH (08:13)
[2023-08-01] MEDS: ISOSORBIDE MONONITRATE ER 30 MG TAB.ER.24H PO SCH (08:13)
[2023-08-01] MEDS: risperiDONE 2 MG TAB PO SCH (08:13)
[2023-08-01] MEDS: EZETIMIBE 10 MG TAB PO SCH (08:13)
[2023-08-01] MEDS: CYANOCOBALAMIN 500 MCG TAB PO SCH (08:13)
[2023-08-01] MEDS: FOLIC ACID 1 MG TAB PO SCH (08:13)
[2023-08-01] MEDS: ASPIRIN 81 MG PO SCH (08:13)
[2023-08-01] MEDS: LORATADINE 10 MG TAB PO SCH (08:14)
[2023-08-01] MEDS: HEPARIN SODIUM,PORCINE 5,000 UNIT/ML 1 ML VIAL SQ SCH (08:14)
[2023-08-01 08:19] VITALS: TEMP 98.1
[2023-08-01 08:50] LABS: African American GFR (CKD) >90 (>60 ml/min/1.73 sqM); Anion Gap 8 mmol/L; Blood Urea Nitrogen 21 mg/dL (9-20); Calcium 8.6 mg/dL (8.4-10.2); Carbon Dioxide 27 mmol/L (22-30); Chloride 109 mmol/L (98-107); Glucose 161 mg/dL (74-99); Non-African American GFR(CKD) >90 (>60 ml/min/1.73 sqM); Potassium 4.1 mmol/L (3.5-5.1); Sodium 144 mmol/L (137-145)
[2023-08-01 11:25] LABS: Glucose,Whole Blood 376 mg/dL (70-110)
[2023-08-01 11:37] VITALS: BP 138/72; PULSE 57
== END 2023-08-01 14:03 | disposition home or self-care (01) | DRG 638 ==
LOC: EC 20:06 → 3SCARD 22:03
PROVIDERS: ADMIT Hospitalist; ATTEND Hospitalist
DX: E11.10 Type 2 diabetes mellitus with ketoacidosis without coma (principal); N17.9 Acute kidney failure, unspecified; D69.6 Thrombocytopenia, unspecified; I10 Essential (primary) hypertension; G40.909 Epilepsy, unspecified, not intractable, without status epilepticus; D64.9 Anemia, unspecified; F31.9 Bipolar disorder, unspecified; E03.9 Hypothyroidism, unspecified; Z79.890 Hormone replacement therapy; E78.5 Hyperlipidemia, unspecified; E87.5 Hyperkalemia; F41.9 Anxiety disorder, unspecified; Z79.4 Long term (current) use of insulin; Z79.82 Long term (current) use of aspirin; Z79.84 Long term (current) use of oral hypoglycemic drugs; Z95.1 Presence of aortocoronary bypass graft; Z79.899 Other long term (current) drug therapy; Z82.49 Family history of ischemic heart disease and other diseases of the circulatory system; Z88.0 Allergy status to penicillin; Z91.040 Latex allergy status
CPT/HCPCS: 36415; 80048; 80051; 80053; 82009; 82565; 82803; 82947; 83036; 83605; 83735; 84100; 84520; 85025; 94760; 96360; 96361; 99291